=== PATIENT | male | born 1950 | race Caucasian/White ===

== ENCOUNTER 2018-04-20 22:56 | Emergency (ER) | payer BC, SELFPAY ==
[2018-04-20 22:57] VITALS: BP 131/72; PULSE 69; RESP 18; TEMP 37.2; O2SAT 98; BMI 30.3
--- NOTE | 2018-04-20 23:18 | CT_ITS ---
STUDY: CT ABDOMEN AND PELVIS WITHOUT CONTRAST REASON FOR EXAM: Male, 67 years old. Lower quadrant pain and loose stools. RADIATION DOSAGE (If Supplied By Facility): CTDIvol = ( 14.04 ) mGy, DLP = ( 722.34 ) mGycm TECHNIQUE: Transaxial images were obtained from the dome of the diaphragm to the symphysis pubis without oral contrast, and without intravenous contrast. Sagittal and coronal images were reconstructed. Individualized dose optimization techniques were used for this CT. COMPARISON: None. FINDINGS: The visualized lung bases are unremarkable. The visualized portions of the heart are within normal limits. Normal liver. The gallbladder is contracted. There is mild splenomegaly. Normal pancreas. Normal bilateral adrenal glands. There is nonspecific mild bilateral perinephric stranding. There is no evidence of hydronephrosis. Normal visualized stomach. The small bowel loops are fluid-filled but normal in caliber. There is a density in the descending duodenum probably due to undissolved pill. There is diverticulosis of the sigmoid and distal descending colon with inflammatory changes of the distal descending colon with thickening consistent with acute diverticulitis. No free air or drainable abscess are seen although there are small pockets of air which may represent contained perforation. The appendix is visualized and appears normal. There is diffuse atherosclerotic calcification of the abdominal aorta with elongation and tortuosity, but without a demonstrated aneurysm. Normal inferior vena cava. Normal retroperitoneum. Normal urinary bladder. There is a small umbilical hernia containing fat. There are small bilateral inguinal hernias containing fat. There are degenerative changes in the lower lumbar spine. CT/Abdomen/Pelvis without Cont IMPRESSION: Acute diverticulitis of the distal descending and sigmoid colon as described above. No demonstrated drainable abscess. Electronically Signed: Silverio Brady MD at 0:36 EDT Tel , Service support ,
--- NOTE | 2018-04-20 23:19 | ED.VISSUMM ---
- ER Visit Summary Date of Service: 04/20/18 Chief Complaint: Left lower quadrant abdominal pain History of Present Illness: The patient is a 67 M left lower quadrant abdominal pain starting this afternoon. She had mild vague symptoms when helping with [employer]. After driving home, had sharp sensation dropping into his knees, he stood up right away. States had loose stools 2 days ago, however is normalized. No fevers chills or sweats. No nausea or vomiting. No urinary symptoms. No history of kidney stones or diverticulitis. Has had a colonoscopy in the past with no acute findings. Patient is on medications for hypertension and gout. No surgical history. States currently denies any pain. Pain worse with palpation. Physical Examination: General: Alert and oriented ?3, no acute distress HEENT: Normocephalic, atraumatic. Moist mucosa membranes Neck: supple, nontender. Cardiovascular: Regular rate and rhythm, no murmurs Respiratory: Normal breath sounds, symmetric, no distress Abdomen: Soft, nondistended. Reproducible umbilical hernia. Pinpoint tenderness left lower quadrant, no guarding or rebound. Extremities: Nontender, no edema, pulses intact ?4 Neuro: no focal neurological deficits. Test Results: Urine noted leukocytes, no hematuria. CT abdomen pelvis distal: Sigmoid diverticulitis with no complications. Emergency Department Course and Treatment: Patient vitals stable, nontoxic. Nonsurgical abdomen. Pinpoint left lower quadrant pain. Urine negative for hematuria. CT did note signs of diverticulitis distal colon sigmoid. Patient did not require any pain medicines. Cipro Flagyl started orally. He will use Tylenol as needed. Signs and symptoms to return to the ED. Follow-up with his PCP. All questions were answered. Treatment Plan: [] Disposition: Discharge Impression: Acute diverticulitis This note was generated with [employer] dictation software. It may contain incorrect words, spelling, and punctuation that were not noted in review of the chart prior to signing ED Disposition - Plan for ED Patient: Disposition: Home or Assisted Living Chief Complaint: Abd Pain Diagnosis: Acute diverticulitis Instructions: ED Diverticulitis Prescriptions: Metronidazole [Flagyl] 500 mg PO Q8H #30 tablet Ciprofloxacin [Cipro] 500 mg PO BID #20 tablet Referrals: NOT,DEFINED [NON-STAFF] - Additional Instructions: Distal colon and sigmoid diverticulitis. Take Cipro and Flagyl as prescribed. Use Tylenol as needed. [facility]. Return if any worsening symptoms. Avoid alcohol products while on Flagyl up to week after.
[2018-04-20 23:46] LABS: Mucous, Urine 0 SEEN /hpf (<or=2+); Red Blood Cells-Urine 0 SEEN /hpf (0-5); Squamous Epithelial Cells - UA 0 SEEN /hpf (0-5)
[2018-04-20 23:56] LABS: Color, Urine Yellow (Yellow); Glucose, Dipstick Normal (Normal); Ketone-Dipstick Negative (Negative); Leukocyte Esterase-Dipstick 25 /ul (Negative); Nitrite-Dipstick Negative (Negative); Occult Blood-Urine Negative /ul (Negative); Protein-Dipstick Negative (Negative); Specific Gravity, Urine 1.015 (1.002-1.030); Urine Bilirubin Dipstick Negative (Negative); Urine Clarity Clear (Clear); Urine Urobilinogen Normal (Normal)
[2018-04-21 00:03] LABS: Bacteria RARE /hpf (None Seen); White Blood Cells 0-5 SEEN /hpf (0-5)
[2018-04-21 01:13] VITALS: BP 113/62; PULSE 66; RESP 18; O2SAT 95
[2018-04-21] MEDS: metroNIDAZOLE 500 MG Tablet PO (01:13)
[2018-04-21] MEDS: Ciprofloxacin 500 MG Tablet PO (01:13)
== END 2018-04-21 01:14 | disposition home or self-care (01) ==
PROVIDERS: Emergency Provider Emergency Medicine
DX: K57.32 Diverticulitis of large intestine without perforation or abscess without bleeding (principal); I10 Essential (primary) hypertension; M10.9 Gout, unspecified; Z87.891 Personal history of nicotine dependence
CPT/HCPCS: 74176; 81001; 99283

== ENCOUNTER 2018-06-06 06:05 | Day surgery (SDC) | payer BC, SELFPAY ==
[2018-06-06] VITALS (8 sets, daily range): BP systolic 93–135; BP diastolic 50–82; PULSE 50–58; RESP 16; TEMP 36.5–36.6; O2SAT 94–100; BMI 29.6
--- NOTE | 2018-06-06 07:00 | COLBX_PTH ---
PATIENT: VERNA VALE LOC: EN U#:[id number] AGE/SX: 67/M ROOM: RE06/06/[address]: Dr. Jus Alfaro MD : 1950 BED: DIS: 06/06/2018 SPEC #: [id number] RECD: 06/06/18 12:48 STATUS: MONE CASSANDRA #: [id number] NADJA: 06/06/18 07:[address]: Jus Alfaro DEPT: SURGICAL PATHOLOGY RECD BY: Quinn Herman ENTERED: 06/06/18 13:58 SP TYPE: COLON BX OTHR DR: No Primary Care Phys Tissues: Descending colon Procedures: Surgery Specimen Level IV HEADER OPERATION: Colonoscopy PRE-OP DIAGNOSIS: Diverticulitis TISSUE SUBMITTED: Polyp descending colon MICROSCOPIC DIAGNOSIS Descending colon polyp, biopsy: Polypoid fragment of benign colonic mucosa. See comment. AM:gregory 06/07/18 COMMENT Neither hyperplastic nor adenomatous change is seen. Clinical correlation is suggested. MICROSCOPIC DESCRIPTION Slides are reviewed. GROSS DESCRIPTION Received in fixative is one container labeled with the patient's name and designated polyp descending colon. The specimen consists of one irregular fragment of light mcnamara soft tissue that measures 0.3 x 0.2 x 0.1 cm. The specimen is totally submitted in one cassette. / SJ:rg 06/06/18 TC:5 [facility]: [id number]
--- NOTE | 2018-06-06 07:37 | PCM.OPRPT ---
Problem List (1) Screening for intestinal cancer Status: Acute Report of Operation Date of Procedure: 06/06/18 Pre-Operative Diagnosis: Screening for intestinal cancer Post-Operative Diagnosis: Sessile polyp of the descending colon. Pancolonic diverticulosis. Widely patent distal sigmoid colorectal anastomosis Surgery/Procedure Performed:: Colonoscopy with hot snare polypectomy Description of Surgical Findings:: Timeout informed consent was obtained. 59-year-old gent was taken to the endoscopy suite placed in left loud skin position. Throughout the procedure he received 85 mg Demerol and 3 mg of Versed is intravenous sedation. Digital rectal exam performed. Normal anal tone. 2+ hemorrhoids. Tubular smooth prostate. No mass lesions. Flexible colonoscope inserted the rectum advanced through a slightly tortuous sigmoid colon it was then readily advanced to the transverse colon with some transabdominal pressure is nicely advanced to the cecum. Bowel prep was good. The cecum ileocecal valve was nicely achieved. The scope was then carefully withdrawn from the cecum ascending colon transverse colon into the descending colon. Pancolonic diverticulosis was identified. In the descending colon there was a sessile 7 mm diameter polyp. Hot snare was used to resect and retrieved. Hemostasis was intact. The scope was further withdrawn with extensive diverticular disease of the remainder of the descending and sigmoid colon. A widely patent colorectal anastomosis identified. Scope was retroflexed in the rectum anorectal verge inspected mild hemorrhoidal changes noted. Excess fluid and air was aspirated free. The procedure was completed with the patient tolerating it well. Impression Sessile polyp of the descending colon Pancolonic diverticulosis Widely patent colorectal anastomosis The patient's previous colonoscopy was 2006. He had a bout of acute diverticulitis April 20, 2018. Pancolonic diverticulosis identified. No findings of acute inflammation at this time. Pending follow-up pathology will recommend follow-up colonoscopy at 3-5 years. Scope was inserted 0714. The cecum was reached at 0720. Procedure was completed at 0732. No current primary care physician. Medical care provided by the [facility] Jus Alfaro M.D., F.A.C.S. Type of Anesthesia:: IV Sedation
== END 2018-06-06 08:32 | disposition home or self-care (01) ==
LOC: EN 06:05 → AC 06:06
PROVIDERS: Visit Provider Surgery
PROC: 0DJD8ZZ Inspection of Lower Intestinal Tract, Via Natural or Artificial Opening Endoscopic (ICD-10-PCS; CPT 45378; principal; 2018-06-06 06:55)
DX: Z12.11 Encounter for screening for malignant neoplasm of colon (principal); K63.5 Polyp of colon; K57.92 Diverticulitis of intestine, part unspecified, without perforation or abscess without bleeding; K64.9 Unspecified hemorrhoids; M19.90 Unspecified osteoarthritis, unspecified site; I10 Essential (primary) hypertension; M10.9 Gout, unspecified; G47.30 Sleep apnea, unspecified; Z79.899 Other long term (current) drug therapy; Z87.891 Personal history of nicotine dependence
CPT/HCPCS: 45385; 88305; 99152; 99153; J7120

== ENCOUNTER → 2018-11-17 08:54 | Outpatient (CLI) | payer BC, SELFPAY ==
[2018-11-17 08:59] LABS: Bacteria 0 SEEN /hpf (None Seen); Mucous, Urine 0 SEEN /hpf (<or=2+); Red Blood Cells-Urine 0 SEEN /hpf (0-5)
[2018-11-17 10:17] LABS: Absolute Lymphocyte Count 2.09 X10^3/ul (0.83-4.51); Absolute Neutrophil Count 3.3 X10^3/uL (2.0-7.7); Basophil# 0.02 X10^3/uL; Basophil% 0.3 % (0-1); Color, Urine Yellow (Yellow); Eosinophil# 0.17 X10^3/uL; Eosinophils% 2.8 % (0-5); Glucose, Dipstick Normal (Normal); Hematocrit 42.7 % (40-54); Hemoglobin 14.5 g/dl (13.0-16.5); Ketone-Dipstick Negative (Negative); Leukocyte Esterase-Dipstick 25 /ul (Negative); Lymphocyte # 2.09 X10^3/ul (4.0); Lymphocyte % 33.9 % (19-41); Mean Corpuscular Hgb 33.7 pg (27.0-32.0); Mean Corpuscular Volume 99.3 fL (80-94); Mean Platelet Vol. 10.6 fl (6.2-12.0); Monocyte% 9.7 % (0-10); Neutrophil # 3.27 X10^3/uL (2.7-7.7); Neutrophil % 53.1 % (47-70); Nitrite-Dipstick Negative (Negative); Occult Blood-Urine Negative /ul (Negative); POSITIVE COUNT NO; POSITIVE DIFFERENTIAL NO; POSITIVE MORPHOLOGY NO; Platelet Count 176 K/mm3 (150-450); Protein-Dipstick 15 mg/dl (Negative); RBC Distribution Width CV 13.2 % (11.6-14.6); RBC Distribution Width SD 47.6 fl (35.1-43.9); Urine Bilirubin Dipstick Negative (Negative); Urine Clarity Sl. Cloudy (Clear); Urine Urobilinogen Normal (Normal); White Blood Count 6.2 K/mm3 (4.4-11.0)
[2018-11-17 10:26] LABS: Squamous Epithelial Cells - UA 0-5 SEEN /hpf (0-5); White Blood Cells 0-5 SEEN /hpf (0-5)
[2018-11-17 10:35] LABS: Vitamin D,25 Hydroxy 56.1 ng/mL (29.95-100.01)
[2018-11-17 10:50] LABS: AST(SGOT) 48 U/L (15-37); Alanine Aminotransfer ALT/SGPT 77 U/L (16-61); Alkaline Phosphatase 93 U/L (45-117); Anion Gap 10 (5-15); BUN 15 mg/dL (7-18); BUN/Creat Ratio 11.6 RATIO (10-20); Chloride 102 mmol/L (98-107); Cholesterol 156 mg/dL (200); Creatinine, Serum 1.29 mg/dL (0.70-1.30); EST Glomerular Filtration Rate 59 mL/min (>60); Est Glom Filt Rate - Afr Amer 71 mL/min (>60); Globulin 3.9 g/dL (2.2-4.2); Glucose 119 mg/dL (74-106); High Density Lipoprotein 48 mg/dL; Protein, Total 7.9 g/dL (6.4-8.2); Sodium Level 139 mmol/L (136-145); Thyroid Stim Hormone (TSH) 0.93 uIU/mL (0.358-3.74); Triglycerides 166 mg/dL; Very Low Density Lipoprotein 33 mg/dL (5-40)
== END ==
PROVIDERS: Family Provider Family Medicine; PCP Family Medicine; Visit Provider Family Medicine
DX: I10 Essential (primary) hypertension (principal); M10.9 Gout, unspecified; E55.9 Vitamin D deficiency, unspecified; Z13.220 Encounter for screening for lipoid disorders
CPT/HCPCS: 36415; 80053; 80061; 81001; 82306; 84443; 84550; 85025

== ENCOUNTER → 2018-11-29 08:12 | Outpatient (CLI) | payer BC, SELFPAY ==
[2018-11-29 11:07] LABS: ALB/GLOB Ratio 1.1 RATIO (0.9-2.4); AST(SGOT) 54 U/L (15-37); Alanine Aminotransfer ALT/SGPT 76 U/L (16-61); Albumin, Serum 3.8 g/dL (3.2-5.0); Alkaline Phosphatase 84 U/L (45-117); Anion Gap 11 (5-15); BUN 17 mg/dL (7-18); BUN/Creat Ratio 15.9 RATIO (10-20); Calcium,Total 9.4 mg/dL (8.5-10.1); Chloride 100 mmol/L (98-107); Creatinine, Serum 1.07 mg/dL (0.70-1.30); EST Glomerular Filtration Rate 73 mL/min (>60); Est Glom Filt Rate - Afr Amer 88 mL/min (>60); Globulin 3.4 g/dL (2.2-4.2); Glucose 106 mg/dL (74-106); Potassium 3.5 mmol/L (3.5-5.1); Protein, Total 7.2 g/dL (6.4-8.2); Sodium Level 138 mmol/L (136-145)
[2018-11-29 11:17] LABS: Hemoglobin A1c 5.1 % (4.2-6.3)
[2018-11-30 07:54] LABS: HEPATITIS B SURFACE AG Negative (Negative); Hep B Surface Antibodies Non Reactive (.); Hep C Antibodies <0.1 s/co ratio (0.0-0.9)
== END ==
PROVIDERS: Family Provider Family Medicine; PCP Family Medicine; Visit Provider Family Medicine
DX: N28.9 Disorder of kidney and ureter, unspecified (principal)
CPT/HCPCS: 36415; 80053; 83036; 86706; 86803; 87340

== ENCOUNTER 2019-02-20 08:00 | Outpatient (RCR) | payer MEDICARE, SELFPAY ==
--- NOTE | 2019-01-11 13:43 | HP.PTEVAL ---
Patient's Visit Information VERNA VALE is a 68 year old M referred to Physical Therapy by Tigre Duran DPM with a diagnosis of B plantarfascitis. Date of Evaluation: 01/11/19 Physical Therapist: Giovanni Soto PT, ATC - Visit Plan Frequency: 2x /Week Duration: 2 Weeks Plan: DTR to B calves, stick rollout, foam roller, manual stretching, and HEP - Subjective Findings: Pt reports he had B foot pain for several years. Pt reports after receiving [address] Duran, his foot pain is gone. However, pt reports he remains very tight in B gastroc regions. Pt reports he is afraid if he doesnt get his calves loosened up, his pain will return. Pt reports he has no limitations at this time. Pt reports no tingling or nmbness in B feet. No sig sleep difficulty secondary to pain. Pt reports he has no pain at this time. 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 - Pain B feet Pain Intensity (Out of 10): 0 Pain Intensity Range: 0 - Objective Neuro: B LE sensation is WNL to light touch. B achilles reflex= 1/3. Palpation: No pain on plantarfascia's. Mild heel pain. No obvious deformity. B gastrocs are very tight. ROM: L ankle DF= -9, R ankle DF= 0. MMT: B ankles 5/5 throughout. Gait. Pt ambulates with late pronation indicating pes cavus - Goals Goal 1:: I with HEP in visits Goal Time Frame: 2 Weeks - Rehabilitation Potential Physical Therapy Diagnosis: B has B foot pain secondary to B plantarfascitis Rehabilitation Potential: Good - Anticipated Interventions Patient/Client Instruction: Educate patient on: Condition, Plan of Care For the Purpose of:: To improve self management Therapeutic Exercise to Include: Flexibilty training, Active ROM For the Purpose of:: To decrease pain, To increase ROM Manual Therapy Techniques to Include: Soft tissue mobilization For the Purpose of:: To decrease pain, To increase ROM Thank you for the opportunity to evaluate your patient. For Medicare and Medicare HMO plans, please review the plan of care and approve it. It will need to be FAXED BACK to us at [phone] for Medicare purposes. For Medicare only, by signing this I certify the plan of care. Please let me know if there are questions or concerns regarding this plan of care. Physician Signature: Date:
--- NOTE | 2019-02-20 08:49 | HP.PTREVAL_ITS ---
Tigre Duran, BENNY, It has been my pleasure to treat VERNA VALE over the last 7 visits for B plantarfascitis. Please see the progress note below for an update on the physical therapy plan of care! Subjective: L foot is a little tight Objective/Function: ankle DF ROM: Bilat feet 5 degrees. B foot pain 11/02. Pt i s progressing well but pain and limited ROM continue to limit his functional mobility Plan Plan: Attempt to get 6 more visits approved to continue with decreasing pain and increasing B ankle DF ROM Goals Goal 1:: I with HEP in 5 visits Goal Time Frame: 2 Weeks Anticipated Interventions Patient/Client Instruction: Educate patient on: Condition, Plan of Care For the Purpose of:: To improve self management Therapeutic Exercise to Include: Flexibilty training, Active ROM For the Purpose of:: To decrease pain, To increase ROM Manual Therapy Techniques to Include: Soft tissue mobilization For the Purpose of:: To decrease pain, To increase ROM Please do not hesitate to contact me at [phone] by phone or Fax: if you have questions or concerns regarding this new plan of care! Sincerely, Giovanni Soto, PT, ATC
--- NOTE | 2019-05-10 11:16 | HP.PT.NRP ---
HP - Discharge Summary (1) - Patient Information VERNA VALE was seen in my office for initial evaluation on 01/11/19. The following Plan of Care was established for this patient: Initial Frequency: 2x /Week Initial Duration: 2 Weeks - Anticipated Interventions Patient/Client Instruction: Educate patient on: Condition, Plan of Care For the Purpose of:: To improve self management Therapeutic Exercise to Include: Flexibilty training, Active ROM For the Purpose of:: To decrease pain, To increase ROM Manual Therapy Techniques to Include: Soft tissue mobilization For the Purpose of:: To decrease pain, To increase ROM This patient was last seen in our office . Pertinent comments regarding their Physical therapy will appear below: Pt was treated for 7 PT visits for his B foot pain through the date of 02/20/19. Pt has not returned since that date and is discontinued at this time. At this point I will be discontinuing this patient from physical therapy. I would be happy to see this patient again in the future if found appropriate by the physician. Thank you! Giovanni Soto, PT, ATC
== END 2019-02-20 19:00 | disposition home or self-care (01) ==
LOC: PT 08:00
PROVIDERS: Family Provider Family Medicine; PCP Family Medicine; Referring Provider Podiatrist; Visit Provider Podiatrist
DX: M72.2 Plantar fascial fibromatosis (principal); M67.01 Short Achilles tendon (acquired), right ankle; M67.02 Short Achilles tendon (acquired), left ankle
CPT/HCPCS: 97110; 97140; 97161

== ENCOUNTER → 2019-02-26 06:37 | Outpatient (CLI) | payer MEDICARE, SELFPAY ==
--- NOTE | 2019-02-26 06:45 | MRI_ITS ---
STUDY: MRI RIGHT FOOT REASON FOR EXAM: Arch pain, evaluate for plantar fasciitis. TECHNIQUE: Standardized fat and water weighted pulse sequences were obtained in all 3 orthogonal planes. COMPARISON: None. FINDINGS: Normal tibiotalar and posterior subtalar articulations. Normal talonavicular articulation. Normal calcaneocuboid articulation. Normal navicular-cuneiform articulations. Normal intercuneiform articulations. Normal first tarsometatarsal articulation. Normal Lisfranc ligament. Normal second and third tarsometatarsal articulations. Normal cuboid fourth and cuboid fifth tarsometatarsal articulation. Normal first through fifth metatarsi. Normal tibialis anterior tendon. Normal extensor hallucis longus tendon. Normal extensor digitorum longus tendons. Normal peroneus longus tendon and distal insertion. Normal peroneus brevis tendon and distal insertion. Normal intrinsic muscles of the foot. There is a small plantar fibroma at the level of the first tarsometatarsal joint (T1 series 4 image 22; T1 sagittal image 16) measuring 0.3 x 0.5 x 0.6 cm (AP x transverse x length). There is no thickening or interstitial edema in the plantar fascia at the calcaneal origin. There is no bone edema or stress fracture of the calcaneus. Normal subcutis adipose space. There is a small cyst in the sinus tarsi (inversion recovery sagittal image 10) and mild subchondral cystic change in the calcaneus adjacent to the sinus tarsi. MRI/Lower Ext/No Jt/w/o IMPRESSION: Small plantar fibroma. Small cyst in the sinus tarsi. No MRI manifestations of plantar fasciitis. Electronically Signed: Kp Andre MD at 9:30 EDT Tel , Service support ,
--- NOTE | 2019-02-26 06:45 | MRI_ITS ---
STUDY: MRI LEFT MIDFOOT REASON FOR EXAM: Arch pain, evaluate for plantar fasciitis. TECHNIQUE: Standardized fat and water weighted pulse sequences were obtained in all 3 orthogonal planes. COMPARISON: None. FINDINGS: Normal tibiotalar and posterior subtalar articulations. Normal talonavicular articulation. Normal calcaneocuboid articulation. Normal navicular-cuneiform articulations. Normal intercuneiform articulations. Normal first tarsometatarsal articulation. Normal Lisfranc ligament. Normal second and third tarsometatarsal articulations. Normal cuboid fourth and cuboid fifth tarsometatarsal articulation. Normal first through fifth metatarsi. Normal tibialis anterior tendon. Normal extensor hallucis longus tendon. Normal extensor digitorum longus tendons. There is tendinosis of the submalleolar peroneus brevis and longus tendons (inversion recovery sagittal image 18) without discrete tendon tear. Normal intrinsic muscles of the foot. There is a very small plantar fibroma at the level of the first metatarsal base (T1 sagittal image 9; T1 series 5 image 17) measuring 0.2 x 0.3 x 0.5 cm (AP x transverse x length). There is no thickening or interstitial edema of the plantar fascia at the calcaneal origin. There is no bone edema or stress fracture of the calcaneus. Normal subcutis adipose space. MRI/Lower Ext/No Jt/w/o IMPRESSION: Very small plantar fibroma. Peroneal tendinosis. No MRI manifestations of plantar fasciitis. Electronically Signed: Kp Andre MD at 9:29 EDT Tel , Service support ,
== END ==
PROVIDERS: Family Provider Family Medicine; PCP Family Medicine; Referring Provider Podiatrist; Visit Provider Podiatrist
DX: M72.2 Plantar fascial fibromatosis (principal)
CPT/HCPCS: 73718

== ENCOUNTER → 2019-03-30 08:26 | Outpatient (CLI) | payer MEDICARE, SELFPAY ==
[2018-06-06 06:36] VITALS: BMI 29.6
[2019-03-30 10:52] LABS: ALB/GLOB Ratio 1.1 RATIO (0.9-2.4); AST(SGOT) 74 U/L (15-37); Alanine Aminotransfer ALT/SGPT 95 U/L (16-61); Albumin, Serum 4.1 g/dL (3.2-5.0); Alkaline Phosphatase 84 U/L (45-117); Anion Gap 9 (5-15); BUN 17 mg/dL (7-18); BUN/Creat Ratio 14.4 RATIO (10-20); Calcium,Total 9.8 mg/dL (8.5-10.1); Chloride 101 mmol/L (98-107); Creatinine, Serum 1.18 mg/dL (0.70-1.30); EST Glomerular Filtration Rate 65 mL/min (>60); Est Glom Filt Rate - Afr Amer 79 mL/min (>60); Globulin 3.6 g/dL (2.2-4.2); Glucose 112 mg/dL (74-106); Magnesium 1.7 mg/dL (1.6-2.6); Potassium 3.4 mmol/L (3.5-5.1); Protein, Total 7.7 g/dL (6.4-8.2); Sodium Level 136 mmol/L (136-145); Uric Acid 12.3 mg/dL (3.5-7.2)
[2019-03-30 11:08] LABS: Vitamin D,25 Hydroxy 42.7 ng/mL (29.95-100.01)
== END ==
PROVIDERS: Family Provider Family Medicine; PCP Family Medicine; Referring Provider Family Medicine; Visit Provider Family Medicine
DX: I10 Essential (primary) hypertension (principal); M10.9 Gout, unspecified; E55.9 Vitamin D deficiency, unspecified; R94.5 Abnormal results of liver function studies
CPT/HCPCS: 36415; 80053; 82306; 83735; 84550

== ENCOUNTER → 2019-04-06 09:28 | Outpatient (CLI) | payer MEDICARE, SELFPAY ==
--- NOTE | 2019-04-06 09:34 | US_ITS ---
HISTORY:RENAL CYST Ultrasound of the kidneys No priors Findings: The right kidney measures 11.0 x 5.8 x 5.5 cm. The cortex is preserved. There is no hydronephrosis or nephrolithiasis The left kidney measures 10.8 x 4.9 x 5.2 cm. There is a cyst that measures 1.2 x 1.1 x 1.5 cm Bladder volume is 219.06 cc. The wall is mildly thickened measuring 3.3 mm. Bilateral ureteral jets are noted. US/Kidney and Bladder IMPRESSION: Superior pole left kidney exophytic cyst Mild thickening of the bladder wall at 3.3 mm. Ureteral jets were noted bilaterally at 2115 Reported and signed by: Elvie Swartz DO Electronically Signed: Elvie Swartz DO at 21:14 EDT Tel , Service support ,
== END ==
PROVIDERS: Family Provider Family Medicine; PCP Family Medicine; Referring Provider Family Medicine; Visit Provider Family Medicine
DX: N28.1 Cyst of kidney, acquired (principal)
CPT/HCPCS: 76770

== ENCOUNTER → 2019-07-26 15:31 | Outpatient (CLI) | payer MEDICARE, SELFPAY ==
[2019-07-26 17:33] LABS: Erythrocyte Sedimentation Rate 11 mm/hr (0-20)
[2019-07-26 18:03] LABS: Vitamin B12 804 pg/mL (211-911)
[2019-07-26 18:18] LABS: PSA,Total - Annual Screen 1.07 ng/mL (0.00-4.00); Rheumatoid Factor < 10.0 IU/mL (<15)
[2019-07-30 14:07] LABS: RNP Ab <0.2 AI (0.0-0.9); Smith Ab <0.2 AI (0.0-0.9)
[2019-07-31 14:30] LABS: ANTINUCLEAR ANTIBODIES DIRECT Positive (Negative)
[2019-08-01 16:07] LABS: Arsenic, Urine 24 H 17 ug/24 hr (0-50); Immunoglobulin A 247 mg/dL (61-437); Immunoglobulin G 1152 mg/dL (700-1600); PROEL- A/G Ratio 1.3 (0.7-1.7); PROEL- Alpha-1 Globulin 0.1 g/dL (0.0-0.4); PROEL- Alpha-2 Globulin 0.8 g/dL (0.4-1.0); PROEL- Gamma Globulin 1.1 g/dL (0.4-1.8); PROEL- Globulin, Total 3.1 g/dL (2.2-3.9); PROEL- TOTAL PROTEIN 7.1 g/dL (6.0-8.5)
[2019-08-02 14:29] LABS: ARSENIC (TOTAL), URINE 11 ug/L (0-50); Creatinine, Urine 0.76 g/L (0.30-3.00)
[2019-08-02 14:30] LABS: Immunofixation Result, Serum Comment: (.); Immunoglobulin M 68 mg/dL (20-172)
== END ==
PROVIDERS: Psychiatry & Neurology Neurology; Family Provider Family Medicine; PCP Family Medicine; Visit Provider Urology
DX: G62.9 Polyneuropathy, unspecified (principal); Z12.5 Encounter for screening for malignant neoplasm of prostate
CPT/HCPCS: 36415; 82175; 82570; 82607; 82746; 82784; 83655; 83825; 84153; 84165; 85652; 86038; 86235; 86334; 86431; G0103

== ENCOUNTER 2019-08-01 00:23 | Observation (INO) | payer MEDICARE, SELFPAY ==
[2019-08-01] VITALS (7 sets, daily range): BP systolic 117–140; BP diastolic 60–91; PULSE 52–68; RESP 15–21; TEMP 36.4–36.9; O2SAT 93–97; BMI 31.8; BMI 30.7
--- NOTE | 2019-08-01 00:25 | EKG12_ITS ---
Test Reason : SYNCOPE Blood Pressure : / mmHG Vent. Rate : 055 BPM Atrial Rate : 055 BPM P-R Int : 152 ms QRS Dur : 086 ms QT Int : 454 ms P-R-T Axes : 025 023 058 degrees QTc Int : 434 ms Sinus bradycardia Otherwise normal ECG Confirmed by ANNALISA TAMEZ ([id number]), news copy editor OLGA WADE ([id number]) on 08/06/2019 3:37:05 PM Referred By: Chris Lu Confirmed By:ANNALISA TAMEZ
--- NOTE | 2019-08-01 00:28 | ED.RN ---
NO OLD EKGS IN MUSE
[2019-08-01 00:33] LABS: Absolute Neutrophil Count 4.2 X10^3/uL (2.0-7.7); Basophil# 0.04 X10^3/uL; Basophil% 0.5 % (0-1); Eosinophil# 0.19 X10^3/uL; Eosinophils% 2.6 % (0-5); Hematocrit 41.4 % (40-54); Hemoglobin 14.4 g/dL (13.0-16.5); Lymphocyte % 29.5 % (19-41); Mean Corp Hgb Conc 34.8 g/dL (32-36); Mean Corpuscular Hgb 34.2 pg (27.0-32.0); Mean Corpuscular Volume 98.3 fL (80-94); Mean Platelet Vol. 9.3 fl (6.2-12.0); Monocyte# 0.81 X10^3/uL; Monocyte% 10.9 % (0-10); NRBC Flagged by Analyzer 0 % (0-5); Neutrophil # 4.19 X10^3/uL (2.7-7.7); Neutrophil % 56.2 % (47-70); Platelet Count 149 K/mm3 (150-450); RBC Distribution Width CV 12.5 % (11.6-14.6); Red Blood Count 4.21 M/mm3 (4.6-6.2); White Blood Count 7.5 K/mm3 (4.4-11.0)
--- NOTE | 2019-08-01 00:36 | CT_ITS ---
STUDY: CT BRAIN WITHOUT CONTRAST REASON FOR EXAM: Male, 69 years old. YNCOPAL EPISODE X 2 AND FELL DOWN THE STAIRS,ABRASION TO HEAD RADIATION DOSAGE (If Supplied By Facility): CTDIvol = ( 44.99 ) mGy, DLP = ( 812.98 ) mGycm TECHNIQUE: Transaxial CT imaging of the brain was performed without administration of intravenous contrast material. Individualized dose optimization techniques were used for this CT. COMPARISON: No relevant priors. FINDINGS: Normal soft tissue structures. Normal calvarium. Normal size ventricles and extra-axial spaces for the patient's age. There are areas of decreased attenuation within the white matter tracts of the supratentorial brain, consistent with microvascular disease changes. Normal basal ganglia and thalami. Normal brainstem. Normal cerebellum. There is no intracranial hemorrhage. There are no findings of an acute ischemic infarction. Normal visualized paranasal sinuses. CT/Brain/Head without Contrast IMPRESSION: Chronic involutional changes of the brain. Electronically Signed: Natalie Ariza, at 1:43 EDT Tel , Service support ,
--- NOTE | 2019-08-01 00:36 | ED.DCSUM_ITS ---
History of Present Illness Chief Complaint: Syncope Narrative: Patient is a 69-year-old male who presents with syncope. He was walking down the steps and had an abrupt syncopal episode and fell and hit his head. He was unresponsive for less than a minute. The heard him fall and promptly got to him. He then had a second episode while in the bathroom. Again he had no prodrome. He did not feel dizzy or lightheaded beforehand. He denies any chest pain shortness of breath nausea or diaphoresis. He did recently start Cymbalta and did have a couple of martinis tonight as well. He denies any fevers or vomiting. He does not believe he injured anything in the falls. He denies any back pain abdominal pain injury to the extremities or neck pain. No history of coronary disease, no history of dysrhythmia. He is treated for hypertension. He is not diabetic and is not treated for hyperlipidemia. He is a former smoker. No history of DVT, pulmonary embolism, coagulopathies. He did have recent car travel of about 4 hours. Past Medical History - Allergies and Home Meds Allergies/Adverse Reactions: Allergies No Known Allergies Allergy (Verified 08/01/19 00:24) Primary Care Physician: Leonardo Kidd MD [Primary Care Provider] - Past Medical History: - - Hypertension, neuropathy Smoking Status: Former smoker Review of Systems All systems negative except as indicated General: Denies: Fever Cardiovascular: Reports: - - Syncope. Denies: Chest pain Respiratory: Denies: Dyspnea Gastrointestinal: Denies: Nausea, Vomiting Physical Exam Vital Signs/Narrative: Vital Signs Temp Pulse Resp BP Pulse Ox 08/01/19 00:24 98.5 F 55 L 21 H 121/71 H 96 Inital Vital Signs reviewed: Yes General: Well nourished Head: Normocephalic, - - Abrasion and skin tear to right parietal scalp Eyes: EOMI ENT: Moist mucous membranes Neck: Supple, Nontender Cardiovascular: - - Heart is regular bradycardia I do not appreciate murmur, gallop, rub Respiratory: No distress, CTA bilaterally Abdomen: Soft Extremities: Nontender, No edema Skin: Normal color Neurological: Alert, Oriented x3, Normal Strength, Normal Sensation Psychological: Normal affect Diagnostic/Tx/Re-eval Impressions Brain CT 08/01/19 00:36 IMPRESSION: Chronic involutional changes of the brain. Electronically Signed: Natalie Ariza, at 1:43 EDT Tel , Service support , 08/01/19 00:36 Brain/Head without Contrast [CT] Stat Laboratory Results 08/01/19 08/01/19 08/01/19 00:25 00:25 00:25 WBC 7.5 RBC 4.21 L Hgb 14.4 Hct 41.4 MCV 98.3 H MCH 34.2 H MCHC 34.8 RDW Std Deviation 45.0 H RDW Coeff of Chanel 12.5 Plt Count 149 L MPV 9.3 Immature Gran % (Auto) 0.300 Neut % (Auto) 56.2 Lymph % (Auto) 29.5 Jasper % (Auto) 10.9 H Eos % (Auto) 2.6 Baso % (Auto) 0.5 Absolute Neuts (auto) 4.2 Absolute Lymphs (auto) 2.20 Nucleated RBC % 0 PT 13.3 INR 1.0 D-Dimer Quant (PE/DVT) 0.40 Sodium 135 L Potassium 3.5 Chloride 101 Carbon Dioxide 27.0 Anion Gap 7 BUN 17 Creatinine 1.26 Estim Creat Clear Calc 52.78 Est GFR (MDRD) Af Amer 73 Est GFR (MDRD) Non-Af 60 BUN/Creatinine Ratio 13.5 Glucose 119 H Calcium 10.0 Troponin I < 0.015 Ethyl Alcohol 08/01/19 00:25 WBC RBC Hgb Hct MCV MCH MCHC RDW Std Deviation RDW Coeff of Chanel Plt Count MPV Immature Gran % (Auto) Neut % (Auto) Lymph % (Auto) Jasper % (Auto) Eos % (Auto) Baso % (Auto) Absolute Neuts (auto) Absolute Lymphs (auto) Nucleated RBC % PT INR D-Dimer Quant (PE/DVT) Sodium Potassium Chloride Carbon Dioxide Anion Gap BUN Creatinine Estim Creat Clear Calc Est GFR (MDRD) Af Amer Est GFR (MDRD) Non-Af BUN/Creatinine Ratio Glucose Calcium Troponin I Ethyl Alcohol 181.0 - Medical Decision Making EKG shows sinus bradycardia at a rate of 55 with no acute ischemic changes. Labs as above notable only for alcohol of 181. Although his symptoms could potentially be related to Cymbalta and alcohol I am still concerned about 2 episodes of syncope without any prodrome. Dysrhythmia is certainly on the differential. I feel at minimum he should be observed on quality assurance monitor chassis and have serial enzymes. Patient will be discussed with the hospitalist and admitted for further evaluation and management. ED Disposition - Plan for ED Patient: Disposition: Acute Care Hospital [facility] Diagnosis: Syncope Referrals: Leonardo Kidd MD [Primary Care Provider] -
[2019-08-01 00:45] LABS: Prothrombin Time (Protime)PT. 13.3 SECONDS (11.7-14.9)
[2019-08-01 00:51] LABS: Anion Gap 7 (5-15); BUN 17 mg/dL (7-18); BUN/Creat Ratio 13.5 RATIO (10-20); Chloride 101 mmol/L (98-107); Creatinine, Serum 1.26 mg/dL (0.70-1.30); EST Glomerular Filtration Rate 60 mL/min (>60); Est Glom Filt Rate - Afr Amer 73 mL/min (>60); Estimated Creatinine Clearance 52.78 ml/min; Glucose 119 mg/dL (74-106); Potassium 3.5 mmol/L (3.5-5.1); Sodium Level 135 mmol/L (136-145)
--- NOTE | 2019-08-01 02:10 | PCM.HP.STD ---
Problem List (1) Hypertension Status: Chronic (2) Syncope Status: Acute (3) Acute diverticulitis Status: Resolved History of Present Illness Date of Admission: 08/01/19 Chief Complaint: Syncope twice. The patient is a 69 year old M was brought in to ER by for 2 episodes of syncope, each lasted for about few minutes all the exact duration unclear. During first time, there was no witness. Patient had 2 drinks a martini. First 1 was while going downstairs and does not remember what happened but missed steps and fell fell down from few stairs. Patient had mild abrasion present on frontal region of his scalp. After that, patient sat down so far and and then after half an hour he went to bathroom and then he again passed out. He woke up fine after syncope. His son works and paramedics advised to go to ER. Patient further said he had physical exam on 07/31 and he passed with flying colors. No prior episode of syncope. Denies nausea, vomiting, chest pressure/pain, palpitation, missed or extra heartbeat. No seizure-like movement. No history of [place]/stroke. No major neck or head injury. CT scan did not show any acute change. Past Medical History Past Medical History (Chronic Problems): Chronic Problems (Last Reviewed 06/01/18 @ 07:39 by Citlalli Dyer) Hypertension (Chronic) Medical History: Medical History (Last Reviewed 06/01/18 @ 07:39 by Citlalli Dyer) Acute diverticulitis (Resolved) K57.92 Arthritis M19.90 Diverticulitis K57.92 Allergies No Known Allergies Allergy (Verified 08/01/19 00:24) Home Medications: Ambulatory Orders Medication Instructions Recorded Calcium/Magnesium/Zinc 1 each PO DAILY 06/06/18 [Cangwij-Ebaypscoq-Lxnt Tablet] Cholecalciferol (VIT D3) [Vitamin 1,000 unit PO DAILY 06/06/18 D] Glucosamine HCl 1,500 mg PO DAILY 06/06/18 Hydrochlorothiazide [Hctz] 25 mg PO DAILY 06/06/18 Lactobacillus Combo No.11 1 each PO DAILY 06/06/18 [Probiotic] Lisinopril [Zestril] 5 mg PO DAILY 06/06/18 Methylsulfonylmethane [MSM] 1,000 mg PO DAILY 06/06/18 Metoprolol Succinate 25 mg PO BID 06/06/18 Multivitamins,Ther W-Minerals 1 tablet PO DAILY 06/06/18 [Multivitamin With Minerals] Surgical History: Surgical History (Last Reviewed 06/01/18 @ 07:39 by Citlalli Dyer) Aftercare following finger joint replacement surgery Z47.1, Z96.698 Smoking Status: Former smoker - Quit more than 20 years ago. Had total about 20-25 pack years of his smoking - *Family History Paternal Family History: Family History (Last Updated 06/01/18 @ 07:39 by Citlalli Dyer) Mother Breast cancer Heart disease Thyroid disorder History Items: Cancer, - - Family history of father had lung cancer, brother prostate cancer in mother breast cancer. Review of Systems Constitutional: Denies: Chills, Fever, Weight Change HEENT: Denies: Head Aches, Sinus Congestion, Sinus Drainage Cardiovascular: Reports: Syncope. Denies: Chest Pain, Palpitations Respiratory: Denies: Cough, Shortness of breath at rest, Sputum production Gastrointestinal: Denies: Abdominal Pain, Nausea, Vomiting Genitourinary: Denies: Dysuria Musculoskeletal: Denies: Joint Pain, Joint Tenderness Skin: Reports: - - Mild abrasion after fall on head. Denies: Rash, Wounds Neurological: Reports: Incoordination. Denies: Balance problems, Focal weakness, Numbness, Tingling Psychiatric: Denies: Anxiety, Depression, Homicidal Ideations, Suicidal Ideations Hematologic/ Lymphatic: Denies: Easy Bruising, Easy Bleeding VTE Information - Inpt Only VTE Present on Admission: No VTE Mechan Device Prophylaxis: None VTE Pharm Prophylaxis ordered?: Yes Patient Problems: Active and Suspected Problems (Last Reviewed 06/01/18 @ 07:39 by Citlalli Dyer) Syncope (Acute) - Physical Exam General: Alert, Oriented x3, Cooperative HEENT: Atraumatic, PERRLA, EOMI, Normocephalic Neck: Supple, No JVD, Negative Carotid Bruits Lungs: Clear to auscultation, Normal air movement, No rhonchi, No wheeze, No rales Cardiovascular: Regular rate, Regular Rhythm, Normal S1, Normal S2, No murmurs Abdomen: Bowel Sounds Present, Soft, Non Tender, Non-Distended Extremities: No edema, Capillary Refill Less than 3 Seconds Skin: No rashes, No breakdown Musculoskeletal: No Tenderness to Palpation of Joints or Extremities, Arthritic Changes Neurological: Cranial nerves II-XII grossly intact, Deep Tendon Reflexes 2+/4 and Symmetrical, Neuro grossly intact Psych/Mental Status: Normal Affect, Appropriate Vital Signs Temp Pulse Resp BP Pulse Ox 98.5 F 55 L 21 H 121/71 H 96 08/01/19 00:24 08/01/19 00:24 08/01/19 00:24 08/01/19 00:24 08/01/19 00:24 Oxygen Delivery Method Room Air Weight: 209 lb 3.499 oz Body Mass Index (BMI) 31.8 Laboratory Tests Past 24 Hrs 08/01/19 08/01/19 08/01/19 00:25 00:25 00:25 WBC 7.5 RBC 4.21 L Hgb 14.4 Hct 41.4 MCV 98.3 H MCH 34.2 H MCHC 34.8 RDW Std Deviation 45.0 H RDW Coeff of Chanel 12.5 Plt Count 149 L MPV 9.3 Immature Gran % (Auto) 0.300 Neut % (Auto) 56.2 Lymph % (Auto) 29.5 Woodson % (Auto) 10.9 H Eos % (Auto) 2.6 Baso % (Auto) 0.5 Absolute Neuts (auto) 4.2 Absolute Lymphs (auto) 2.20 Nucleated RBC % 0 PT 13.3 INR 1.0 D-Dimer Quant (PE/DVT) 0.40 Sodium 135 L Potassium 3.5 Chloride 101 Carbon Dioxide 27.0 Anion Gap 7 BUN 17 Creatinine 1.26 Estim Creat Clear Calc 52.78 Est GFR (MDRD) Af Amer 73 Est GFR (MDRD) Non-Af 60 BUN/Creatinine Ratio 13.5 Glucose 119 H Calcium 10.0 Troponin I < 0.015 Ethyl Alcohol 08/01/19 00:25 WBC RBC Hgb Hct MCV MCH MCHC RDW Std Deviation RDW Coeff of Chanel Plt Count MPV Immature Gran % (Auto) Neut % (Auto) Lymph % (Auto) Woodson % (Auto) Eos % (Auto) Baso % (Auto) Absolute Neuts (auto) Absolute Lymphs (auto) Nucleated RBC % PT INR D-Dimer Quant (PE/DVT) Sodium Potassium Chloride Carbon Dioxide Anion Gap BUN Creatinine Estim Creat Clear Calc Est GFR (MDRD) Af Amer Est GFR (MDRD) Non-Af BUN/Creatinine Ratio Glucose Calcium Troponin I Ethyl Alcohol 181.0 Assessment/Plan All Active Problems (Last Reviewed 06/01/18 @ 07:39 by Citlalli Dyer) Screening for intestinal cancer (Acute) Syncope (Acute) Acute diverticulitis (Resolved) The patient is a 69 year old M was brought in to ER by for 2 episodes of syncope, each lasted for about few minutes all the exact duration unclear. No prior episode of syncope. Denies nausea, vomiting, chest pressure/pain, palpitation, missed or extra heartbeat. No seizure-like movement. No history of [place]/stroke. No major neck or head injury. CT scan did not show any acute change. 1. Syncope exact etiology unclear possible alcohol-related/orthostatic/vasovagal: Patient is being admitted in PCU. Orthostatic vitals. Serial troponin enzymes. 2D echo. Patient denies seizure-like movement and does not have history of epilepsy. PT and OT ordered. Serum alcohol level was elevated 181. D-dimer negative. Patient denies heavy alcohol use except once or twice per week. LFT and GGT ordered. Patient denies coronary artery disease/[place] denies had a heart cath recently stress test. Magnesium and TSH ordered. 2. Hypertension: Blood pressure is controlled. 3. Mild hyperglycemia: A1c ordered. 4. DVT prophylaxis: On Lovenox 40 mg subcu daily. Clinical Impression(s) from Imaging Studies Brain CT 08/01/19 00:36 IMPRESSION: Chronic involutional changes of the brain. Laboratory Results 08/01/19 00:25: WBC 7.5, RBC 4.21 L, Hgb 14.4, Hct 41.4, MCV 98.3 H, MCH 34.2 H, MCHC 34.8, RDW Std Deviation 45.0 H, RDW Coeff of Chanel 12.5, Plt Count 149 L, MPV 9.3, Immature Gran % (Auto) 0.300, Neut % (Auto) 56.2, Lymph % (Auto) 29.5, Woodson % (Auto) 10.9 H, Eos % (Auto) 2.6, Baso % (Auto) 0.5, Absolute Neuts (auto) 4.2, Absolute Lymphs (auto) 2.20, Nucleated RBC % 0 08/01/19 00:25: Sodium 135 L, Potassium 3.5, Chloride 101, Carbon Dioxide 27.0, Anion Gap 7, BUN 17, Creatinine 1.26, Estim Creat Clear Calc 52.78, Est GFR (MDRD) Af Amer 73, Est GFR (MDRD) Non-Af 60, BUN/Creatinine Ratio 13.5, Glucose 119 H, Calcium 10.0, Troponin I < 0.015 08/01/19 00:25: PT 13.3, INR 1.0, D-Dimer Quant (PE/DVT) 0.40 08/01/19 00:25: Ethyl Alcohol 181.0 Code Visit OBSV E&M: 78897 Initial observation care L3
[2019-08-01] MEDS: 0.9% Normal Saline 1,000 ML 100 ML IV (04:30)
[2019-08-01] MEDS: 0.9% NaCl Peripheral Flush Adult/Peds IV (04:30)
[2019-08-01 05:22] LABS: AST(SGOT) 66 U/L (15-37); Alanine Aminotransfer ALT/SGPT 95 U/L (16-61); Alkaline Phosphatase 89 U/L (45-117); Anion Gap 11 (5-15); BUN 15 mg/dL (7-18); BUN/Creat Ratio 13.8 RATIO (10-20); Bilirubin, Direct 0.21 mg/dL (0.00-0.30); Calcium,Total 9.7 mg/dL (8.5-10.1); Chloride 103 mmol/L (98-107); Creatinine, Serum 1.09 mg/dL (0.70-1.30); EST Glomerular Filtration Rate 71 mL/min (>60); Est Glom Filt Rate - Afr Amer 86 mL/min (>60); Estimated Creatinine Clearance 61.01 ml/min; GGTP 166 U/L (15-85); Globulin 3.7 g/dL (2.2-4.2); Glucose 96 mg/dL (74-106); Magnesium 2.1 mg/dL (1.6-2.6); Potassium 3.7 mmol/L (3.5-5.1); Protein, Total 7.7 g/dL (6.4-8.2); Sodium Level 140 mmol/L (136-145); Thyroid Stim Hormone (TSH) 1.32 uIU/mL (0.358-3.74)
[2019-08-01] MEDS: Enoxaparin 40 MG/0.4 ML Syringe SC (05:38)
--- NOTE | 2019-08-01 05:55 | ECHOD_ITS ---
Reason For Study: Syncope Procedure This was a 2D Doppler, Color Flow transthoracic echocardiogram. Exam performed portable in patient room. Left Ventricle Normal size and thickness. The estimated ejection fraction is 65 %. Stage 1 diastolic dysfunction. No regional wall motion abnormalities noted. Right Ventricle Mildly dilated right ventricle. Normal systolic function. Atria The left atrium is mildly enlarged. Normal right atrium. Normal atrial septum. Mitral Valve The mitral valve is structurally normal. No prolapse or stenosis seen. Tricuspid Valve Normal tricuspid valve. Mild (1+) tricuspid valve insufficiency. Right ventricular systolic pressure estimated to be 39 mmHg. Mild pulmonary hypertension. Aortic Valve Trisinus/trileaflet aortic valve. Mild diffuse aortic valve thickening. Trivial aortic valve insufficiency. Pulmonic Valve Normal pulmonic valve. Great Vessels Normal aortic root. Normal arch. Normal inferior vena cava. Inferior vena cava collapse with sniff. Pericardium/Pleural No pericardial effusion. MMode/2D Measurements & Calculations LVIDd: 4.7 cm IVSd: 1.1 cm Ao root diam: 3.8 cm LVIDs: 2.5 cm LVPWd: 1.2 cm RVDd: 3.7 cm FS: 45.8 % LAV(MOD-bp): 61.4 ml LA A4 area: 21.1 cm2 LA dimension(2D): 3.4 cm LAV(MOD-bp) Indexed: 29.9 ml/m2 LAV(MOD-sp2): 59.4 ml LAV(MOD-sp4): 62.6 ml RA A4 area: 19.0 cm2 Doppler Measurements & Calculations MV E max ravi: 96.1 cm/sec Lat Peak E' Ravi: 7.3 cm/sec Med Peak E' Ravi: 7.7 cm/sec MV A max ravi: 110.5 cm/sec E/E' lat: 13.2 E/E' med: 12.5 MV E/A: 0.87 Ao V2 max: 175.0 cm/sec LV V1 max: 139.0 cm/sec PA V2 max: 112.2 cm/sec Ao max P.2 mmHg LV V1 max P.7 mmHg TR max ravi: 291.4 cm/sec TR max P.0 mmHg Interpretation Summary The estimated ejection fraction is 65 %. Stage 1 diastolic dysfunction. Mildly dilated right ventricle. Mild (1+) tricuspid valve insufficiency. Right ventricular systolic pressure estimated to be 39 mmHg. Mild pulmonary hypertension. Trivial aortic valve insufficiency. There is no comparison study available. Ordering Physician: Chris Lu Referring Physician: Leonardo Kidd Performed By: Pippa Polanco RDCS
--- NOTE | 2019-08-01 13:40 | STRESSREP_ITS ---
Stress Test Report Date: 08/01/2019 Procedure: Exercise tolerance test/imaging study Indications: Shortness of breath Consent: Per the patient Procedure: The patient exercised on a Mateus protocol for 6 minutes and 30 seconds achieving a peak heart rate of 153 bpm (102 % predicted maximal heart rate) with a peak blood pressure 190/70 mmHg and a peak MET capacity of 7.7 METs. The baseline ECG demonstrated sinus bradycardia. The peak exercise ECG demonstrated sinus tachycardia with occasional PACs and PVCs with no evidence of significant ischemia. EKG during recovery revealed occasional PACs and PVCs initially with no evidence of ischemia [There were no cardiac dysrhythmias pretest, during exercise, or recovery]. Patient had occasional PACs and PVCs. The functional capacity was considered normal for age. There was [no complaint of chest discomfort during exercise or recovery]. The examination was discontinued secondary to leg discomfort. Impression: 1. Technically adequate (percent predicted maximal heart rate greater than 85%) exercise tolerance test 2. Stress test is[negative] for exercise-induced EKG changes of ischemia 3. The test test is negative for exercise-induced chest pain 4. Functional capacity is normal for age 5. Nuclear images pending Myocardial perfusion imaging study: Technique: The patient was injected with [11.6] mCi of technetium 99m Cardiolite and subsequently rest SPECT Cardiolite nuclear imaging was obtained in the horizontal long, vertical long, and short axis views. The patient exercised on a Mateus protocol. Please see above for details. The patient was injected with 36 mCi of technetium 99m Cardiolite and subsequently stress SPECT Cardiolite nuclear imaging was obtained in the horizontal long, vertical long, and short axis views. A gated Cardiolite study at peak stress was obtained. Interpretation: Rest and stress SPECT Cardiolite nuclear imaging status post realignment, normalization, and attenuation correction, demonstrates mildly decreased radioisotope uptake in the inferior wall on both the rest and stress images prior to attenuation correction which normalizes after attenuation correction suggestive of diaphragmatic attenuation artifact. There is mildly decreased radioisotope uptake in the apex on both the rest and stress images suggestive of apical thinning, normal variant. There is no evidence of significant ischemia or infarction. The gated Cardiolite study demonstrates no significant regional wall motion abnormalities. The reported LVEF is 67 %. Impression: 1. There is no evidence of significant ischemia or infarction. 2. The gated Cardiolite study reports an LVEF of 67 %. This note was generated with [employer] software. It may contain incorrect words, spelling, and punctuation that were not noted in checking the note before signing.
--- NOTE | 2019-08-01 13:59 | PCM.DC ---
- Discharge Diagnoses Current Active Problems: Current Active and Chronic Problems (Last Reviewed 06/01/18 @ 07:39 by Citlalli Dyer) Syncope (Acute) Hypertension (Chronic) You will use the following diet at home:: Cardiac Your food should be the consistency of: Regular Your liquids should be the consistency of: Regular/Thin Discharge Activity: Return to Normal Activity Allergies/Adverse Reactions: Allergies No Known Allergies Allergy (Verified 08/01/19 00:24) Medications to take at Discharge Calcium/Magnesium/Zinc [Xkoinla-Dwkoqajlb-Pgeh Tablet] 1 each PO DAILY 06/06/18 Cholecalciferol (VIT D3) [Vitamin D3] 1,000 unit PO DAILY 06/06/18 Glucosamine HCl 1,500 mg PO DAILY 06/06/18 Hydrochlorothiazide [Hctz] 25 mg PO DAILY 06/06/18 Lactobacillus Combo No.11 [Probiotic] 1 each PO DAILY 06/06/18 Lisinopril [Zestril] 5 mg PO DAILY 06/06/18 Methylsulfonylmethane [MSM] 1,000 mg PO DAILY 06/06/18 Multivitamins,Ther W-Minerals [Multivitamin With Minerals] 1 tablet PO DAILY 06/06/18 Primary Care Physician: Leonardo Kidd MD [Primary Care Provider] - Please follow up with your Primary Care Physician in: 1-2 weeks Test Results: Test results from this visit will be discussed in further detail at your follow-up appointment, if applicable. Please Follow Up With: Andrea Cox MD When: 1-2 weeks Proposed Discharge Date: 08/01/19
--- NOTE | 2019-08-01 14:40 | PCM.DC.SUM ---
<Vish Langley - Last Filed: 08/01/19 14:40> Discharge Date and Diagnosis Date of Admission: 08/01/19 Date of Discharge: 08/01/19 - Primary Discharge Diagnosis Active and Suspected Problems (Last Reviewed 06/01/18 @ 07:39 by Citlalli Dyer) Syncope (Acute) Mild sinus bradycardia Alcohol intoxication Hypertension Pulmonary hypertension Obstructive sleep apnea, compliant with home CPAP - Secondary Discharge Diagnosis Chronic Problems (Last Reviewed 06/01/18 @ 07:39 by Citlalli Dyer) Hypertension (Chronic) Hospital Course and Treatment Imaging Results: Diagnostics: CT/Brain/Head without Contrast IMPRESSION: Chronic involutional changes of the brain. 08/01/19 05:55 Echo Complete [ECHO] AM (NON MEDS) Interpretation Summary The estimated ejection fraction is 65 %. Stage 1 diastolic dysfunction. Mildly dilated right ventricle. Mild (1+) tricuspid valve insufficiency. Right ventricular systolic pressure estimated to be 39 mmHg. Mild pulmonary hypertension. Trivial aortic valve insufficiency. There is no comparison study available. 08/01/19 09:15 Nuclear Stress Test - Treadmil [NM] Routine Impression: 1. There is no evidence of significant ischemia or infarction. 2. The gat Operations: None Procedures: 2-D Echocardiogram, Stress test Summary of Care Provided: Hospital Course: The patient is a 69 year old M with past medical history of hypertension, mild pulmonary hypertension, obstructive sleep apnea, obesity, who presented to the emergency room with syncopal episodes. The patient had been drinking martinis, reportedly 2. He first had a syncopal episode when he missed a step and fell down a few stairs, he could not remember the circumstances of this. The second 1 was after he had sat down to use the bathroom and passed out. He woke up after an unspecified amount of time, reportedly back to baseline mental status with no postictal period. He had no history of syncope. He came to the emergency room, a CT of the brain was negative, EKG was negative, troponin was negative. His blood alcohol level was 180 consistent with severe poisoning. He was admitted to the PCU on telemetry. He was given IV fluids. He had mild sinus bradycardia on telemetry, so his metoprolol was discontinued. His rate improved into the 70s later that day. He underwent a stress test which was negative. He also went underwent a 2D echocardiogram which showed mild pulmonary hypertension, otherwise unremarkable results as above. He had borderline orthostatic hypotension going from lying to sitting but normal response sitting to standing. I advised him on behavioral modification. D-dimer was negative. TSH was normal. Troponin x3 was negative. We arranged for him to have a 48-hour Holter monitor at discharge, for which she will follow-up with cardiology in 1 to 2 weeks. He will also need to follow-up with his PCP in 1 to 2 weeks. Patient was discharged home in stable condition. This patient was seen by Vish Langley PA-C under the supervision of Doctor Hao. [] - Physical Exam General: Alert, Oriented x3, Cooperative HEENT: Atraumatic, PERRLA, EOMI, Normocephalic Neck: Supple, No JVD, Negative Carotid Bruits Lungs: Clear to auscultation, Normal air movement Cardiovascular: Regular rate, No murmurs Abdomen: Bowel Sounds Present, Soft, Non Tender Extremities: No edema, Capillary Refill Less than 3 Seconds Skin: No rashes, No breakdown Musculoskeletal: No Tenderness to Palpation of Joints or Extremities Neurological: Cranial nerves II-XII grossly intact Psych/Mental Status: Normal Affect, Appropriate, Alert and oriented to time, place, person, mood and affect Vital Signs Temp Pulse Resp BP Pulse Ox 98.4 F 68 16 140/62 H 95 08/01/19 12:06 08/01/19 12:06 08/01/19 12:06 08/01/19 12:06 08/01/19 12:06 Oxygen Delivery Method Room Air Weight: 202 lb 2.622 oz Body Mass Index (BMI) 30.7 Orthostatic Vital Signs Start: 08/01/19 05:33 Freq: q24h Status: Active Protocol: Activity Type Activity Date Activity User E-Sign Co-Sign Detail Recorded Client Recorded Date Recorded By Document 08/01/19 05:35 CS [id number] 08/01/19 05:45 CS 08/01/19 05:35 Orthostatic Vitals Standing -Blood Pressure (90/60-120/80) 117/91 H -Extremity Use Left Arm -Pulse Rate (60-100) 65 Sitting -Blood Pressure (90/60-120/80) 125/60 H -Extremity Use Left Arm -Pulse Rate (60-100) 55 L Lying -Blood Pressure (90/60-120/80) 130/71 H -Extremity Use Left Arm -Pulse Rate (60-100) 57 L Intake and Output for Last 24 Hours 07/30/19 07/31/19 08/01/19 23:59 23:59 23:59 Intake Total 878.33 / 878.33 Balance 878.33 / 878.33 Laboratory Tests Past 24 Hrs 08/01/19 08/01/19 08/01/19 00:25 00:25 00:25 WBC 7.5 RBC 4.21 L Hgb 14.4 Hct 41.4 MCV 98.3 H MCH 34.2 H MCHC 34.8 RDW Std Deviation 45.0 H RDW Coeff of Chanel 12.5 Plt Count 149 L MPV 9.3 Immature Gran % (Auto) 0.300 Neut % (Auto) 56.2 Lymph % (Auto) 29.5 [place] % (Auto) 10.9 H Eos % (Auto) 2.6 Baso % (Auto) 0.5 Absolute Neuts (auto) 4.2 Absolute Lymphs (auto) 2.20 Nucleated RBC % 0 PT 13.3 INR 1.0 D-Dimer Quant (PE/DVT) 0.40 Sodium 135 L Potassium 3.5 Chloride 101 Carbon Dioxide 27.0 Anion Gap 7 BUN 17 Creatinine 1.26 Estim Creat Clear Calc 52.78 Est GFR (MDRD) Af Amer 73 Est GFR (MDRD) Non-Af 60 BUN/Creatinine Ratio 13.5 Glucose 119 H Calcium 10.0 Magnesium Total Bilirubin Direct Bilirubin GGT AST ALT Alkaline Phosphatase Troponin I < 0.015 Total Protein Albumin Globulin TSH Ethyl Alcohol 08/01/19 08/01/19 08/01/19 00:25 04:32 07:14 WBC RBC Hgb Hct MCV MCH MCHC RDW Std Deviation RDW Coeff of Chanel Plt Count MPV Immature Gran % (Auto) Neut % (Auto) Lymph % (Auto) [place] % (Auto) Eos % (Auto) Baso % (Auto) Absolute Neuts (auto) Absolute Lymphs (auto) Nucleated RBC % PT INR D-Dimer Quant (PE/DVT) Sodium 140 Potassium 3.7 Chloride 103 Carbon Dioxide 26.0 Anion Gap 11 BUN 15 Creatinine 1.09 Estim Creat Clear Calc 61.01 Est GFR (MDRD) Af Amer 86 Est GFR (MDRD) Non-Af 71 BUN/Creatinine Ratio 13.8 Glucose 96 Calcium 9.7 Magnesium 2.1 Total Bilirubin 0.70 Direct Bilirubin 0.21 GGT 166 H AST 66 H ALT 95 H Alkaline Phosphatase 89 Troponin I < 0.015 < 0.015 Total Protein 7.7 Albumin 4.0 Globulin 3.7 TSH 1.32 Ethyl Alcohol 181.0 08/01/19 12:49 WBC RBC Hgb Hct MCV MCH MCHC RDW Std Deviation RDW Coeff of Chanel Plt Count MPV Immature Gran % (Auto) Neut % (Auto) Lymph % (Auto) [place] % (Auto) Eos % (Auto) Baso % (Auto) Absolute Neuts (auto) Absolute Lymphs (auto) Nucleated RBC % PT INR D-Dimer Quant (PE/DVT) Sodium Potassium Chloride Carbon Dioxide Anion Gap BUN Creatinine Estim Creat Clear Calc Est GFR (MDRD) Af Amer Est GFR (MDRD) Non-Af BUN/Creatinine Ratio Glucose Calcium Magnesium Total Bilirubin Direct Bilirubin GGT AST ALT Alkaline Phosphatase Troponin I < 0.015 Total Protein Albumin Globulin TSH Ethyl Alcohol Discharge Diet: Low fat/ Low Cholesterol, 2000 mg Sodium Diet Discharge Activity: Return to Normal Activity Home Medications: Medications to take at Discharge Calcium/Magnesium/Zinc [Yfnarwn-Dimqbwkei-Yhpf Tablet] 1 each PO DAILY 06/06/18 Cholecalciferol (VIT D3) [Vitamin D3] 1,000 unit PO DAILY 06/06/18 Glucosamine HCl 1,500 mg PO DAILY 06/06/18 Hydrochlorothiazide [Hctz] 25 mg PO DAILY 06/06/18 Lactobacillus Combo No.11 [Probiotic] 1 each PO DAILY 06/06/18 Lisinopril [Zestril] 5 mg PO DAILY 06/06/18 Methylsulfonylmethane [MSM] 1,000 mg PO DAILY 06/06/18 Multivitamins,Ther W-Minerals [Multivitamin With Minerals] 1 tablet PO DAILY 06/06/18 Primary Care Physician: Leonardo Kidd MD [Primary Care Provider] - Please follow up with your Primary Care Physician in: 1-2 weeks Please Follow Up With: Andrea Cox MD When: 1-2 weeks Disposition: Home Minutes spent on discharge:: 35 Patient Condition:: Stable Medical Necessity - Tobacco Use Smoking Status: Former smoker - Quit more than 20 years ago. Had total about 20-25 pack years of his smoking Meaningful Use Info Meaningful Use Diagnoses (Choose all that apply): None applicable <Jimenez Bui - Last Filed: 08/01/19 15:32> Discharge Date and Diagnosis - Secondary Discharge Diagnosis Chronic Problems (Last Reviewed 06/01/18 @ 07:39 by Citlalli Dyer) Hypertension (Chronic) Hospital Course and Treatment Imaging Results: 08/01/19 09:15 Nuclear Stress Test - Treadmil [NM] Routine Summary of Care Provided: This patient was seen in conjunction with Vish Langley PA-C . I have independently interviewed and examined the patient and reviewed pertinent historical, laboratory, and other data. Please refer to Vish Langley PA-C note for details of this patient's presentation, findings, and recommendations. I have reviewed Vish Langley PA-C note and concur with documented findings. In brief, 69-year-old gentleman with multiple comorbidities including hypertension, obstructive sleep apnea morbid obesity with BMI of 30.7 admitted with syncopal episode x2. Patient was placed on a monitored bed where he underwent subsequent evaluation including continuous telemetry monitoring, 2D echo as well as a nuclear stress test which was negative for stress-induced ischemia. Hospital course: As documented above - Physical Exam Vital Signs Temp Pulse Resp BP Pulse Ox 98.4 F 68 16 140/62 H 95 08/01/19 12:06 08/01/19 12:06 08/01/19 12:06 08/01/19 12:06 08/01/19 12:06 Oxygen Delivery Method Room Air Weight: 91.7 kg Body Mass Index (BMI) 30.7 Intake and Output for Last 24 Hours 07/30/19 07/31/19 08/01/19 23:59 23:59 23:59 Intake Total 878.33 / 878.33 Balance 878.33 / 878.33 Laboratory Tests Past 24 Hrs 08/01/19 08/01/19 08/01/19 00:25 00:25 00:25 WBC 7.5 RBC 4.21 L Hgb 14.4 Hct 41.4 MCV 98.3 H MCH 34.2 H MCHC 34.8 RDW Std Deviation 45.0 H RDW Coeff of Chanel 12.5 Plt Count 149 L MPV 9.3 Immature Gran % (Auto) 0.300 Neut % (Auto) 56.2 Lymph % (Auto) 29.5 [place] % (Auto) 10.9 H Eos % (Auto) 2.6 Baso % (Auto) 0.5 Absolute Neuts (auto) 4.2 Absolute Lymphs (auto) 2.20 Nucleated RBC % 0 PT 13.3 INR 1.0 D-Dimer Quant (PE/DVT) 0.40 Sodium 135 L Potassium 3.5 Chloride 101 Carbon Dioxide 27.0 Anion Gap 7 BUN 17 Creatinine 1.26 Estim Creat Clear Calc 52.78 Est GFR (MDRD) Af Amer 73 Est GFR (MDRD) Non-Af 60 BUN/Creatinine Ratio 13.5 Glucose 119 H Calcium 10.0 Magnesium Total Bilirubin Direct Bilirubin GGT AST ALT Alkaline Phosphatase Troponin I < 0.015 Total Protein Albumin Globulin TSH Ethyl Alcohol 08/01/19 08/01/19 08/01/19 00:25 04:32 07:14 WBC RBC Hgb Hct MCV MCH MCHC RDW Std Deviation RDW Coeff of Chanel Plt Count MPV Immature Gran % (Auto) Neut % (Auto) Lymph % (Auto) [place] % (Auto) Eos % (Auto) Baso % (Auto) Absolute Neuts (auto) Absolute Lymphs (auto) Nucleated RBC % PT INR D-Dimer Quant (PE/DVT) Sodium 140 Potassium 3.7 Chloride 103 Carbon Dioxide 26.0 Anion Gap 11 BUN 15 Creatinine 1.09 Estim Creat Clear Calc 61.01 Est GFR (MDRD) Af Amer 86 Est GFR (MDRD) Non-Af 71 BUN/Creatinine Ratio 13.8 Glucose 96 Calcium 9.7 Magnesium 2.1 Total Bilirubin 0.70 Direct Bilirubin 0.21 GGT 166 H AST 66 H ALT 95 H Alkaline Phosphatase 89 Troponin I < 0.015 < 0.015 Total Protein 7.7 Albumin 4.0 Globulin 3.7 TSH 1.32 Ethyl Alcohol 181.0 08/01/19 12:49 WBC RBC Hgb Hct MCV MCH MCHC RDW Std Deviation RDW Coeff of Chanel Plt Count MPV Immature Gran % (Auto) Neut % (Auto) Lymph % (Auto) [place] % (Auto) Eos % (Auto) Baso % (Auto) Absolute Neuts (auto) Absolute Lymphs (auto) Nucleated RBC % PT INR D-Dimer Quant (PE/DVT) Sodium Potassium Chloride Carbon Dioxide Anion Gap BUN Creatinine Estim Creat Clear Calc Est GFR (MDRD) Af Amer Est GFR (MDRD) Non-Af BUN/Creatinine Ratio Glucose Calcium Magnesium Total Bilirubin Direct Bilirubin GGT AST ALT Alkaline Phosphatase Troponin I < 0.015 Total Protein Albumin Globulin TSH Ethyl Alcohol Code Visit OBSV E&M: [id number] Observation care discharge
== END 2019-08-01 14:00 | disposition home or self-care (01) ==
LOC: ED 01:48 → PCU 02:23
PROVIDERS: Admitting Provider Internal Medicine; Emergency Provider Emergency Medicine; Family Provider Family Medicine; PCP Family Medicine; Referring Provider Internal Medicine; Visit Provider Internal Medicine
DX: R55 Syncope and collapse (principal); I27.20 Pulmonary hypertension, unspecified; G47.33 Obstructive sleep apnea (adult) (pediatric); I10 Essential (primary) hypertension; R00.1 Bradycardia, unspecified; F10.129 Alcohol abuse with intoxication, unspecified; Y90.6 Blood alcohol level of 120-199 mg/100 ml; I08.2 Rheumatic disorders of both aortic and tricuspid valves; G62.9 Polyneuropathy, unspecified; R06.02 Shortness of breath; M19.90 Unspecified osteoarthritis, unspecified site; Z87.891 Personal history of nicotine dependence; Z79.899 Other long term (current) drug therapy; R73.9 Hyperglycemia, unspecified; E66.9 Obesity, unspecified; Z68.30 Body mass index [BMI] 30.0-30.9, adult; Z71.3 Dietary counseling and surveillance
CPT/HCPCS: 36415; 70450; 78452; 80048; 80076; 80320; 82977; 83735; 84443; 84484; 85025; 85379; 85610; 93005; 93017; 93306; 96360; 96361; 96372; 99218; 99285; A9500; J7030; A4216; G0378; G0480

== ENCOUNTER → 2019-08-01 13:59 | Outpatient (CLI) | payer MEDICARE, SELFPAY ==
[2019-08-01 02:39] VITALS: BMI 30.7
== END ==
PROVIDERS: Family Provider Family Medicine; PCP Family Medicine; Visit Provider Physician Assistant
DX: R55 Syncope and collapse (principal)
CPT/HCPCS: 93225; 93226

== ENCOUNTER → 2019-08-21 | Outpatient (CLI) | payer MEDICARE, SELFPAY ==
[2019-08-10 15:22] VITALS: BMI 31.0
--- NOTE | 2019-08-21 09:58 | CDU_ITS ---
Reason For Study: Syncope Rt. Velocities/BP Lt. Velocities/BP Prox CCA 83.8/13.4 cm/sec. Prox CCA 76.2/17.9 cm/sec. Mid CCA 48.7/10.2 cm/sec. Mid CCA 60.8/14.6 cm/sec. Dist CCA 46.5/11.3 cm/sec. Dist CCA 57.5/15.7 cm/sec. Prox ICA 38.8/14.6 cm/sec. Prox ICA 54.4/12.6 cm/sec. Mid ICA 75.3/27.4 cm/sec. Mid ICA 67.9/23.7 cm/sec. Dist ICA 85.1/28.6 cm/sec. Dist ICA 90/43.3 cm/sec. Rt. ICA/CCA = 1.75. Lt. ICA/CCA = 1.48. Prox ECA 88.2/6.9 cm/sec. Prox ECA 103.5/12.6 cm/sec. Rt. Vert. 72.9/14.6 cm/sec. Lt. Vert. 59.3/17.9 cm/sec. Right Extracranial There is homogeneous, smooth atherosclerotic plaque noted in the right common carotid artery. There is intimal thickening but no significant atherosclerotic plaque noted in the right internal carotid artery. There is intimal thickening but no significant atherosclerotic plaque noted in the right external carotid artery. Antegrade flow is noted in the right vertebral artery. Left Extracranial There is homogeneous, smooth atherosclerotic plaque noted in the left common carotid artery. There is homogeneous, smooth atherosclerotic plaque noted in the left internal carotid artery. There is intimal thickening but no significant atherosclerotic plaque noted in the left external carotid artery. Antegrade flow is noted in the left vertebral artery. Procedure Carotid Duplex [id number]. Exam performed in department. Interpretation Summary Mild (<50%) stenosis right extracranial internal carotid. Mild (<50%) stenosis left extracranial internal carotid. Flow within the vertebral arteries is antegrade bilaterally. Ordering Physician: Andrea Cox Referring Physician: Leonardo Kidd Performed By: Verito Bentley RVT
== END | disposition home or self-care (01) ==
LOC: CVS 09:56
PROVIDERS: Family Provider Family Medicine; PCP Family Medicine; Referring Provider Internal Medicine Cardiovascular Disease; Visit Provider Internal Medicine Cardiovascular Disease
DX: I47.1 Supraventricular tachycardia (principal); I49.3 Ventricular premature depolarization; R55 Syncope and collapse
CPT/HCPCS: 93880

== ENCOUNTER → 2019-10-09 08:39 | Outpatient (CLI) | payer MEDICARE, SELFPAY ==
[2019-08-10 15:22] VITALS: BMI 31.0
[2019-10-03 15:39] VITALS: BMI 31.4
[2019-10-09 08:57] LABS: Hematocrit 42.7 % (40-54); Hemoglobin 14.7 g/dL (13.0-16.5); Mean Corp Hgb Conc 34.4 g/dL (32-36); Mean Corpuscular Hgb 33.6 pg (27.0-32.0); Mean Corpuscular Volume 97.5 fL (80-94); Mean Platelet Vol. 9.5 fl (6.2-12.0); Platelet Count 153 K/mm3 (150-450); RBC Distribution Width CV 12.9 % (11.6-14.6); RBC Distribution Width SD 45.7 fl (35.1-43.9); Red Blood Count 4.38 M/mm3 (4.6-6.2); White Blood Count 7.9 K/mm3 (4.4-11.0)
[2019-10-09 09:25] LABS: Anion Gap 4 (5-15); BUN 18 mg/dL (7-18); BUN/Creat Ratio 13.8 RATIO (10-20); Calcium,Total 9.4 mg/dL (8.5-10.1); Chloride 106 mmol/L (98-107); EST Glomerular Filtration Rate 58 mL/min (>60); Est Glom Filt Rate - Afr Amer 70 mL/min (>60); Glucose 116 mg/dL (74-106); Potassium 4.6 mmol/L (3.5-5.1); Sodium Level 138 mmol/L (136-145)
--- NOTE | 2019-10-09 20:49 | TILTTABLE_ITS ---
- Staff Staff: Josie Cameron, - - Paty Mera - Summary Pre Test Resting HR: 71 - Alert and oriented: Warm and dry Pre Test Resting BP: 150/77 - Alert and oriented: Warm and dry Minimum Test HR: 68 - Alert and oriented: Diaphoretic Maximum Test HR: 94 - Alert and oriented: Lightheaded Minimum Test BP: 70/42 - Alert and oriented: Diaphoretic Maximum Test BP: 158/109 - Diaphoretic Reason for Test Termination: Reached Maximum Test Time Physician Tilt Table Report - Patient's Physicians Primary Care Physician: Leonardo Kidd Cruise Staff Member: Andrea Cox Indications/Diagnosis: Syncope Procedure Comments: The patient presented to the tilt table laboratory alert and oriented and warm and dry. The baseline heart rate was 71 bpm with a baseline blood pressure 150/77 mmHg. The cardiac rhythm was normal sinus rhythm. The patient was placed in the 70 degree upright tilt table position for 20 minutes. The patient remained alert and oriented and warm and dry. During that time the minimal heart rate appeared to be 69 bpm with a minimal blood pressure of 137/76 mmHg. The maximal heart rate appeared to be 75 bpm with a maximal blood pressure of 147/85 mmHg. The cardiac rhythm remained normal sinus rhythm. The patient's did not lose consciousness. The patient was returned to the supine position and administered nitroglycerin sublingual 0.4 mg x 1. The patient was then returned to the 70 degree upright tilt table position for approximately 11 minutes. During that time the patient remained alert and oriented but complained of being lightheaded, was noted to be yawning, and appeared diaphoretic. The minimal heart rate was 68 bpm with a minimal blood pressure recorded at 70/42 mmHg at which time the patient was reported as appearing pale. The maximal heart rate was 94 bpm with a maximal blood pressure 158/109 mmHg with the patient reported appearing pale. The cardiac rhythm remained sinus rhythm with a rare PAC/PVC as well as demonstration of a brief episode appearing compatible with some ectopic atrial rhythm versus junctional rhythm with spontaneous return to sinus rhythm. The patient did not lose consciousness. The patient was returned to the supine position where he remained alert and oriented and was subsequently noted to be warm and dry. The concluding heart rate was 72 bpm with a concluding blood pressure 116/66 mmHg. The cardiac rhythm remained sinus rhythm. The patient was taking oral intake. The patient appeared to return to baseline status prior to conclusion of the examination. Summary: 70 degree upright tilt table study status post nitroglycerin challenge demonstrating symptoms compatible with a vasovagal/neurocardiogenic (predominantly cardioinhibitory) presyncope, however, considered negative for reproducible syncope.
[2019-10-09 21:14] VITALS: BP 150/77; BP 158/109; BP 70/42
== END ==
PROVIDERS: Internal Medicine Cardiovascular Disease; Family Provider Family Medicine; PCP Family Medicine; Referring Provider Psychiatry & Neurology Neurology; Visit Provider Psychiatry & Neurology Neurology
DX: R55 Syncope and collapse (principal); I48.0 Paroxysmal atrial fibrillation; I10 Essential (primary) hypertension
CPT/HCPCS: 36415; 80048; 85027; 93660; J7040; A4216

== ENCOUNTER → 2019-12-04 08:18 | Outpatient (CLI) | payer MEDICARE, SELFPAY ==
[2019-10-03 15:39] VITALS: BMI 31.4
[2019-12-04 10:14] LABS: Absolute Lymphocyte Count 1.62 X10^3/uL (0.83-4.51); Absolute Neutrophil Count 2.8 X10^3/uL (2.0-7.7); Basophil# 0.03 X10^3/uL; Basophil% 0.6 % (0-1); Eosinophil# 0.18 X10^3/uL; Eosinophils% 3.5 % (0-5); Hematocrit 42.1 % (40-54); Hemoglobin 14.1 g/dL (13.0-16.5); Lymphocyte # 1.62 X10^3/ul (4.0); Lymphocyte % 31.8 % (19-41); Mean Corp Hgb Conc 33.5 g/dL (32-36); Mean Corpuscular Hgb 32.6 pg (27.0-32.0); Mean Corpuscular Volume 97.5 fL (80-94); Mean Platelet Vol. 10.3 fl (6.2-12.0); Monocyte# 0.43 X10^3/uL; Monocyte% 8.4 % (0-10); NRBC Flagged by Analyzer 0 % (0-5); Neutrophil # 2.82 X10^3/uL (2.7-7.7); Neutrophil % 55.5 % (47-70); Platelet Count 180 K/mm3 (150-450); RBC Distribution Width CV 12.7 % (11.6-14.6); RBC Distribution Width SD 45.6 fl (35.1-43.9); Red Blood Count 4.32 M/mm3 (4.6-6.2); White Blood Count 5.1 K/mm3 (4.4-11.0)
[2019-12-04 10:24] LABS: ALB/GLOB Ratio 0.9 RATIO (0.9-2.4); AST(SGOT) 40 U/L (15-37); Alanine Aminotransfer ALT/SGPT 75 U/L (16-61); Albumin, Serum 3.7 g/dL (3.2-5.0); Alkaline Phosphatase 85 U/L (45-117); Anion Gap 6 (5-15); BUN 16 mg/dL (7-18); BUN/Creat Ratio 11.2 RATIO (10-20); Calcium,Total 10.2 mg/dL (8.5-10.1); Chloride 103 mmol/L (98-107); Creatinine, Serum 1.43 mg/dL (0.70-1.30); EST Glomerular Filtration Rate 52 mL/min (>60); Est Glom Filt Rate - Afr Amer 63 mL/min (>60); Globulin 3.9 g/dL (2.2-4.2); Glucose 201 mg/dL (74-106); Magnesium 1.7 mg/dL (1.6-2.6); Potassium 4.6 mmol/L (3.5-5.1); Protein, Total 7.6 g/dL (6.4-8.2); Sodium Level 137 mmol/L (136-145)
[2019-12-04 10:32] LABS: Vitamin D,25 Hydroxy 48.2 ng/mL (29.95-100.01)
[2019-12-05 08:43] LABS: Hemoglobin A1c 5.1 % (4.2-6.3)
== END ==
PROVIDERS: PCP Family Medicine; Visit Provider Family Medicine
DX: I48.0 Paroxysmal atrial fibrillation (principal); E79.0 Hyperuricemia without signs of inflammatory arthritis and tophaceous disease; E55.9 Vitamin D deficiency, unspecified; R73.09 Other abnormal glucose
CPT/HCPCS: 36415; 80053; 82306; 83036; 83735; 84550; 85025

== ENCOUNTER → 2020-03-28 10:04 | Outpatient (CLI) | payer MEDICARE, SELFPAY ==
[2020-01-07 08:29] VITALS: BMI 33.3
[2020-03-28 12:56] LABS: Vitamin D,25 Hydroxy 55.7 ng/mL
[2020-03-28 13:02] LABS: ALB/GLOB Ratio 1.1 RATIO (0.9-2.4); AST(SGOT) 76 U/L (15-37); Alanine Aminotransfer ALT/SGPT 124 U/L (16-61); Albumin, Serum 3.8 g/dL (3.2-5.0); Alkaline Phosphatase 104 U/L (45-117); Anion Gap 5 (5-15); BUN 18 mg/dL (7-18); BUN/Creat Ratio 13.8 RATIO (10-20); Calcium,Total 10.1 mg/dL (8.5-10.1); Chloride 106 mmol/L (98-107); EST Glomerular Filtration Rate 58 mL/min (>60); Est Glom Filt Rate - Afr Amer 70 mL/min (>60); Globulin 3.5 g/dL (2.2-4.2); Glucose 114 mg/dL (74-106); Magnesium 2.1 mg/dL (1.6-2.6); Potassium 4.4 mmol/L (3.5-5.1); Protein, Total 7.3 g/dL (6.4-8.2); Sodium Level 138 mmol/L (136-145)
== END ==
PROVIDERS: PCP Family Medicine; Referring Provider Family Medicine; Visit Provider Family Medicine
DX: R94.5 Abnormal results of liver function studies (principal); I48.0 Paroxysmal atrial fibrillation; R73.09 Other abnormal glucose; E79.0 Hyperuricemia without signs of inflammatory arthritis and tophaceous disease; E55.9 Vitamin D deficiency, unspecified
CPT/HCPCS: 36415; 80053; 82306; 83036; 83735; 84550

== ENCOUNTER → 2020-04-08 07:41 | Outpatient (CLI) | payer MEDICARE, SELFPAY ==
[2020-01-07 08:29] VITALS: BMI 33.3
--- NOTE | 2020-04-08 07:44 | US_ITS ---
STUDY: ABDOMINAL ULTRASOUND - RIGHT UPPER QUADRANT REASON FOR VISIT: Male, 69 years old. History of fatty liver. TECHNIQUE: Ultrasound evaluation of the right upper quadrant was performed with real-time and static borges-scale imaging. TECHNICAL QUALITY: Adequate. COMPARISON: Comparison is made with prior CT scan) and pelvis dated April 20, 2018. FINDINGS: Liver: The liver measures 16.7 cm. There is increased echogenicity consistent with fatty infiltration. The bile ducts are within normal limits. There is hepatic color flow. The direction of portal flow is hepatopetal. There is no demonstrated mass lesion. Gallbladder: Normal distended gallbladder. The gallbladder wall measures 2.9 mm. There is a negative sonographic Hoskins''s sign. There is no pericholecystic fluid. There are no gallstones. Multiple small polyps are seen adherent to the gallbladder wall. The largest measures 5 mm x 5 mm x 4 mm. Common Bile Duct (C.B.D.): The common bile duct measures 3.6 mm. Pancreas: Normal size of the head, body of the pancreas. The tail portion is obscured due to overlying bowel gas. There is normal echogenicity of the pancreas. There is no demonstrated pancreatic mass or cyst. Right Kidney: Normal size of the right kidney. The right kidney measures 11.8 cm x 5.1 cm x 5.5 cm. Normal renal cortex. The right cortex measures 1.4 cm. There is no demonstrated renal mass or cyst. There is no right hydronephrosis. US/Liver IMPRESSION: Fatty infiltration of the liver. Gallbladder polyps. Electronically Signed: Alfredo Hale, at 9:00 EDT , Service support ,
== END ==
PROVIDERS: PCP Family Medicine; Referring Provider Family Medicine; Visit Provider Family Medicine
DX: K76.0 Fatty (change of) liver, not elsewhere classified (principal)
CPT/HCPCS: 76705

== ENCOUNTER → 2020-08-07 08:53 | Outpatient (CLI) | payer MEDICARE, SELFPAY ==
[2020-01-07 08:29] VITALS: BMI 33.3
[2020-08-07 10:19] LABS: PSA,Total - Annual Screen 1.13 ng/mL (0.00-4.00)
== END ==
PROVIDERS: PCP Family Medicine; Referring Provider Family Medicine; Visit Provider Family Medicine
DX: Z12.5 Encounter for screening for malignant neoplasm of prostate (principal)
CPT/HCPCS: 36415; 84153; G0103

== ENCOUNTER 2020-09-01 07:43 | Day surgery (SDC) | payer MEDICARE, SELFPAY ==
[2020-08-11 14:46] VITALS: BMI 30.4
--- NOTE | 2020-08-27 10:07 | EKG12_ITS ---
Test Reason : PRE OP Blood Pressure : / mmHG Vent. Rate : 052 BPM Atrial Rate : 052 BPM P-R Int : 150 ms QRS Dur : 078 ms QT Int : 420 ms P-R-T Axes : 029 025 052 degrees QTc Int : 390 ms Sinus bradycardia Otherwise normal ECG Confirmed by JOANN SHAVER, WANDA ([id number]), scientific editor IRENA WARE ([id number]) on 08/28/2020 12:54:34 PM Referred By: Jus Alfaro Confirmed By:YAKELIN DAVID MD
[2020-08-27 10:34] LABS: Hematocrit 43.6 % (40-54); Hemoglobin 14.6 g/dL (13.0-16.5); Mean Corp Hgb Conc 33.5 g/dL (32-36); Mean Corpuscular Hgb 32.2 pg (27.0-32.0); Mean Corpuscular Volume 96.2 fL (80-94); Mean Platelet Vol. 10.1 fl (6.2-12.0); Platelet Count 176 K/mm3 (150-450); RBC Distribution Width CV 13.1 % (11.6-14.6); RBC Distribution Width SD 46.6 fl (35.1-43.9); Red Blood Count 4.53 M/mm3 (4.6-6.2); White Blood Count 6.9 K/mm3 (4.4-11.0)
[2020-08-27 11:10] LABS: Anion Gap 3 (5-15); BUN 18 mg/dL (7-18); BUN/Creat Ratio 14.2 RATIO (10-20); Calcium,Total 10.2 mg/dL (8.5-10.1); Chloride 108 mmol/L (98-107); Creatinine, Serum 1.27 mg/dL (0.70-1.30); EST Glomerular Filtration Rate 59 mL/min (>60); Est Glom Filt Rate - Afr Amer 72 mL/min (>60); Glucose 114 mg/dL (74-106); Potassium 4.6 mmol/L (3.5-5.1); Sodium Level 140 mmol/L (136-145)
--- NOTE | 2020-09-01 05:54 | HP_ITS ---
Intake Vital Signs 08/11/20 Height 5 ft 8 in 08/11/20 Weight: 200 lb 08/11/20 BMI 30.4 08/11/20 BP 138/73 H 08/11/20 Blood Pressure Location Rt brachial 08/11/20 Position Sitting 08/11/20 Respiration 16 08/11/20 Pulse 52 L 08/11/20 Pulse Source Monitor 08/11/20 Temp 97.6 F L 08/11/20 Temp Source Temporal 08/11/20 Pulse Oximetry (%) 97 08/11/20 Oxygen Delivery Method room air Intake Visit Reasons: Hernia Chief Complaint: umbilical hernia and posterior scalp cyst X2 Substance Abuse Prevention Coordinator Required: No Is patient in pain?: No Allergies No Known Allergies Allergy (Verified 08/11/20 14:35) Medications Calcium/Magnesium/Zinc [Lqfukrx-Pzhgalkbx-Kggj Tablet] 1 ea PO DAILY 06/06/18 [History Confirmed 08/11/20] Cholecalciferol (VIT D3) [Vitamin D3] 1,000 unit PO DAILY 06/06/18 [History Confirmed 08/11/20] Glucosamine HCl 1,500 mg PO DAILY 06/06/18 [History Confirmed 08/11/20] Lactobacillus Combo No.11 [Probiotic] 1 ea PO DAILY 06/06/18 [History Confirmed 08/11/20] Multivitamins,Ther W-Minerals [Multivitamin With Minerals (BKC)] 1 tab PO DAILY 06/06/18 [History Confirmed 08/11/20] metoprolol tartrate 50 mg tablet 50 mg PO BID 08/10/19 [History Confirmed 08/11/20] apixaban 5 mg tablet 5 mg PO BID #60 tab 10/03/19 [Rx Confirmed 08/11/20] gabapentin 100 mg capsule 100 mg PO TID 10/03/19 [History Confirmed 08/11/20] lisinopril 10 mg tablet 10 mg PO DAILY #90 tab 10/19/19 [Rx Confirmed 08/11/20] PFSH Medical History Family hx of colon cancer (Acute) Sleep apnea (Acute) Scalp cyst (Acute) Numbness and tingling (Acute) Diverticulitis (Chronic) Arthritis (Chronic) Fatty liver (Chronic) Bilateral plantar fasciitis (Chronic) Paroxysmal atrial fibrillation (Chronic) Complex renal cyst (Chronic) GASPER (obstructive sleep apnea) (Chronic) Essential hypertension (Chronic) Screening for intestinal cancer (Acute) Syncope (Acute) Acute diverticulitis (Resolved) Surgical History Hx of colonoscopy (Acute) Aftercare following finger joint replacement surgery (Resolved) History of tonsillectomy (Resolved) Family History Mother Breast cancer Heart disease Thyroid disorder Atrial fibrillation Hypertension Father Hypertension Diabetes Cancer Lung Brother Heart disease Cancer Daughter Colon cancer Social History (Updated 08/11/20 @ 14:[address] Jus Alfaro MD) Smoking Status: Former smoker second hand exposure: No alcohol intake: current alcohol intake frequency: a few times a month substance use type: does not use caffeine: Yes Type: coffee Number of servings: 2 what type of physical activity do you participate in: none frequency: does not exercise HPI HPI HPI: VERNA VALE, is a 70 M who presents to the office today for surgical consultation regarding a only partially reducible umbilical hernia as well as progressively enlarging to left posterior scalp wens. 70-year-old gentleman. May 2018 I assisted with a colonoscopy suggesting a descending colon polyp but tissue was not remarkable. Repeat colocolonic anastomosis. On this occasion is complaining of a umbilical hernia. We have evidence it has been there for at least 2 years. Claims that he is only able to reduce it with effort and is interested in pursuing repair. He also has progressive enlargement of to left posterior occipital scalp wounds. He has had multiple previous wounds excised in the past. He thinks around September or October 2019 had a syncopal episode. Carotid duplex was unremarkable. Apparently a clear etiology not understood however the patient on a Holter monitor had A. fib identified. He was initiated on Eliquis and is on Eliquis therapy now. He denies pulmonary embolus or DVT. He states that he is not been exposed to COVID-19. He denies fever cough shortness of breath. He has had no change of bowel habit HPI HPI HPI: VERNA VALE, is a 70 M who presents to the office today for ROS General General: No weight change, appetite, fatigue, colon cancer, breast cancer or weakness HEENT HEENT: Yes eye surgery; no difficulty swallowing, eye injury, swollen glands or hoarseness Endo Endocrine: No thyroid disease, diabetes mellitus, thyroid cancer, Hair loss, heat intolerance or cold intolerance Skin Skin: No rash or changing moles Musc Musculoskeletal: No back problems, arthritis, rheumatoid arthritis, gout or joint pain Cardio Cardiovascular: Yes atrial fibrillation and high blood pressure; no murmur, pacemaker, heart disease, heart attack, heart stent, palpitations, shortness of breat with exertion or chest pain Resp Respiratory: No shortness of breath, Yes sleep apnea, No cough, No COPD, No asthma, No emphysema, No wheezing Gastro Gastrointestinal: No abdominal pain, No nausea or vomiting, No diarrhea, No constipation, No blood in stool, No acid reflux, No hemorrhoids, No ulcers, No gallbladder problem, No black,tarry stools Neuro Neurologic: No weakness Exam Const General: cooperative, comfortable, no acute distress HENMT Other: Left posterior scalp slightly more superiorly and slight more inferiorly approximately 1 to 1.5 cm diameter subdermal nodules consistent with sebaceous cyst. Eyes General: appearance normal, both eyes and all related structures Neck Neck: normal visual inspection Resp Effort & Inspection: normal respiratory effort Auscultation: clear to auscultation bilaterally Cardio Rate: regular rate Rhythm: regular rhythm Heart Sounds: no murmurs GI Palpation: soft, no hepatosplenomegaly Auscultation: normal bowel sounds Other: Umbilical hernia noted. Very small fascial defect. I am not able to reduce the tissue. Slightly tender. No erythema. Abdomen is otherwise soft and nontender Musc Cervical Spine: normal cervical lordosis Neuro Cognition: normal cognition Extrem General: no calf tenderness Psych Affect: normal affect Assessment & Plan Problems 1. Umbilical hernia, incarcerated K42.0 2. Scalp cyst L72.9 Plan Umbilical hernia, I am not able to reduce it, I recommend to him an umbilical herniorrhaphy. This should be able to be accomplished through a small curvilinear incision and direct approach. Anticipate utilizing mesh. I discussed with him technique, benefit, risk of alternatives. He is aware that we will need to confer with Dr. Andrea Cox. He will need to be off his Eliquis preoperatively. The patient is aware of potential recurrence. He is aware of COVID-19 and that the [facility] is currently reporting a low local incidence. The patient will need to be off his anticoagulation. I have therefore offered him a simultaneous excision of the left posterior scalp sebaceous cyst x2. He has had previous cyst excised so he is well aware of the technique and procedure. He would like to have it done simultaneously if possible. He will require a general anesthetic for the umbilical hernia. He has had an opportunity to ask and have questions answered. I appreciate the opportunity of assisting with his surgical care. We will schedule and proceed at his discretion. Copy: Dr Leonardo Kidd and Dr. Andrea Alfaro M.D., F.A.C.S. Coding Level of Care Code Off vis,new,level 3 Diagnoses Umbilical hernia, incarcerated K42.0 Scalp cyst L72.9
[2020-09-01 08:19] VITALS: BP 135/80; PULSE 58; RESP 16; TEMP 36.4; O2SAT 100; BMI 31.4
[2020-09-01] MEDS: Lactated Ringers 1,000 ML 100 ML IV (08:24)
--- NOTE | 2020-09-01 08:33 | PCM.HP.BLA ---
Problem List (1) Umbilical hernia, incarcerated Status: Acute (2) Scalp cyst Status: Acute Comment: Right posterior scalp X2 History and Physical Date of Admission: 09/01/20 Intake Visit Reasons: Hernia Chief Complaint: umbilical hernia and posterior scalp cyst X2 Drone Operator Required: No Is patient in pain?: No Allergies No Known Allergies Allergy (Verified 08/11/20 14:35) Medications Calcium/Magnesium/Zinc [Sqqdgsv-Wjkzqlibm-Mfpy Tablet] 1 ea PO DAILY 06/06/18 [History Confirmed 08/11/20] Cholecalciferol (VIT D3) [Vitamin D3] 1,000 unit PO DAILY 06/06/18 [History Confirmed 08/11/20] Glucosamine HCl 1,500 mg PO DAILY 06/06/18 [History Confirmed 08/11/20] Lactobacillus Combo No.11 [Probiotic] 1 ea PO DAILY 06/06/18 [History Confirmed 08/11/20] Multivitamins,Ther W-Minerals [Multivitamin With Minerals (BKC)] 1 tab PO DAILY 06/06/18 [History Confirmed 08/11/20] metoprolol tartrate 50 mg tablet 50 mg PO BID 08/10/19 [History Confirmed 08/11/20] apixaban 5 mg tablet 5 mg PO BID #60 tab 10/03/19 [Rx Confirmed 08/11/20] gabapentin 100 mg capsule 100 mg PO TID 10/03/19 [History Confirmed 08/11/20] lisinopril 10 mg tablet 10 mg PO DAILY #90 tab 10/19/19 [Rx Confirmed 08/11/20] PFSH Medical History Family hx of colon cancer (Acute) Sleep apnea (Acute) Scalp cyst (Acute) Numbness and tingling (Acute) Diverticulitis (Chronic) Arthritis (Chronic) Fatty liver (Chronic) Bilateral plantar fasciitis (Chronic) Paroxysmal atrial fibrillation (Chronic) Complex renal cyst (Chronic) GASPER (obstructive sleep apnea) (Chronic) Essential hypertension (Chronic) Screening for intestinal cancer (Acute) Syncope (Acute) Acute diverticulitis (Resolved) Surgical History Hx of colonoscopy (Acute) Aftercare following finger joint replacement surgery (Resolved) History of tonsillectomy (Resolved) Family History Mother Breast cancer Heart disease Thyroid disorder Atrial fibrillation Hypertension Father Hypertension Diabetes Cancer Lung Brother Heart disease Cancer Daughter Colon cancer Social History (Updated 08/11/20 @ 14:[address] Jus Alfaro MD) Smoking Status: Former smoker second hand exposure: No alcohol intake: current alcohol intake frequency: a few times a month substance use type: does not use caffeine: Yes Type: coffee Number of servings: 2 what type of physical activity do you participate in: none frequency: does not exercise HPI HPI HPI: VERNA VALE, is a 70 M who presents to the office today for surgical consultation regarding a only partially reducible umbilical hernia as well as progressively enlarging to left posterior scalp wens. 70-year-old gentleman. May 2018 I assisted with a colonoscopy suggesting a descending colon polyp but tissue was not remarkable. Repeat colocolonic anastomosis. On this occasion is complaining of a umbilical hernia. We have evidence it has been there for at least 2 years. Claims that he is only able to reduce it with effort and is interested in pursuing repair. He also has progressive enlargement of to left posterior occipital scalp wounds. He has had multiple previous wounds excised in the past. He thinks around September or October 2019 had a syncopal episode. Carotid duplex was unremarkable. Apparently a clear etiology not understood however the patient on a Holter monitor had A. fib identified. He was initiated on Eliquis and is on Eliquis therapy now. He denies pulmonary embolus or DVT. He states that he is not been exposed to COVID-19. He denies fever cough shortness of breath. He has had no change of bowel habit HPI HPI HPI: VERNA VALE, is a 70 M who presents to the office today for ROS General General: No weight change, appetite, fatigue, colon cancer, breast cancer or weakness HEENT HEENT: Yes eye surgery; no difficulty swallowing, eye injury, swollen glands or hoarseness Endo Endocrine: No thyroid disease, diabetes mellitus, thyroid cancer, Hair loss, heat intolerance or cold intolerance Skin Skin: No rash or changing moles Musc Musculoskeletal: No back problems, arthritis, rheumatoid arthritis, gout or joint pain Cardio Cardiovascular: Yes atrial fibrillation and high blood pressure; no murmur, pacemaker, heart disease, heart attack, heart stent, palpitations, shortness of breat with exertion or chest pain Resp Respiratory: No shortness of breath, Yes sleep apnea, No cough, No COPD, No asthma, No emphysema, No wheezing Gastro Gastrointestinal: No abdominal pain, No nausea or vomiting, No diarrhea, No constipation, No blood in stool, No acid reflux, No hemorrhoids, No ulcers, No gallbladder problem, No black,tarry stools Neuro Neurologic: No weakness Exam Const General: cooperative, comfortable, no acute distress HENMT Other: Left posterior scalp slightly more superiorly and slight more inferiorly approximately 1 to 1.5 cm diameter subdermal nodules consistent with sebaceous cyst. Eyes General: appearance normal, both eyes and all related structures Neck Neck: normal visual inspection Resp Effort & Inspection: normal respiratory effort Auscultation: clear to auscultation bilaterally Cardio Rate: regular rate Rhythm: regular rhythm Heart Sounds: no murmurs GI Palpation: soft, no hepatosplenomegaly Auscultation: normal bowel sounds Other: Umbilical hernia noted. Very small fascial defect. I am not able to reduce the tissue. Slightly tender. No erythema. Abdomen is otherwise soft and nontender Musc Cervical Spine: normal cervical lordosis Neuro Cognition: normal cognition Extrem General: no calf tenderness Psych Affect: normal affect Assessment & Plan Problems 1. Umbilical hernia, incarcerated K42.0 2. Scalp cyst L72.9 Plan Umbilical hernia, I am not able to reduce it, I recommend to him an umbilical herniorrhaphy. This should be able to be accomplished through a small curvilinear incision and direct approach. Anticipate utilizing mesh. I discussed with him technique, benefit, risk of alternatives. He is aware that we will need to confer with Dr. Andrea Cox. He will need to be off his Eliquis preoperatively. The patient is aware of potential recurrence. He is aware of COVID-19 and that the [facility] is currently reporting a low local incidence. The patient will need to be off his anticoagulation. I have therefore offered him a simultaneous excision of the left posterior scalp sebaceous cyst x2. He has had previous cyst excised so he is well aware of the technique and procedure. He would like to have it done simultaneously if possible. He will require a general anesthetic for the umbilical hernia. He has had an opportunity to ask and have questions answered. I appreciate the opportunity of assisting with his surgical care. We will schedule and proceed at his discretion. Copy: Dr Leonardo Kidd and Dr. Andrea Alfaro M.D., F.A.C.S. Coding Level of Care Code Off vis,new,level 3 Diagnoses Umbilical hernia, incarcerated K42.0 Scalp cyst L72.9 I have re-examined the patient. There are no clinical changes since date of exam. Procedure Criteria Procedure Type: Elective COVID Risk Discussion: The surgeon/proceduralist and patient have discussed in detail the risk of exposure to and/or potential harm posed by the COVID-19 virus with having a surgery/procedure at this time versus the risk of delaying the surgery/procedure. It is not possible to know either the risk of delaying the surgery or procedure or chance of getting an infection with perfect accuracy, but a joint decision was made between the patient and the surgeon/proceduralist to proceed at this time with the scheduled surgery/procedure as indicated on the consent form.
[2020-09-01] MEDS: Cefazolin 2 GM in 0.9% Normal Saline 100 ML IV (09:05)
--- NOTE | 2020-09-01 09:08 | DCINST_ITS ---
Discharge Diet: Light diet - advance as tolerated - if you have questions about your diet instructions, please talk to you doctor. Discharge Activity: May Not Drive - for 3-5 days or while taking narcotic pain medicine. May shower in (days): 1 Lifting Restrictions: 10 pounds Call your doctor if your incision/area has: Continuous Slow Oozing, Sudden Increased Bleeding, Increased Pain/ Swelling, Increased Redness, Foul Smelling Discharge Call your doctor if you observe: Fever of 101 or Higher Suture Line Care: Avoid Pulling/Pushing, Avoid Pinching/Bending Additional Dressing/Incision Instructions:: Change or remove dressing in 4 days. Leave steri-strips in place for 1 week. Allergies/Adverse Reactions: Allergies No Known Allergies Allergy (Verified 09/01/20 08:19) Medications to take at Discharge Calcium/Magnesium/Zinc [Qrdngqj-Ahmicemkx-Qmih Tablet] 1 ea PO DAILY 06/06/18 Cholecalciferol (VIT D3) [Vitamin D3] 1,000 unit PO DAILY 06/06/18 Glucosamine HCl 1,500 mg PO DAILY 06/06/18 Lactobacillus Combo No.11 [Probiotic] 1 ea PO DAILY 06/06/18 Multivitamins,Ther W-Minerals [Multivitamin With Minerals (BKC)] 1 tab PO DAILY 06/06/18 metoprolol tartrate 50 mg tablet 50 mg PO BID 08/10/19 apixaban 5 mg tablet 5 mg PO BID #60 tab 10/03/19 gabapentin 100 mg capsule 100 mg PO TID 10/03/19 lisinopril 10 mg tablet 10 mg PO DAILY #90 tab 10/19/19 Primary Care Physician: Leonardo Kidd MD [Primary Care Provider] - Test Results: Test results from this visit will be discussed in further detail at your follow- up appointment, if applicable. Please Follow Up With: Jus Alfaro MD - [phone] When: Call to make an appointment to be seen in about 7 days.
--- NOTE | 2020-09-01 09:50 | HERN_PTH ---
PATIENT: VERNA VALE LOC: [facility] [place] U#:[id number] AGE/SX: 70/M ROOM: RE09/01/[address]: Dr. Jus Alfaro MD : 1950 BED: DIS: 09/01/2020 SPEC #: [id number] RECD: 09/01/20 11:13 STATUS: MONE CASSANDRA #: [id number] NADJA: 09/01/20 09:[address]: Jus Alfaro DEPT: SURGICAL PATHOLOGY RECD BY: Johnnie Merida ENTERED: 09/01/20 12:01 SP TYPE: Hernia OTHR DR: Dr. Leonardo Kidd MD Tissues: A - HERNIA B - CYST Procedures: Surgery Specimen Level II Surgery Specimen Level III HEADER OPERATION: Umbilical hernia repair with mesh, excision scalp x2 PRE-OP DIAGNOSIS: Umbilical hernia; scalp cyst TISSUE SUBMITTED: A - Hernia sac and contents, B - Scalp cysts x2 MICROSCOPIC DIAGNOSIS A. Hernia sac and contents: Mesothelial-lined fibroadipose and fibroconnective tissue consistent with hernia sac and with chronic inflammation and reactive changes. B. Scalp cyst x2: Trichilemmal cysts with focal calcifications x2. MELE:gregory 09/02/20 MICROSCOPIC DESCRIPTION Slides are reviewed. GROSS DESCRIPTION A - Received in fixative is one container labeled with the patient's name and designated hernia sac and contents. The specimen consists of two pieces of yellow adipose tissue that in aggregate measure 6 x 4.5 x 1.2 cm. Sections do not reveal any mass lesion. Animal Care Technician sections are submitted in one cassette. B - Received in fixative is one container labeled with the patient's name and designated scalp cyst x2. The specimen consists of two nodular pieces of dense tissue measuring 1.5 x 1.5 x 1 cm and 1.2 x 1.2 x 0.5 cm. The smaller piece is bisected and larger piece is serially sectioned. Both nodules contain yellowish-mcnamara sebaceous material. Animal Care Technician sections from both pieces are submitted in one cassette. / MELE:gregory 09/01/20 TC:5 CPT: 85230, 66953
[2020-09-01] MEDS: Bupivacaine Mpf 0.5% 30 ML VIAL (10:00)
[2020-09-01] MEDS: Mupirocin Ointment 22gm Tube 1 APPLIC (10:11)
--- NOTE | 2020-09-01 10:16 | PCM.OPRPT ---
Problem List (1) Umbilical hernia, incarcerated Status: Acute (2) Scalp cyst Status: Acute Comment: Right posterior scalp X2 Report of Operation Date of Procedure: 09/01/20 Pre-Operative Diagnosis: Incarcerated umbilical hernia. Left posterior scalp sebacous cyts x2 Post-Operative Diagnosis: Same Surgery/Procedure Performed:: Incarcerated umbilical herniorrhaphy with 4.[address] mesh. Reference #[id number]. Lot number [id number]. Expiry date 06/20/2021. Excision left posterior 1 cm diameter scalp wens x2 Description of Surgical Findings:: Informed consent was obtained. 70-year-old gentleman was taken to the operating place upon the table underwent general endotracheal intubation esthesia. Ancef 2 g were given intravenously. The abdomen sterilely prepped and draped. A curvilinear incision was made in the inferior portion of the umbilicus. There was omentum incarcerated with the umbilical hernia sac. The sac was dissected free and a portion of the omentum was resected in the incarcerated sac. Preperitoneal tissue was freed to assure that there was no bowel involvement. A 4.3 cm Ventralex mesh was inserted and the tails were secured with interrupted 0 Nurolon. The fascia was approximated transversely with simple sutures of 0 Nurolon. Skin edges were approximate interrupted 4 Monocryl subdermal stitches. Steri-Strips cottonball Telfa OpSite dressing applied. The fascia had been anesthetized with 0.5% Marcaine. Total 10 cc was used. He was then placed in a right lateral decubitus position. The posterior scalp on the left was sterilely prepped and draped. 0.5% Marcaine was used as a local anesthetic. A total of 10 cc was used. Transverse incisions were performed overlying the cystic lesions. Sharp and blunt dissection was used to excise each lesion approximate 1 cm diameter. The skin edges were approximated with simple sutures of 3-0 nylon. Gauze and bouffant cap applied. Sponge and instrument and needle counts were reported the surgeon to be correct. Specimens hernia sac and contents and sebaceous cyst x2. Drains none. Blood loss minimal. The patient was taken to recovery area in satisfactory edition without apparent complication Jus Alfaro M.D., F.A.C.S. Type of Anesthesia:: General Anesthesiologist: Etienne Fisher
[2020-09-01 10:26] VITALS: BP 106/60; BP 135/80; PULSE 62; RESP 16; TEMP 36.1; O2SAT 98
[2020-09-01 10:30] VITALS: BP 104/61; BP 135/80; PULSE 61; RESP 16; O2SAT 96
[2020-09-01 10:43] VITALS: BP 104/64; BP 135/80; PULSE 53; RESP 16; O2SAT 98
[2020-09-01 10:52] VITALS: BP 107/59; BP 135/80; PULSE 51; RESP 16; TEMP 36.5; O2SAT 98
[2020-09-01 12:07] VITALS: BP 118/85; BP 135/80; PULSE 86; RESP 18; TEMP 36.1; O2SAT 99
== END 2020-09-01 12:17 | disposition home or self-care (01) ==
LOC: SDC 07:44 → AC 07:44
PROVIDERS: PCP Family Medicine; Referring Provider Surgery; Visit Provider Surgery
PROC: (CPT 11421; principal; 2020-09-01 09:35)
DX: K42.0 Umbilical hernia with obstruction, without gangrene (principal); L72.3 Sebaceous cyst; L72.12 Trichodermal cyst; I10 Essential (primary) hypertension; M19.90 Unspecified osteoarthritis, unspecified site; I48.0 Paroxysmal atrial fibrillation; G47.33 Obstructive sleep apnea (adult) (pediatric); R20.0 Anesthesia of skin; R20.2 Paresthesia of skin; Z79.01 Long term (current) use of anticoagulants; Z79.899 Other long term (current) drug therapy; Z87.891 Personal history of nicotine dependence; Z20.828 Contact with and (suspected) exposure to other viral communicable diseases
CPT/HCPCS: 00840; 11421 ×2; 49587; 36415; 80048; 85027; 87426; 88302; 88304; 93005; C9803; J7120; C1781; J2405

== ENCOUNTER → 2020-11-04 09:44 | Outpatient (CLI) | payer MEDICARE, SELFPAY ==
[2020-09-22 08:51] VITALS: BMI 31.8
[2020-11-04 12:13] LABS: Absolute Lymphocyte Count 2.31 X10^3/uL (0.83-4.51); Absolute Neutrophil Count 3.3 X10^3/uL (2.0-7.7); Basophil# 0.03 X10^3/uL; Basophil% 0.5 % (0-1); Eosinophil# 0.18 X10^3/uL; Eosinophils% 2.8 % (0-5); Hematocrit 43.3 % (40-54); Hemoglobin 14.5 g/dL (13.0-16.5); Lymphocyte # 2.31 X10^3/ul (4.0); Lymphocyte % 35.9 % (19-41); Mean Corp Hgb Conc 33.5 g/dL (32-36); Mean Corpuscular Hgb 32.1 pg (27.0-32.0); Mean Corpuscular Volume 95.8 fL (80-94); Mean Platelet Vol. 10.3 fl (6.2-12.0); Monocyte# 0.59 X10^3/uL; Monocyte% 9.2 % (0-10); NRBC Flagged by Analyzer 0 % (0-5); Neutrophil # 3.32 X10^3/uL (2.7-7.7); Neutrophil % 51.4 % (47-70); Platelet Count 169 K/mm3 (150-450); RBC Distribution Width CV 12.8 % (11.6-14.6); RBC Distribution Width SD 45.3 fl (35.1-43.9); Red Blood Count 4.52 M/mm3 (4.6-6.2); White Blood Count 6.4 K/mm3 (4.4-11.0)
[2020-11-04 12:33] LABS: PTHIN 81.3 pg/mL (18.4-80.1)
[2020-11-04 12:34] LABS: ALB/GLOB Ratio 1.1 RATIO (0.9-2.4); AST(SGOT) 27 U/L (15-37); Alanine Aminotransfer ALT/SGPT 55 U/L (16-61); Albumin, Serum 3.9 g/dL (3.2-5.0); Alkaline Phosphatase 93 U/L (45-117); Anion Gap 4 (5-15); BUN 20 mg/dL (7-18); BUN/Creat Ratio 15.5 RATIO (10-20); Calcium,Total 9.3 mg/dL (8.5-10.1); Chloride 104 mmol/L (98-107); Creatinine, Serum 1.29 mg/dL (0.70-1.30); EST Glomerular Filtration Rate 58 mL/min (>60); Est Glom Filt Rate - Afr Amer 71 mL/min (>60); Globulin 3.6 g/dL (2.2-4.2); Glucose 112 mg/dL (74-106); Phosphorus 2.3 mg/dL (2.5-4.9); Potassium 5.1 mmol/L (3.5-5.1); Protein, Total 7.5 g/dL (6.4-8.2); Sodium Level 136 mmol/L (136-145); Uric Acid 9.3 mg/dL (3.5-7.2)
[2020-11-04 12:36] LABS: Vitamin D,25 Hydroxy 47.3 ng/mL
[2020-11-04 12:40] LABS: Protein, Urine (Random) 13.5 mg/dL (<11.9); Protein:Creat Ratio 129 mg/g CRE (0-200)
[2020-11-06 11:07] LABS: Hemoglobin A1c 4.9 % (3.8-5.6)
== END ==
PROVIDERS: PCP Family Medicine; Referring Provider Family Medicine; Visit Provider Family Medicine
DX: R73.09 Other abnormal glucose (principal); I48.0 Paroxysmal atrial fibrillation; N18.30 Chronic kidney disease, stage 3 unspecified; E79.0 Hyperuricemia without signs of inflammatory arthritis and tophaceous disease; E55.9 Vitamin D deficiency, unspecified
CPT/HCPCS: 36415; 80053; 82306; 82570; 83036; 83735; 83970; 84100; 84156; 84550; 85025

== ENCOUNTER → 2020-12-02 | Outpatient (CLI) | payer MEDICARE, SELFPAY ==
[2020-09-22 08:51] VITALS: BMI 31.8
[2020-12-02 18:39] LABS: Body Fluid QC Type(s) BF1Q; CRYSTALS, BODY FLUID See PATH REV; Source- Body Fluid SYNOVIAL
[2020-12-02 19:33] LABS: M R Staph aureus DNA By PCR Negative (Negative); Probe Check PASS; Specimen Processing Control PASS; Staph aureus DNA By PCR NEGATIVE (Negative)
[2020-12-03 13:29] LABS: Pathologist Review Reviewed
== END | disposition home or self-care (01) ==
PROVIDERS: Visit Provider Podiatrist
DX: M10.9 Gout, unspecified (principal)
CPT/HCPCS: 87070; 87075; 87205; 87640; 89060

== ENCOUNTER 2021-02-11 16:02 | Emergency (ER) | payer MEDICARE, SELFPAY ==
[2020-09-22 08:51] VITALS: BMI 31.8
[2021-02-11 16:03] VITALS: BP 145/66; PULSE 57; RESP 14; TEMP 36.1; O2SAT 97; BMI 30.2
--- NOTE | 2021-02-11 16:55 | RAD_ITS ---
INDICATION: injury EXAMINATION/TECHNIQUE: X-RAY - LEFT XR Hand Min 3 Views COMPARISON: None. FINDINGS: Healed chronic fracture deformity of the first proximal phalanx with plate and screw construct. No blastic or lytic lesions. Moderate degenerative changes of the radiocarpal joints, first carpometacarpal joint, and most interphalangeal joints. The soft tissues are unremarkable. RAD/Hand Min 3 Views IMPRESSION: Healed chronic fracture deformity of the first proximal phalanx with plate and screw construct. 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 Electronically Signed: Roe Fleming MD at 17:54 EDT Tel , Service support ,
--- NOTE | 2021-02-11 17:59 | ED.DCSUM_ITS ---
History of Present Illness Chief Complaint: Laceration Narrative: Patient presenting for evaluation secondary to a laceration to the left hand. Patient is right-hand dominant. He was moving something in his garage and smashed his left thumb. He suffered a laceration. Patient has had a major injury to that thumb in the past multiple years ago when he was in the [place]. He chronically has some issues with mobility with it. Patient states that his tetanus status is within the last 5 years. Bleeding was controlled with pressure. Pain is mild. Review of systems otherwise negative. Past Medical History - Allergies and Home Meds Allergies/Adverse Reactions: Allergies No Known Allergies Allergy (Verified 02/11/21 16:04) Primary Care Physician: Leonardo Kidd MD [Primary Care Provider] - Prior records reviewed: Yes Past Medical History: - - Hypertension and A. fib Smoking Status: Never smoker Alcohol: None Drugs: None - Family History Paternal Family History: Family History (Last Reviewed 09/22/20 @ 08:53 by Shira Charles) Mother Breast cancer Heart disease Thyroid disorder Atrial fibrillation Hypertension Father Hypertension Diabetes Cancer Brother Heart disease Cancer Daughter Colon cancer Family History: Reports: Cancer, - Review of Systems All systems negative except as indicated General: Denies: Chills, Fever, Sweats Eyes: Denies: Visual changes - bilaterally, Diplopia ENT: Denies: Rhinorrhea, Sore throat Cardiovascular: Denies: Chest pain, Palpitations Respiratory: Denies: Dyspnea, Cough, Dyspnea on exertion Gastrointestinal: Denies: Abdominal pain, Nausea, Vomiting, Diarrhea, Melena, Hematochezia Genitourinary: Denies: Dysuria, Hematuria, Frequency Musculoskeletal: Denies: Back pain, Extremity Pain Skin: Reports: Wounds Neurological: Denies: Headache, Weakness, Numbness Hematologic: Reports: Easy bruising, Easy bleeding Physical Exam Vital Signs/Narrative: Vital Signs Temp Pulse Resp BP Pulse Ox 02/11/21 16:03 97.0 F L 57 L 14 145/66 H 97 Inital Vital Signs reviewed: Yes Left Finger: - - Left thumb exam shows a laceration going across the pad of the patient's thumb measuring about 5 cm. Patient has some limited flexion and extension of the thumb which she states is at its baseline. Normal two-point di scrimination. Thumbnail is absent which is also at the patient's baseline General: Well nourished, Well developed Head: Normocephalic Eyes: EOMI Cardiovascular: Regular rate Respiratory: No distress Skin: Normal color, No rash Neurological: Alert, Oriented x3 Diagnostic/Tx/Re-eval Clinical Impression(s) from Imaging Studies Hand X-Ray 02/11/21 16:55 IMPRESSION: Healed chronic fracture deformity of the first proximal phalanx with plate and screw construct. 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 Electronically Signed: Roe Fleming MD at 17:54 EDT Tel , Service support , - Medical Decision Making Patient presented secondary to a hand laceration. It was repaired as noted in the procedure note. 3 view x-ray of the hand by my personal interpretation shows no acute fracture of this thumb. Patient be placed in a thumb spica to limit his mobility until he has healing. He will follow-up with primary care. Procedures Procedure(s): Laceration was anesthetized with a total of 5 cc of 2% lidocaine. There is good anesthesia obtained. Wound was placed under direct light, it was explored through full range of motion there is no evidence of violation of deep structures, no foreign material within the wound. It was scrubbed with Shur- Clens, and was irrigated with 500 cc of saline. No foreign material was expressed. Wound was then addressed for closure. 4-0 nylon suture was utilized. In a running fashion a total of #10 sutures were placed with good approximation. Patient held pressure for hemostasis he tolerated this well. ED Disposition - Plan for ED Patient: Disposition: Home or Assisted Living Diagnosis: Laceration of left thumb Instructions: ED Laceration, Hand: All Closures Referrals: Leonardo Kidd MD [Primary Care Provider] - 7 Days for suture removal
[2021-02-11 18:45] VITALS: BP 132/74; PULSE 58; RESP 16; O2SAT 99
== END 2021-02-11 18:46 | disposition home or self-care (01) ==
PROVIDERS: Emergency Provider Emergency Medicine; PCP Family Medicine
DX: S61.012A Laceration without foreign body of left thumb without damage to nail, initial encounter (principal); W23.0XXA Caught, crushed, jammed, or pinched between moving objects, initial encounter; Y93.9 Activity, unspecified; Y92.9 Unspecified place or not applicable; I10 Essential (primary) hypertension; I48.91 Unspecified atrial fibrillation; Z79.899 Other long term (current) drug therapy; Z79.01 Long term (current) use of anticoagulants
CPT/HCPCS: 12002; 73130; 99283

== ENCOUNTER → 2021-02-18 11:05 | Outpatient (CLI) | payer MEDICARE, SELFPAY ==
[2021-02-11 16:03] VITALS: BMI 30.2
[2021-02-18 12:09] LABS: Absolute Lymphocyte Count 2.97 X10^3/uL (0.83-4.51); Absolute Neutrophil Count 3.9 X10^3/uL (2.0-7.7); Basophil# 0.05 X10^3/uL; Basophil% 0.6 % (0-1); Eosinophil# 0.17 X10^3/uL; Eosinophils% 2.1 % (0-5); Hematocrit 43.1 % (40-54); Hemoglobin 14.6 g/dL (13.0-16.5); Lymphocyte # 2.97 X10^3/ul (0.83-4.51); Lymphocyte % 36.5 % (19-41); Mean Corp Hgb Conc 33.9 g/dL (32-36); Mean Corpuscular Hgb 33.2 pg (27.0-32.0); Mean Platelet Vol. 10.5 fl (6.2-12.0); Monocyte# 1.05 X10^3/uL; Monocyte% 12.9 % (0-10); NRBC Flagged by Analyzer 0 % (0-5); Neutrophil # 3.86 X10^3/uL (2.7-7.7); Neutrophil % 47.5 % (47-70); Platelet Count 196 K/mm3 (150-450); RBC Distribution Width CV 12.6 % (11.6-14.6); RBC Distribution Width SD 45.5 fl (35.1-43.9); White Blood Count 8.1 K/mm3 (4.4-11.0)
[2021-02-18 12:46] LABS: PTHIN 33.3 pg/mL (18.4-80.1)
[2021-02-18 12:48] LABS: Vitamin D,25 Hydroxy 65.5 ng/mL
[2021-02-18 12:56] LABS: ALB/GLOB Ratio 1.1 RATIO (0.9-2.4); AST(SGOT) 57 U/L (15-37); Alanine Aminotransfer ALT/SGPT 100 U/L (16-61); Albumin, Serum 3.9 g/dL (3.2-5.0); Alkaline Phosphatase 86 U/L (45-117); Anion Gap 6 (5-15); BUN 19 mg/dL (7-18); BUN/Creat Ratio 13.6 RATIO (10-20); Chloride 103 mmol/L (98-107); EST Glomerular Filtration Rate 53 mL/min (>60); Est Glom Filt Rate - Afr Amer 64 mL/min (>60); Globulin 3.7 g/dL (2.2-4.2); Glucose 107 mg/dL (74-106); Magnesium 2.1 mg/dL (1.6-2.6); Potassium 4.2 mmol/L (3.5-5.1); Protein, Total 7.6 g/dL (6.4-8.2); Sodium Level 137 mmol/L (136-145); Thyroid Stim Hormone (TSH) 0.88 uIU/mL (0.358-3.74); Uric Acid 10.4 mg/dL (3.5-7.2)
[2021-02-19 09:52] LABS: Hemoglobin A1c 4.9 % (3.8-5.6)
== END ==
PROVIDERS: PCP Family Medicine; Referring Provider Family Medicine; Visit Provider Family Medicine
DX: R73.09 Other abnormal glucose (principal); I12.9 Hypertensive chronic kidney disease with stage 1 through stage 4 chronic kidney disease, or unspecified chronic kidney disease; N18.30 Chronic kidney disease, stage 3 unspecified; I48.0 Paroxysmal atrial fibrillation; E79.0 Hyperuricemia without signs of inflammatory arthritis and tophaceous disease; E55.9 Vitamin D deficiency, unspecified
CPT/HCPCS: 36415; 80053; 82306; 83036; 83735; 83970; 84443; 84550; 85025

== ENCOUNTER → 2021-04-08 09:49 | Outpatient (CLI) | payer MEDICARE, SELFPAY ==
[2021-03-17 14:16] VITALS: BMI 30.2
[2021-04-08 12:50] LABS: Uric Acid 6.7 mg/dL (3.5-7.2)
[2021-04-08 18:57] LABS: CRYSTALS, BODY FLUID MONOSODIUM URATE; Source- Body Fluid SYNOVIAL
[2021-04-09 13:09] LABS: Pathologist Review Reviewed
== END ==
PROVIDERS: PCP Family Medicine; Referring Provider Family Medicine; Visit Provider Family Medicine
DX: M10.9 Gout, unspecified (principal)
CPT/HCPCS: 36415; 84550; 87070; 87075; 87205; 89060

== ENCOUNTER → 2021-05-11 14:25 | Outpatient (CLI) | payer MEDICARE, SELFPAY ==
[2021-03-17 14:16] VITALS: BMI 30.2
[2021-05-11 17:49] LABS: Absolute Lymphocyte Count 2.47 X10^3/uL (0.83-4.51); Absolute Neutrophil Count 7.1 X10^3/uL (2.0-7.7); Basophil# 0.04 X10^3/uL; Basophil% 0.4 % (0-1); Eosinophil# 0.16 X10^3/uL; Eosinophils% 1.5 % (0-5); Hemoglobin 14.3 g/dL (13.0-16.5); Lymphocyte # 2.47 X10^3/ul (0.83-4.51); Lymphocyte % 22.9 % (19-41); Mean Corp Hgb Conc 33.3 g/dL (32-36); Mean Corpuscular Hgb 32.6 pg (27.0-32.0); Mean Corpuscular Volume 98.2 fL (80-94); Mean Platelet Vol. 10.8 fl (6.2-12.0); Monocyte# 0.99 X10^3/uL; Monocyte% 9.2 % (0-10); NRBC Flagged by Analyzer 0 % (0-5); Neutrophil # 7.08 X10^3/uL (2.7-7.7); Neutrophil % 65.6 % (47-70); Platelet Count 206 K/mm3 (150-450); RBC Distribution Width CV 12.5 % (11.6-14.6); RBC Distribution Width SD 45.1 fl (35.1-43.9); Red Blood Count 4.38 M/mm3 (4.6-6.2); White Blood Count 10.8 K/mm3 (4.4-11.0)
[2021-05-11 18:23] LABS: AST(SGOT) 28 U/L (15-37); Alanine Aminotransfer ALT/SGPT 58 U/L (16-61); Alkaline Phosphatase 103 U/L (45-117); Bilirubin, Direct 0.14 mg/dL (0.00-0.30); Globulin 3.8 g/dL (2.2-4.2); Protein, Total 7.8 g/dL (6.4-8.2)
== END ==
PROVIDERS: PCP Family Medicine; Visit Provider Nurse Practitioner Family
DX: K57.92 Diverticulitis of intestine, part unspecified, without perforation or abscess without bleeding (principal)
CPT/HCPCS: 36415; 80076; 85025

== ENCOUNTER → 2021-05-11 15:18 | Outpatient (CLI) | payer MEDICARE, SELFPAY ==
[2021-03-17 14:16] VITALS: BMI 30.2
--- NOTE | 2021-05-11 15:20 | CT_ITS ---
INDICATION: DIVERTICULITIS EXAMINATION: CT Abdomen And Pelvis W/ Contrast Injection TECHNIQUE: Helically acquired images were obtained of the abdomen and pelvis after IV contrast. A radiation dose optimization technique was used for this scan. IV Contrast dosage and agent: Oral and amp; IV Gastrografin and amp; 100mL Isovue-370 Oral contrast: None. COMPARISON: 04/20/2018. FINDINGS: Visualized lung bases: Unremarkable Liver: Unremarkable Gallbladder: Unremarkable Spleen: Unremarkable Pancreas: Unremarkable Adrenal Glands: Unremarkable Kidneys: Scattered too small to characterize subcentimeter hypodensities bilaterally. Vasculature: Unremarkable GI Tract: Scattered colonic diverticula. Short segment wall thickening of the distal descending colon and proximal sigmoid colon with surrounding mesenteric fat stranding. No focal fluid collection or free air. Lymphadenopathy: None Peritoneum: No ascites. Bladder: Unremarkable Reproductive organs: The prostate is mildly enlarged. Bones/Soft tissues: No suspicious osseous or soft tissue lesions CT/Abdomen/Pelvis WITH Contrast IMPRESSION: Acute sigmoid and descending colon diverticulitis. No focal fluid collection or free air. Electronically Signed: Roe Flmeing MD at 17:58 EDT Tel , Service support ,
[2021-05-11 17:36] LABS: CREATININE FINGERSTICK 1.1 mg/dL (0.70-1.30); EGFR FINGERSTICK > 60.0000 mL/min (>60)
== END ==
PROVIDERS: PCP Family Medicine; Referring Provider Nurse Practitioner Family; Visit Provider Nurse Practitioner Family
DX: K57.32 Diverticulitis of large intestine without perforation or abscess without bleeding (principal)
CPT/HCPCS: 36415; 74177; 80076; 85025; Q9967

== ENCOUNTER → 2021-08-05 08:14 | Outpatient (CLI) | payer MEDICARE, SELFPAY ==
[2021-08-05 08:20] LABS: Bacteria 0 SEEN /hpf (None Seen); Mucous, Urine 0 SEEN /hpf (<or=2+); Red Blood Cells-Urine 0 SEEN /hpf (0-5); Squamous Epithelial Cells - UA 0 SEEN /hpf (0-5); White Blood Cells 0 SEEN /hpf (0-5)
[2021-08-05 10:11] LABS: Absolute Lymphocyte Count 1.97 X10^3/uL (0.83-4.51); Absolute Neutrophil Count 5.4 X10^3/uL (2.0-7.7); Basophil# 0.05 X10^3/uL; Basophil% 0.6 % (0-1); Eosinophils% 2.3 % (0-5); Hematocrit 41.5 % (40-54); Hemoglobin 14.2 g/dL (13.0-16.5); Lymphocyte # 1.97 X10^3/ul (0.83-4.51); Lymphocyte % 23.1 % (19-41); Mean Corp Hgb Conc 34.2 g/dL (32-36); Mean Corpuscular Hgb 33.5 pg (27.0-32.0); Mean Corpuscular Volume 97.9 fL (80-94); Mean Platelet Vol. 10.5 fl (6.2-12.0); Monocyte# 0.86 X10^3/uL; Monocyte% 10.1 % (0-10); NRBC Flagged by Analyzer 0 % (0-5); Neutrophil # 5.41 X10^3/uL (2.7-7.7); Neutrophil % 63.5 % (47-70); Platelet Count 186 K/mm3 (150-450); RBC Distribution Width CV 13.3 % (11.6-14.6); RBC Distribution Width SD 48.1 fl (35.1-43.9); Red Blood Count 4.24 M/mm3 (4.6-6.2); White Blood Count 8.5 K/mm3 (4.4-11.0)
[2021-08-05 10:13] LABS: Color, Urine Yellow (Yellow); Glucose, Dipstick Normal (Normal); Ketone-Dipstick Negative (Negative); Leukocyte Esterase-Dipstick Negative /ul (Negative); Nitrite-Dipstick Negative (Negative); Occult Blood-Urine Negative /ul (Negative); Protein-Dipstick 15 mg/dl (Negative); Specific Gravity, Urine 1.015 (1.002-1.030); Urine Bilirubin Dipstick Negative (Negative); Urine Clarity Clear (Clear); Urine Urobilinogen Normal (Normal)
[2021-08-05 10:25] LABS: Vitamin D,25 Hydroxy 58.6 ng/mL
[2021-08-05 10:38] LABS: ALB/GLOB Ratio 0.9 RATIO (0.9-2.4); AST(SGOT) 23 U/L (15-37); Alanine Aminotransfer ALT/SGPT 46 U/L (16-61); Albumin, Serum 3.6 g/dL (3.2-5.0); Alkaline Phosphatase 79 U/L (45-117); Anion Gap 9 (5-15); BUN 14 mg/dL (7-18); BUN/Creat Ratio 10.5 RATIO (10-20); Calcium,Total 9.6 mg/dL (8.5-10.1); Chloride 102 mmol/L (98-107); Creatinine, Serum 1.33 mg/dL (0.70-1.30); EST Glomerular Filtration Rate 56 mL/min (>60); Est Glom Filt Rate - Afr Amer 68 mL/min (>60); Globulin 4.2 g/dL (2.2-4.2); Glucose 182 mg/dL (74-106); Magnesium 1.9 mg/dL (1.6-2.6); Potassium 4.3 mmol/L (3.5-5.1); Protein, Total 7.8 g/dL (6.4-8.2); Sodium Level 134 mmol/L (136-145); Uric Acid 7.4 mg/dL (3.5-7.2)
== END ==
PROVIDERS: PCP Family Medicine; Referring Provider Family Medicine; Visit Provider Family Medicine
DX: I10 Essential (primary) hypertension (principal); I48.0 Paroxysmal atrial fibrillation; E55.9 Vitamin D deficiency, unspecified; E79.0 Hyperuricemia without signs of inflammatory arthritis and tophaceous disease
CPT/HCPCS: 36415; 80053; 81001; 82306; 83735; 84550; 85025

== ENCOUNTER 2021-12-07 08:15 | Outpatient (CLI) | payer MEDICARE, SELFPAY ==
[2021-12-07 08:19] LABS: Bacteria 0 SEEN /hpf (None Seen); Mucous, Urine 0 SEEN /hpf (<or=2+); Red Blood Cells-Urine 0 SEEN /hpf (0-5); Squamous Epithelial Cells - UA 0 SEEN /hpf (0-5); White Blood Cells 0 SEEN /hpf (0-5)
[2021-12-07 12:04] LABS: Absolute Neutrophil Count 3.4 X10^3/uL (2.0-7.7); Basophil# 0.03 X10^3/uL; Basophil% 0.5 % (0-1); Eosinophil# 0.18 X10^3/uL; Hematocrit 44.2 % (40-54); Lymphocyte % 28.6 % (19-41); Mean Corp Hgb Conc 33.9 g/dL (32-36); Mean Corpuscular Hgb 33.3 pg (27.0-32.0); Mean Corpuscular Volume 98.2 fL (80-94); Mean Platelet Vol. 10.5 fl (6.2-12.0); Monocyte% 10.1 % (0-10); NRBC Flagged by Analyzer 0 % (0-5); Neutrophil # 3.41 X10^3/uL (2.7-7.7); Neutrophil % 57.5 % (47-70); Platelet Count 176 K/mm3 (150-450); RBC Distribution Width CV 13.2 % (11.6-14.6); RBC Distribution Width SD 47.4 fl (35.1-43.9); White Blood Count 5.9 K/mm3 (4.4-11.0)
[2021-12-07 12:10] LABS: Color, Urine Yellow (Yellow); Glucose, Dipstick Normal (Normal); Ketone-Dipstick Negative (Negative); Leukocyte Esterase-Dipstick Negative /ul (Negative); Nitrite-Dipstick Negative (Negative); Occult Blood-Urine Negative /ul (Negative); Protein-Dipstick 15 mg/dl (Negative); Specific Gravity, Urine 1.015 (1.002-1.030); Urine Bilirubin Dipstick Negative (Negative); Urine Clarity Clear (Clear); Urine Urobilinogen Normal (Normal)
[2021-12-07 12:25] LABS: Vitamin D,25 Hydroxy 65.4 ng/mL
[2021-12-07 12:29] LABS: PTHIN 73.4 pg/mL (18.4-80.1)
[2021-12-07 12:46] LABS: Protein:Creat Ratio 147 mg/g CRE (0-200)
[2021-12-07 15:49] LABS: AST(SGOT) 76 U/L (15-37); Alanine Aminotransfer ALT/SGPT 86 U/L (16-61); Albumin, Serum 3.9 g/dL (3.2-5.0); Alkaline Phosphatase 85 U/L (45-117); Anion Gap 10 (5-15); BUN 16 mg/dL (7-18); BUN/Creat Ratio 12.6 RATIO (10-20); Calcium,Total 9.8 mg/dL (8.5-10.1); Chloride 100 mmol/L (98-107); Creatinine, Serum 1.27 mg/dL (0.70-1.30); EST Glomerular Filtration Rate 59 mL/min (>60); Est Glom Filt Rate - Afr Amer 72 mL/min (>60); Globulin 3.9 g/dL (2.2-4.2); Glucose 126 mg/dL (74-106); Phosphorus 1.9 mg/dL (2.5-4.9); Potassium 4.5 mmol/L (3.5-5.1); Protein, Total 7.8 g/dL (6.4-8.2); Sodium Level 135 mmol/L (136-145); Uric Acid 7.1 mg/dL (3.5-7.2)
[2021-12-08 11:44] LABS: Magnesium 2.3 mg/dL (1.6-2.6)
== END 2021-12-07 23:59 | disposition home or self-care (01) ==
LOC: MFPLAB 08:16
PROVIDERS: PCP Family Medicine; Visit Provider Family Medicine
DX: I12.9 Hypertensive chronic kidney disease with stage 1 through stage 4 chronic kidney disease, or unspecified chronic kidney disease (principal); I48.0 Paroxysmal atrial fibrillation; N18.30 Chronic kidney disease, stage 3 unspecified; M10.9 Gout, unspecified; E55.9 Vitamin D deficiency, unspecified
CPT/HCPCS: 36415; 80053; 81001; 82306; 82570; 83735; 83970; 84100; 84156; 84443; 84550; 85025

== ENCOUNTER → 2022-03-25 | Outpatient (CLI) | payer MEDICARE, SELFPAY ==
[2022-03-25 12:27] LABS: Absolute Neutrophil Count 3.1 X10^3/uL (2.0-7.7); Basophil# 0.03 X10^3/uL; Basophil% 0.5 % (0-1); Eosinophil# 0.16 X10^3/uL; Eosinophils% 2.7 % (0-5); Hematocrit 42.2 % (40-54); Hemoglobin 14.1 g/dL (13.0-16.5); Lymphocyte % 33.7 % (19-41); Mean Corp Hgb Conc 33.4 g/dL (32-36); Mean Corpuscular Hgb 32.8 pg (27.0-32.0); Mean Corpuscular Volume 98.1 fL (80-94); Mean Platelet Vol. 10.2 fl (6.2-12.0); Monocyte# 0.65 X10^3/uL; NRBC Flagged by Analyzer 0 % (0-5); Neutrophil # 3.07 X10^3/uL (2.7-7.7); Neutrophil % 51.8 % (47-70); Platelet Count 222 K/mm3 (150-450); RBC Distribution Width CV 13.4 % (11.6-14.6); RBC Distribution Width SD 48.9 fl (35.1-43.9); White Blood Count 5.9 K/mm3 (4.4-11.0)
[2022-03-25 12:57] LABS: AST(SGOT) 44 U/L (15-37); Alanine Aminotransfer ALT/SGPT 65 U/L (16-61); Albumin, Serum 3.8 g/dL (3.2-5.0); Alkaline Phosphatase 81 U/L (45-117); Anion Gap 4 (5-15); BUN 13 mg/dL (7-18); BUN/Creat Ratio 10.7 RATIO (10-20); Calcium,Total 10.4 mg/dL (8.5-10.1); Chloride 104 mmol/L (98-107); Creatinine, Serum 1.21 mg/dL (0.70-1.30); EST Glomerular Filtration Rate 63 mL/min (>60); Est Glom Filt Rate - Afr Amer 76 mL/min (>60); Globulin 3.7 g/dL (2.2-4.2); Glucose 154 mg/dL (74-106); Potassium 4.8 mmol/L (3.5-5.1); Protein, Total 7.5 g/dL (6.4-8.2); Sodium Level 137 mmol/L (136-145)
== END | disposition home or self-care (01) ==
LOC: MFPLAB 09:51
PROVIDERS: PCP Family Medicine; Visit Provider Family Medicine
DX: K57.92 Diverticulitis of intestine, part unspecified, without perforation or abscess without bleeding (principal)
CPT/HCPCS: 36415; 80053; 85025

== ENCOUNTER → 2022-03-25 | Outpatient (CLI) | payer MEDICARE, SELFPAY ==
--- NOTE | 2022-03-25 10:29 | CT_ITS ---
STUDY: CT ABDOMEN AND PELVIS WITH CONTRAST REASON FOR EXAM: Male, 71 years old. DIVERTICULITIS. Left lower quadrant pain. RADIATION DOSAGE (If Supplied By Facility): CTDIvol = ( 17.02 ) mGy, DLP = ( 1052.74 ) mGycm TECHNIQUE: Transaxial images were obtained from the dome of the diaphragm to the symphysis pubis with oral contrast. Oral and amp; IV Gastrografin and amp; 100mL Isovue-300 was administered. Sagittal and coronal images were reconstructed. Individualized dose optimization techniques were used for this CT. COMPARISON: Comparison is made with prior study dated 05/11/2021. FINDINGS: Stable calcified granuloma in the posterior medial segment of the right lower lobe. Coronary artery calcification. There is decreased attenuation of the liver consistent with steatosis. Normal gallbladder and extrahepatic biliary system. Normal spleen. Normal pancreas. Normal bilateral adrenal glands. Normal right kidney. Normal left kidney. There is a small hiatal hernia. Normal small intestine. There is diverticulosis, with thickening of the colon wall, and pericolonic inflammation changes consistent with acute diverticulitis. Mild degree of perisigmoid colonic inflammatory change. The appendix is visualized and appears normal. There is scattered atherosclerotic calcification of the abdominal aorta, without a demonstrated aneurysm. Normal inferior vena cava. Normal retroperitoneum. Normal urinary bladder. There is enlargement of the prostate gland. The prostate measures 4.1 cm x 4.3 cm. There is a left-sided inguinal hernia containing adipose tissue. There are degenerative changes of the visualized lumbar spine. CT/Abdomen/Pelvis WITH Contrast IMPRESSION: Mild degree of the sigmoid diverticulitis. No evidence of abscess or fluid collection. Electronically Signed: Alfredo Hale MD at 13:32 EDT ,
== END | disposition home or self-care (01) ==
LOC: CT 10:21
PROVIDERS: PCP Family Medicine; Visit Provider Family Medicine
DX: K57.32 Diverticulitis of large intestine without perforation or abscess without bleeding (principal)
CPT/HCPCS: 36415; 74177; 80053; 85025; Q9967

== ENCOUNTER → 2022-07-30 | Outpatient (CLI) | payer MEDICARE, SELFPAY ==
[2022-07-30 16:43] LABS: Mucous, Urine 0 SEEN /hpf (<or=2+); Red Blood Cells-Urine 0 SEEN /hpf (0-5)
[2022-07-30 17:45] LABS: Absolute Lymphocyte Count 2.87 X10^3/uL (0.83-4.51); Absolute Neutrophil Count 4.5 X10^3/uL (2.0-7.7); Basophil# 0.03 X10^3/uL; Basophil% 0.4 % (0-1); Eosinophil# 0.19 X10^3/uL; Eosinophils% 2.2 % (0-5); Hematocrit 43.1 % (40-54); Hemoglobin 14.7 g/dL (13.0-16.5); Lymphocyte # 2.87 X10^3/ul (0.83-4.51); Lymphocyte % 33.9 % (19-41); Mean Corp Hgb Conc 34.1 g/dL (32-36); Mean Corpuscular Hgb 32.3 pg (27.0-32.0); Mean Corpuscular Volume 94.7 fL (80-94); Monocyte# 0.82 X10^3/uL; Monocyte% 9.7 % (0-10); NRBC Flagged by Analyzer 0 % (0-5); Neutrophil # 4.53 X10^3/uL (2.7-7.7); Neutrophil % 53.4 % (47-70); Platelet Count 187 K/mm3 (150-450); RBC Distribution Width CV 13.2 % (11.6-14.6); RBC Distribution Width SD 45.3 fl (35.1-43.9); Red Blood Count 4.55 M/mm3 (4.6-6.2); White Blood Count 8.5 K/mm3 (4.4-11.0)
[2022-07-30 17:54] LABS: Color, Urine Yellow (Yellow); Glucose, Dipstick Normal (Normal); Ketone-Dipstick Negative (Negative); Leukocyte Esterase-Dipstick Negative /ul (Negative); Nitrite-Dipstick Negative (Negative); Occult Blood-Urine Negative /ul (Negative); Protein-Dipstick 15 mg/dl (Negative); Urine Bilirubin Dipstick Negative (Negative); Urine Clarity Clear (Clear); Urine Urobilinogen Normal (Normal)
[2022-07-30 18:11] LABS: PTHIN 57.5 pg/mL (18.4-80.1)
[2022-07-30 18:13] LABS: Protein:Creat Ratio 125 mg/g CRE (0-200)
[2022-07-30 18:21] LABS: Squamous Epithelial Cells - UA 0-5 SEEN /hpf (0-5); White Blood Cells 0-5 SEEN /hpf (0-5)
[2022-07-30 18:22] LABS: Bacteria RARE /hpf (None Seen)
[2022-07-30 18:48] LABS: ALB/GLOB Ratio 1.1 RATIO (0.9-2.4); AST(SGOT) 34 U/L (15-37); Alanine Aminotransfer ALT/SGPT 55 U/L (16-61); Albumin, Serum 3.9 g/dL (3.2-5.0); Alkaline Phosphatase 100 U/L (45-117); Anion Gap 9 (5-15); BUN 21 mg/dL (7-18); BUN/Creat Ratio 17.8 RATIO (10-20); Chloride 106 mmol/L (98-107); Cholesterol 188 mg/dL (200); Creatinine, Serum 1.18 mg/dL (0.70-1.30); EST Glomerular Filtration Rate 64 mL/min (>60); Est Glom Filt Rate - Afr Amer 78 mL/min (>60); Globulin 3.5 g/dL (2.2-4.2); Glucose 98 mg/dL (74-106); High Density Lipoprotein 41 mg/dL; Magnesium 1.9 mg/dL (1.6-2.6); Protein, Total 7.4 g/dL (6.4-8.2); Sodium Level 139 mmol/L (136-145); Thyroid Stim Hormone (TSH) 1.38 uIU/mL (0.358-3.74); Triglycerides 480 mg/dL; Uric Acid 6.3 mg/dL (3.5-7.2)
== END | disposition home or self-care (01) ==
LOC: MFPLAB 16:41
PROVIDERS: PCP Family Medicine; Referring Provider Family Medicine; Visit Provider Family Medicine
DX: I10 Essential (primary) hypertension (principal)
CPT/HCPCS: 36415; 80053; 80061; 81001; 82570; 83735; 83970; 84156; 84443; 84550; 85025

== ENCOUNTER → 2022-10-29 | Outpatient (CLI) | payer MEDICARE, SELFPAY ==
[2022-10-29 18:01] LABS: Anion Gap 7 (5-15); BUN 22 mg/dL (7-18); BUN/Creat Ratio 17.2 RATIO (10-20); Calcium,Total 10.1 mg/dL (8.5-10.1); Chloride 103 mmol/L (98-107); Creatinine, Serum 1.28 mg/dL (0.70-1.30); EST Glomerular Filtration Rate 59 mL/min (>60); Est Glom Filt Rate - Afr Amer 71 mL/min (>60); Glucose 87 mg/dL (74-106); Potassium 4.2 mmol/L (3.5-5.1); Sodium Level 139 mmol/L (136-145)
== END | disposition home or self-care (01) ==
LOC: MFPLAB 15:56
PROVIDERS: PCP Family Medicine; Visit Provider Family Medicine
DX: I10 Essential (primary) hypertension (principal)
CPT/HCPCS: 36415; 80048

== ENCOUNTER → 2022-11-05 | Outpatient (CLI) | payer MEDICARE, SELFPAY ==
[2022-11-05 18:28] LABS: Anion Gap 9 (5-15); BUN 21 mg/dL (7-18); BUN/Creat Ratio 17.9 RATIO (10-20); Calcium,Total 9.6 mg/dL (8.5-10.1); Chloride 101 mmol/L (98-107); Creatinine, Serum 1.17 mg/dL (0.70-1.30); EST Glomerular Filtration Rate 65 mL/min (>60); Est Glom Filt Rate - Afr Amer 79 mL/min (>60); Glucose 137 mg/dL (74-106); Potassium 3.9 mmol/L (3.5-5.1); Sodium Level 137 mmol/L (136-145)
== END | disposition home or self-care (01) ==
LOC: MFPLAB 16:28
PROVIDERS: PCP Family Medicine; Visit Provider Family Medicine
DX: I10 Essential (primary) hypertension (principal)
CPT/HCPCS: 36415; 80048

== ENCOUNTER → 2023-03-01 | Outpatient (CLI) | payer MEDICARE, SELFPAY ==
[2023-03-01 07:35] LABS: Bacteria 0 SEEN /hpf (None Seen); Mucous, Urine 0 SEEN /hpf (<or=2+); Red Blood Cells-Urine 0 SEEN /hpf (0-5); Squamous Epithelial Cells - UA 0 SEEN /hpf (0-5)
[2023-03-01 09:59] LABS: Absolute Lymphocyte Count 2.13 X10^3/uL (0.83-4.51); Absolute Neutrophil Count 2.6 X10^3/uL (2.0-7.7); Basophil# 0.04 X10^3/uL; Basophil% 0.7 % (0-1); Eosinophils% 3.6 % (0-5); Hemoglobin 14.3 g/dL (13.0-16.5); Lymphocyte # 2.13 X10^3/ul (0.83-4.51); Lymphocyte % 38.6 % (19-41); Mean Corp Hgb Conc 33.3 g/dL (32-36); Mean Corpuscular Hgb 32.7 pg (27.0-32.0); Mean Corpuscular Volume 98.4 fL (80-94); Mean Platelet Vol. 10.4 fl (6.2-12.0); Monocyte# 0.52 X10^3/uL; Monocyte% 9.4 % (0-10); NRBC Flagged by Analyzer 0 % (0-5); Neutrophil # 2.61 X10^3/uL (2.7-7.7); Neutrophil % 47.3 % (47-70); Platelet Count 171 K/mm3 (150-450); RBC Distribution Width CV 12.7 % (11.6-14.6); RBC Distribution Width SD 45.8 fl (35.1-43.9); Red Blood Count 4.37 M/mm3 (4.6-6.2); White Blood Count 5.5 K/mm3 (4.4-11.0)
[2023-03-01 10:01] LABS: Color, Urine Yellow (Yellow); Glucose, Dipstick Normal (Normal); Ketone-Dipstick Negative (Negative); Leukocyte Esterase-Dipstick 25 /ul (Negative); Nitrite-Dipstick Negative (Negative); Occult Blood-Urine Negative /ul (Negative); Protein-Dipstick 15 mg/dl (Negative); Urine Bilirubin Dipstick Negative (Negative); Urine Clarity Clear (Clear); Urine Urobilinogen Normal (Normal)
[2023-03-01 10:15] LABS: White Blood Cells 0-5 SEEN /hpf (0-5)
[2023-03-01 10:31] LABS: Vitamin D,25 Hydroxy 71.5 ng/mL
[2023-03-01 10:38] LABS: ALB/GLOB Ratio 1.1 RATIO (0.9-2.4); AST(SGOT) 55 U/L (15-37); Alanine Aminotransfer ALT/SGPT 77 U/L (16-61); Albumin, Serum 3.8 g/dL (3.2-5.0); Alkaline Phosphatase 73 U/L (45-117); Anion Gap 5 (5-15); BUN 19 mg/dL (7-18); BUN/Creat Ratio 13.8 RATIO (10-20); Calcium,Total 10.4 mg/dL (8.5-10.1); Chloride 106 mmol/L (98-107); Cholesterol 188 mg/dL (200); Creatinine, Serum 1.38 mg/dL (0.70-1.30); EST Glomerular Filtration Rate 54 mL/min (>60); Est Glom Filt Rate - Afr Amer 65 mL/min (>60); Globulin 3.5 g/dL (2.2-4.2); Glucose 151 mg/dL (74-106); High Density Lipoprotein 39 mg/dL; Magnesium 1.8 mg/dL (1.6-2.6); Potassium 4.7 mmol/L (3.5-5.1); Protein, Total 7.3 g/dL (6.4-8.2); Sodium Level 138 mmol/L (136-145); Thyroid Stim Hormone (TSH) 1.46 uIU/mL (0.358-3.74); Triglycerides 279 mg/dL; Uric Acid 7.6 mg/dL (3.5-7.2); Very Low Density Lipoprotein 56 mg/dL (5-40)
[2023-03-02 10:55] LABS: PTHIN 40.4 pg/mL (18.4-80.1)
== END | disposition home or self-care (01) ==
LOC: MTLAB 07:32
PROVIDERS: PCP Family Medicine; Referring Provider Family Medicine; Visit Provider Family Medicine
DX: E83.52 Hypercalcemia (principal); I48.0 Paroxysmal atrial fibrillation; I10 Essential (primary) hypertension; M10.9 Gout, unspecified; E55.9 Vitamin D deficiency, unspecified
CPT/HCPCS: 80053; 80061; 81001; 82306; 83735; 83970; 84443; 84550; 85025

== ENCOUNTER → 2023-03-03 | Outpatient (CLI) | payer MEDICARE, SELFPAY ==
[2023-03-03 18:57] LABS: PSA,Total - Annual Screen 1.19 ng/mL (0.00-4.00)
[2023-03-03 19:16] LABS: Hemoglobin A1c 5.2 % (3.8-5.6)
== END | disposition home or self-care (01) ==
LOC: MFPLAB 15:33
PROVIDERS: PCP Family Medicine; Visit Provider Family Medicine
DX: R73.09 Other abnormal glucose (principal); Z12.5 Encounter for screening for malignant neoplasm of prostate
CPT/HCPCS: 36415; 83036; 84153; G0103

== ENCOUNTER → 2023-06-24 | Outpatient (CLI) | payer MEDICARE, SELFPAY ==
[2023-06-24 08:29] LABS: Bacteria 0 SEEN /hpf (None Seen); Mucous, Urine 0 SEEN /hpf (<or=2+); Red Blood Cells-Urine 0 SEEN /hpf (0-5); Squamous Epithelial Cells - UA 0 SEEN /hpf (0-5)
[2023-06-24 10:06] LABS: Absolute Lymphocyte Count 2.05 X10^3/uL (0.83-4.51); Absolute Neutrophil Count 2.9 X10^3/uL (2.0-7.7); Basophil# 0.05 X10^3/uL; Basophil% 0.9 % (0-1); Eosinophil# 0.19 X10^3/uL; Eosinophils% 3.4 % (0-5); Hematocrit 43.5 % (40-54); Lymphocyte # 2.05 X10^3/ul (0.83-4.51); Lymphocyte % 36.2 % (19-41); Mean Corp Hgb Conc 34.5 g/dL (32-36); Mean Corpuscular Hgb 33.6 pg (27.0-32.0); Mean Corpuscular Volume 97.5 fL (80-94); Mean Platelet Vol. 9.5 fl (6.2-12.0); Monocyte# 0.52 X10^3/uL; Monocyte% 9.2 % (0-10); NRBC Flagged by Analyzer 0 % (0-5); Neutrophil # 2.85 X10^3/uL (2.7-7.7); Neutrophil % 50.1 % (47-70); Platelet Count 152 K/mm3 (150-450); RBC Distribution Width CV 13.2 % (11.6-14.6); RBC Distribution Width SD 46.5 fl (35.1-43.9); Red Blood Count 4.46 M/mm3 (4.6-6.2); White Blood Count 5.7 K/mm3 (4.4-11.0)
[2023-06-24 10:29] LABS: Color, Urine Yellow (Yellow); Glucose, Dipstick Normal (Normal); Ketone-Dipstick Negative (Negative); Leukocyte Esterase-Dipstick Negative /ul (Negative); Nitrite-Dipstick Negative (Negative); Occult Blood-Urine Negative /ul (Negative); Protein-Dipstick 30 mg/dl (Negative); Urine Bilirubin Dipstick Negative (Negative); Urine Clarity Clear (Clear); Urine Urobilinogen Normal (Normal); Urine pH 6.5 (5.0 - 8.0)
[2023-06-24 10:50] LABS: White Blood Cells 0-5 SEEN /hpf (0-5)
[2023-06-24 10:53] LABS: PTHIN 65.5 pg/mL (18.4-80.1)
[2023-06-24 11:06] LABS: ALB/GLOB Ratio 1.1 RATIO (0.9-2.4); AST(SGOT) 42 U/L (15-37); Alanine Aminotransfer ALT/SGPT 65 U/L (16-61); Albumin, Serum 3.9 g/dL (3.2-5.0); Alkaline Phosphatase 88 U/L (45-117); Anion Gap 7 (5-15); BUN 17 mg/dL (7-18); BUN/Creat Ratio 13.2 RATIO (10-20); Calcium,Total 9.9 mg/dL (8.5-10.1); Chloride 104 mmol/L (98-107); Cholesterol 192 mg/dL (200); Creatinine, Serum 1.29 mg/dL (0.70-1.30); EST Glomerular Filtration Rate 58 mL/min (>60); Est Glom Filt Rate - Afr Amer 70 mL/min (>60); Globulin 3.5 g/dL (2.2-4.2); Glucose 145 mg/dL (74-106); High Density Lipoprotein 45 mg/dL; Potassium 4.3 mmol/L (3.5-5.1); Protein, Total 7.4 g/dL (6.4-8.2); Sodium Level 137 mmol/L (136-145); Triglycerides 345 mg/dL; Very Low Density Lipoprotein 69 mg/dL (5-40)
[2023-06-24 12:05] LABS: Hemoglobin A1c 4.9 % (3.8-5.6)
[2023-06-24 14:07] LABS: Protein:Creat Ratio 197 mg/g CRE (0-200)
== END | disposition home or self-care (01) ==
LOC: MTLAB 08:01
PROVIDERS: PCP Family Medicine; Referring Provider Family Medicine; Visit Provider Family Medicine
DX: E83.52 Hypercalcemia (principal); N18.30 Chronic kidney disease, stage 3 unspecified; E78.1 Pure hyperglyceridemia; R73.09 Other abnormal glucose
CPT/HCPCS: 36415; 80053; 80061; 81001; 82570; 83036; 83735; 83970; 84156; 85025

== ENCOUNTER 2023-07-19 07:27 | Day surgery (SDC) | payer MEDICARE, SELFPAY ==
[2023-07-19] VITALS (8 sets, daily range): BP systolic 86–160; BP diastolic 48–90; PULSE 50–67; RESP 14–97; TEMP 36.1–36.8; O2SAT 16–99; BMI 30.4
[2023-07-19] MEDS: Lactated Ringers 1,000 ML 15 ML IV (07:49)
--- NOTE | 2023-07-19 08:19 | HP.PCM_ITS ---
HPI - General HPI Narrative VERNA VALE, is a 73 M who presents for surveillance colonoscopy. His last colonoscopy was 5 years ago and he had a polyp removed. He denies abdominal pain or blood in the stool. He has had diverticulitis in the past. He is on Eliquis for A-fib and has held it. [facility] Medical History (Updated 07/19/23 @ 08:[address] Saad Abdi MD) Alcohol use Arthritis Bilateral plantar fasciitis Cardiology follow-up encounter Complex renal cyst CPAP (continuous positive airway pressure) dependence Diverticulitis Essential hypertension Family hx of colon cancer Fatty liver Former smoker History of atrial fibrillation History of diverticulitis History of echocardiogram History of stress test GASPER (obstructive sleep apnea) Paroxysmal atrial fibrillation Personal history of colonic polyps Scalp cyst Screening for intestinal cancer Sleep apnea Syncope Umbilical hernia, incarcerated Wears contact lenses Home Medications cholecalciferol (vitamin D3) 25 mcg (1,000 unit) tablet 1,000 unit PO DAILY v itamin 06/06/18 [History Last Taken 07/31/19] glucosamine HCl 1,500 mg tablet 1,500 mg PO DAILY arthritis 06/06/18 [History Last Taken 07/31/19] multivitamin,om-zebv-uobewsla 27 mg-0.4 mg tablet 1 tab PO DAILY vitamin 06/06/18 [History Last Taken 07/31/19] metoprolol tartrate 50 mg tablet 50 mg PO BID 08/10/19 [History Last Taken 09/01/20] apixaban 5 mg tablet 5 mg PO BID #60 tabs 10/03/19 [Rx Last Taken Unknown] allopurinol 100 mg tablet 100 mg PO DAILY 03/17/21 [History Last Taken Unknown] losartan 50 mg tablet 50 mg PO DAILY 05/30/23 [History Last Taken Unknown] Allergy/AdvReac Type Severity Reaction Status Date / Time No Known Allergies Allergy Verified 07/19/23 07:46 Family History Mother Breast cancer Heart disease Thyroid disorder Atrial fibrillation Hypertension Father Hypertension Diabetes Cancer Lung Brother Heart disease Cancer Daughter Colon cancer Surgical History Aftercare following finger joint replacement surgery History of tonsillectomy Hx of colonoscopy Hx of umbilical hernia repair Social History Smoking Status: Former smoker alcohol intake: current alcohol intake frequency: a few times a month substance use type: does not use caffeine: Yes Type: coffee Number of servings: 2 what type of physical activity do you participate in: none frequency: does not exercise Past Medical/Surgical History Planned Operation Planned Operative Procedure/s: CSCOPE OA S.O.S: No Previous Hospitalizations/Surgeries HX Hospitalizations: No HX of Surgeries: L THUMB REATTATCHED LARRY THUMBS & FOREFINGER JOINT REPLACEMENT Any Problems With Anesthesia: No You/Your Family Experience Fever (Hyperthermia) With Anes: No Cholinesterase deficiency: No Cardiovascular Hx Chest Pain within Last 2 months: No Hx of Irregular Heartbeat and/or Afib: Yes (A-FIB, [facility], LAST VISIT 01/07/20) Hx Heart Attack: No Hx Congestive Heart Failure: No Hx Rheumatic Fever: No Hx Hypertension: Yes (CONTROLLED WITH MEDS) Hx Internal Defibrillator: No Hx Pacemaker: No Hx Cardiac Catheterization: No Hx Cardiac Surgery/Stents/Etc.: No Hx Stress Test: Yes ([facility] 2019, ECHO 2019) Hx Pain in Legs when Walking/Leg Cramps: No Respiratory Chronic Cough: No Hoarseness: No Hx Chronic Obstructive Pulmonary Disease (COPD): No Hx Asthma: No Hx Emphysema: No Hx Sleep Apnea: Yes CPAP: Yes BIPAP: No Hx Respiratory Tract Infection/Cold (presently): No Result (for STOP score): Positive Hx Smoking: Yes (QUIT YRS AGO) Smoking Status: Former smoker Gastrointestinal Hx Gastroesophageal Reflux: No Hx Gastrointestinal Disorders: Yes (HX DIVERTICULITIS) Hx Gastrointestinal Bleed: No Hx Ulcer: No Hx Hiatal Hernia: No Difficulty Chewing/Swallowing: No Special diet followed at home: No Hx Unplanned Weight Loss of 20#: No HX Unplanned Weight Gain of 20#: No Neurological Hx Seizures: No HX Syncope/Blackout Spells/Unconsciousness: No Hx Transient Ischemic Attacks (TIA): No Hx Multiple Sclerosis: No Hx Parkinson's Disease: No Hx Head/Neck Injury: No Hx Headaches: No Hx Back Injury/Pain: No Recent Onset of Speech Difficulty: No Restless Legs: No Does patient have nerve stimulator: No Blood Disorder Hx Leukemia: No Bleeding Tendencies: No Hx Deep Vein Thrombosis: No Hx High Cholesterol: Yes Blood Transmitted Disease: No Hx Hepatitis: No Hx Cirrhosis: No Hx Anemia: No Hx Blood Disorders: No Reproduction : No Genitourinary Hx Renal Disease: No Hx Dialysis: No Musculoskeletal Hx Arthritis: Yes Hx Rheumatoid Arthritis: No Hx Gout: No Recent Onset of an Orthopedic Problem: No Endocrine Hx Diabetes: No Thyroid Disease: No Hx Steroid Therapy: Yes (R FOOT INJ) Psycho/Social Hx Substance Use: No Hx Alcohol Use: Yes (SOCIAL) Hx Anxiety: No Hx Depression: No Mental Illness: No Hx Dementia: No Miscellaneous Hx Cancer: No Recent Exposure to Contagious Disease: No Hx of C-Diff: No Any Loose Teeth: No Allergies No Known Allergies Allergy (Verified 07/19/23 07:46) Paternal: Family History Mother Breast cancer Heart disease Thyroid disorder Atrial fibrillation Hypertension Father Hypertension Diabetes Cancer Brother Heart disease Cancer Daughter Colon cancer Cancer and - Discharge Is Pt Admitted From a Detention, or a Jail: No After D/C, Where Do you Plan to Go: Return Home From the PAT History Number of Risk Factors: 2 Vital Signs Vital Signs Vital Signs: 07/19/23 07:46 07/19/23 07:46 Temperature 98.0 F Temperature Source Temporal Pulse Rate 67 Respiratory Rate 16 Respiratory Pattern Normal Blood Pressure 160/90 H Blood Pressure Mean 113 Blood Pressure Source Monitor Blood Pressure Position Sitting Blood Pressure Location Left Arm Pulse Ox 99 Oxygen Delivery Method Room Air Weight Weight: 200 lb 9.93 oz Body Mass Index (BMI) 30.4 Physical Exam Const alert and oriented x3 HEENT normocephalic Eyes PERRL Resp normal respiratory effort and normal air movement Cardio regular rate and regular rhythm GI soft to palpation, non-tender and non-distended Extremity normal to inspection Assessment & Plan Assessment/Plan (1) Personal history of colonic polyps: PLAN: I explained endoscopy in detail to the patient. I explained the risks including but not limited to stroke or heart attack with anesthesia, perforation of the GI tract, bleeding, infection. I explained that any of these could necessitate further emergency surgery. The patient understands and all questions were answered sufficiently. The patient wishes to proceed with procedure. Saad Abdi MD Pager: [facility] [address] [place] [address], [address] [place] [address] Office: Surgery Risks - Colonoscopy Risks Include but are not Limited To: Risks include but are not limited to: Bleeding, perforation requiring further surgery, inability to complete colonoscopy requiring barium enema.
--- NOTE | 2023-07-19 08:54 | OP.CCLET_ITS ---
07/19/2023 Leonardo Kidd [address] [place] [address] Re : Colonoscopy procedure for Ayaan Kessleroughlin Dear Dr. Kidd This procedure was performed on Wednesday, July 19, 2023. My impressions and recommendations are as follows: Impressions : - The entire examined colon is normal on direct and retroflexion views. - No specimens collected. Recommendations : - Discharge patient to home. - Resume previous diet. - Continue present medications. - Resume Eliquis (apixaban) at prior dose tomorrow. - Repeat colonoscopy is not recommended due to current age (66 years or older) for screening purposes. My findings are described in the full procedure note, which is enclosed. If I can be of further assistance, please feel free to contact me at Doctor phone number(s): , Work: . Sincerely, Saad Abdi MD 07/19/2023 8:53:50 AM This report has been signed electronically.
--- NOTE | 2023-07-19 08:54 | OP.COLON_ITS ---
Patient Name: Ayaan Hoffman Procedure Date: 07/19/2023 8:21 AM Date of : 1950 Age: 73 Procedure: Colonoscopy Indications: High risk colon cancer surveillance: Personal history of colonic polyps Providers: Saad Abdi MD Referring MD: Leonardo Kidd Medicines: Monitored Anesthesia Care Patient Profile: This is a 73 year old male. Refer to note in patient chart for documentation of history and physical. Last Colonoscopy: 5 years ago. Complications: No immediate complications. Procedure: Pre-Anesthesia Assessment: - Prior to the procedure, a History and Physical was performed, and patient medications and allergies were reviewed. The patient's tolerance of previous anesthesia was also reviewed. The risks and benefits of the procedure and the sedation options and risks were discussed with the patient. All questions were answered, and informed consent was obtained. Prior Anticoagulants: The patient has taken Eliquis (apixaban), last dose was 3 days prior to procedure. ASA Grade Assessment: II - A patient with mild systemic disease. After reviewing the risks and benefits, the patient was deemed in satisfactory condition to undergo the procedure. After I obtained informed consent, the scope was passed under direct vision. Throughout the procedure, the patient's blood pressure, pulse, and oxygen saturations were monitored continuously. The pediatric colonoscope was introduced through the anus and advanced to the cecum, identified by appendiceal orifice and ileocecal valve. The colonoscopy was performed without difficulty. The patient tolerated the procedure well. The quality of the bowel preparation was good. The ileocecal valve, appendiceal orifice, and rectum were photographed. Scope In: 8:28:01 AM Scope Withdrawal Time 0 hours 3 minutes 39 seconds Scope Out: 8:36:55 AM Total Procedure Duration Time 0 hours 8 minutes 54 seconds Findings: The entire examined colon appeared normal on direct and retroflexion views. Impression: - The entire examined colon is normal on direct and retroflexion views. - No specimens collected. Recommendation: - Discharge patient to home. - Resume previous diet. - Continue present medications. - Resume Eliquis (apixaban) at prior dose tomorrow. - Repeat colonoscopy is not recommended due to current age (66 years or older) for screening purposes. Procedure Code(s): --- Professional --- 31006, Colonoscopy, flexible; diagnostic, including collection of specimen(s) by brushing or washing, when performed (separate procedure) Diagnosis Code(s): --- Professional --- Z86.010, Personal history of colonic polyps CPT copyright 2021 [employer]. All rights reserved. The codes documented in this report are preliminary and upon quality assurance coach review may be revised to meet current compliance requirements. Saad Abdi MD 07/19/2023 8:53:50 AM This report has been signed electronically. Number of Addenda: 0 Note Initiated On: 07/19/2023 8:21 AM
== END 2023-07-19 09:25 | disposition home or self-care (01) ==
LOC: EN 07:30 → AC 07:30
PROVIDERS: PCP Family Medicine; Referring Provider Family Medicine; Visit Provider Surgery
PROC: 0DJD8ZZ Inspection of Lower Intestinal Tract, Via Natural or Artificial Opening Endoscopic (ICD-10-PCS; CPT 45378; principal; 2023-07-19 08:25)
DX: Z12.11 Encounter for screening for malignant neoplasm of colon (principal); I48.0 Paroxysmal atrial fibrillation; I10 Essential (primary) hypertension; G47.33 Obstructive sleep apnea (adult) (pediatric); Z79.01 Long term (current) use of anticoagulants; Z79.899 Other long term (current) drug therapy; Z86.010 Personal history of colon polyps; Z87.891 Personal history of nicotine dependence; Z80.0 Family history of malignant neoplasm of digestive organs
CPT/HCPCS: 45378; J7120

== ENCOUNTER → 2023-11-03 | Outpatient (CLI) | payer MEDICARE, SELFPAY ==
--- OUTSIDE RECORDS SUMMARY | 2023-11-03 07:54 | XMS RPT_ITS | CCD ---
Author Name Unknown Address [address] [place] [address] Organization [facility] Care Team Providers Care Mechanical Engineering Technician Name Role Phone Karol Díaz Unavailable Zoie Mar Unavailable Unavailable Joaquin Mercer (Hist) Primary Care Provider Un available Medications Completed/Discontinued Medications Medication Drug Class(es) Dates Sig (Normalized) Sig (Original) allopurinol 300 mg oral tablet (1 source) Xanthine Oxidase Inhibitor Start: 05-12-2015 take 1 tablet by mouth once daily allopurinol (ZYLOPRIM) 300 mg tablet Take 1 tablet by mouth once daily. For gout. 90 tablet 3 05/12/2015 Active Problems Active Problems Problem Classification Problem Date Documented Date Episodic/Chronic Disorders of lipid metabolism (1 source) Hyperlipidemia; Translations: [Hyperlipidemia, unspecified] Onset: 07-25-2006 07-25-2006 Chronic Essential hypertension (1 source) Benign essential hypertension; Translations: [Essential (primary) hypertension] Onset: 07-25-2006 07-25-2006 Chronic Gout and other crystal arthropathies (1 source) Gout; Translations: [Gout, unspecified] Onset: 03-06-2008 03-06-2008 Chronic Immunizations and screening for infectious disease (2 sources) Contact with and (suspected) exposure to other viral communicable diseases; Translations: [Exposure to SARS virus] 08-25-2020 Episodic Other congenital anomalies (1 source) Congenital anomaly of skin; Translations: [Other specified congenital malformations of skin] Onset: 05-05-2009 05-05-2009 Chronic Other liver diseases (1 source) Chronic nonalcoholic liver disease; Translations: [Other specified diseases of liver] Onset: 07-25-2006 07-25-2006 Chronic Other nutritional; endocrine; and metabolic disorders (2 sources) Body mass index 30+ - obesity; Translations: [BMI 31.0-31.9,adult] 08-25-2020 Chronic Other nutritional; endocrine; and metabolic disorders (1 source) Obesity; Translations: [Obesity, unspecified] Onset: 07-25-2006 07-25-2006 Chronic Residual codes; unclassified (1 source) Sleep apnea; Translations: [Sleep apnea, unspecified] Onset: 03-06-2008 03-06-2008 Chronic Past or Other Problems Problem Classification Problem Date Documented Da te Episodic/Chronic Diabetes mellitus without complication (1 source) Impaired fasting glycemia; Translations: [Impaired fasting glucose] Onset: 03-06-2008 03-06-2008 Episodic Other skin disorders (1 source) Sebaceous cyst of skin; Translations: [Sebaceous cyst] Onset: 05-28-2009 05-28-2009 Episodic Residual codes; unclassified (1 source) Family history of prostate cancer; Translations: [Family history of malignant neoplasm of prostate] Onset: 07-25-2006 03-05-2008 Episodic Unclassified (4 sources) Non-smoker for medical reasons; Translations: [Non-smoker for medical reasons] 08-25-2020 Vital Signs Date Time Vital Sign Value Performing Clinician Faci lity 08-25-2020 10:13-0500 BMI (Body Mass Index) 31.93 kg/m2 Karol Moss Creative Project Manager al Medicine Work Phone: Encounters Encounter Date Encounter Type Care Provider Facility Start: 08-25-2020 End: 08-25-2020 Phone Encounter Karol Moss [employer] Start: 08-25-2020 End: 08-25-2020 Office outpatient new 20 minutes Karol Díaz [facility] Start: 04-12-2017 End: 04-12-2017 Telephone encounter Jus Alfaro MD Work Phone: General Surgery Procedures Date Procedure Procedure Detail Performing Clinician Start: 09-07-2007 Colonoscopy Jus moore MD Work Phone: Plan of Treatment Date Care Activity Detail Author Start: 2021 [facility] Start: 08-25-2020 Procedure Education Eprescribed prescriptions (G8553) [facility] Work Phone: Start: 08-25-2020 Iaadiadoo influenza 2019 Novel Coronavirus (COVID-19), [place]RIQUETA (51236) [facility] Work Phone: Start: 05-02-2019 LIPID SCREEN LIPID SCREEN [facility] Start: 03-18-2019 Urine microalbumin profile DTAP,TDAP,TD (2 - Td or Tdap) [facility] Start: 09-07-2017 Screening for malignant neoplasm of colon [facility] Start: 05-02-2017 DIABETES SCREEN DIABETES SCREEN [facility] Start: 2014 ADVANCE DIRECTIVE DISCUSSION ADVANCE DIRECTIVE DISCUSSION [facility] Start: 2014 PNEUMOVAX AGE 65 AND OVER WITH 5YR LOOKBACK (#1) PNEUMOVAX AGE 65 AND OVER WITH 5YR LOOKBACK (#1) [facility] Start: 09-21-2012 SHINGRIX VACCINE (2 of 3) SHINGRIX VACCINE (2 of 3) [facility] Start: 1999 Screening for malignant neoplasm of colon [facility] Start: 1961 Adult depression screening assessment DEPRESSION SCREENING [facility] Start: 1950 ABDOMINAL AORTIC ANEURYSM SCREENING ABDOMINAL AORTIC ANEURYSM SCREENING [facility] Immunizations Immunization Date Immunization Notes Care Provider Fa cility 08-31-2013 influenza virus vacc ine, unspecified formulation Jus Alfaro MD Work Phone: [facility] 07-27-2012 zoster vaccine, live Jus Alfaro MD Work Phone: [facility] 03-18-2009 tetanus toxoid, redu gisell diphtheria toxoid, and acellular pertussis vaccine, adsorbed Jus Alfaro MD Work Phone: [facility] Payers Date Payer Category Payer Unknown [facility] [id number] 2011-2019 [employer] [id number] Unknown [place] BC/BS Social History Date Type Detail Facility Start: 05-06-2014 Tobacco smoking stat us [facility] Former smoker [facility] End: 10-24-1995 History of tobacco use Current smoker [facility] Start: 05-06-2014 Tobacco use and exposure Never used [facility] Start: 05-06-2014 Alcohol intake Current drinke r of alcohol (finding) [facility] Start: 1950 Sex Assigned At Not on file [facility] Instructions Name Dates Details How to access health informa tion online Indication:Non-smoker for medical reasons Start:25-Aug-2020 Instruction Type:Patient Edu cation How to access health informa tion online - Detail Indication:Non-smoker for medical reasons Start:25-Aug-2020 Instruction Type:Patient Edu cation Patient Instructions Indication:Non-smoker for medical reasons Start:25-Aug-2020 Instruction Type:Provider Instructions for Treatment Name Dates Details How to access health informa tion online Indication:Non-smoker for medical reasons Start:25-Aug-2020 Instruction Type:Patient Edu cation How to access health informa tion online - Detail Indication:Non-smoker for medical reasons Start:25-Aug-2020 Instruction Type:Patient Edu cation Patient Instructions Indication:Non-smoker for medical reasons Start:25-Aug-2020 Instruction Type:Provider Instructions for Treatment Additional Source Comments Source Comments (unrecognize d section and content) In the event this informatio n is protected by the Federal Confidentiality of Alcohol and Drug Abuse Patient Records regulations: The Federal rules restrict any use of the information to criminally investigate or prosecute any alcohol or drug abuse patient.[facility] FOR RECORDS PERTAINING TO PATIENTS WHO ARE OR HAVE BEEN ENROLLED IN A CHEMICAL DEPENDENCY/SUBSTANCEABUSE PROGRAM, SOME INFORMATION MAY BE OMITTED. This clinical summary was aggregated from multiple sources. Caution should be exercised in using it in the provision of clinical care. This summary normalizes information from multiple sources, and as a consequence, information in this document may materially change the coding, format and clinical context of patient data. In addition, data may be omitted in some cases. CLINICAL DECISIONS SHOULD BE BASED ON THE PRIMARY CLINICAL RECORDS. [employer] [facility]. provides no warranty or guarantee of the accuracy or completeness of information in this document.
[2023-11-03 07:57] LABS: Bacteria 0 SEEN /hpf (None Seen); Mucous, Urine 0 SEEN /hpf (<or=2+); Red Blood Cells-Urine 0 SEEN /hpf (0-5); Squamous Epithelial Cells - UA 0 SEEN /hpf (0-5)
[2023-11-03 10:13] LABS: Color, Urine Yellow (Yellow); Glucose, Dipstick Normal (Normal); Ketone-Dipstick Negative (Negative); Leukocyte Esterase-Dipstick 25 /ul (Negative); Nitrite-Dipstick Negative (Negative); Occult Blood-Urine Negative /ul (Negative); Protein-Dipstick 30 mg/dl (Negative); Urine Bilirubin Dipstick Negative (Negative); Urine Clarity Clear (Clear); Urine Urobilinogen Normal (Normal)
[2023-11-03 10:15] LABS: Absolute Lymphocyte Count 2.46 X10^3/uL (0.83-4.51); Absolute Neutrophil Count 2.8 X10^3/uL (2.0-7.7); Basophil# 0.06 X10^3/uL; Eosinophil# 0.26 X10^3/uL; Eosinophils% 4.2 % (0-5); Hematocrit 43.3 % (40-54); Hemoglobin 14.8 g/dL (13.0-16.5); Lymphocyte # 2.46 X10^3/ul (0.83-4.51); Lymphocyte % 39.5 % (19-41); Mean Corp Hgb Conc 34.2 g/dL (32-36); Mean Corpuscular Volume 96.4 fL (80-94); Monocyte# 0.63 X10^3/uL; Monocyte% 10.1 % (0-10); NRBC Flagged by Analyzer 0 % (0-5); Neutrophil % 44.9 % (47-70); Platelet Count 176 K/mm3 (150-450); RBC Distribution Width CV 13.1 % (11.6-14.6); RBC Distribution Width SD 46.4 fl (35.1-43.9); Red Blood Count 4.49 M/mm3 (4.6-6.2); White Blood Count 6.2 K/mm3 (4.4-11.0)
[2023-11-03 10:24] LABS: White Blood Cells 0-5 SEEN /hpf (0-5)
[2023-11-03 10:52] LABS: AST(SGOT) 51 U/L (15-37); Alanine Aminotransfer ALT/SGPT 77 U/L (16-61); Albumin, Serum 3.8 g/dL (3.2-5.0); Alkaline Phosphatase 93 U/L (45-117); Anion Gap 6 (5-15); BUN 21 mg/dL (7-18); BUN/Creat Ratio 14.8 RATIO (10-20); Calcium,Total 9.9 mg/dL (8.5-10.1); Chloride 106 mmol/L (98-107); Creatinine, Serum 1.42 mg/dL (0.70-1.30); EST Glomerular Filtration Rate 52 mL/min (>60); Est Glom Filt Rate - Afr Amer 63 mL/min (>60); Globulin 3.7 g/dL (2.2-4.2); Glucose 166 mg/dL (74-106); Magnesium 2.1 mg/dL (1.6-2.6); Potassium 4.8 mmol/L (3.5-5.1); Protein, Total 7.5 g/dL (6.4-8.2); Sodium Level 137 mmol/L (136-145); Uric Acid 7.4 mg/dL (3.5-7.2)
[2023-11-03 11:02] LABS: Vitamin D,25 Hydroxy 52.5 ng/mL
[2023-11-03 11:07] LABS: Protein, Urine (Random) 27.2 mg/dL (<11.9); Protein:Creat Ratio 214 mg/g CRE (0-200)
== END | disposition home or self-care (01) ==
LOC: MTLAB 07:44
PROVIDERS: PCP Family Medicine; Referring Provider Family Medicine; Visit Provider Family Medicine
DX: I10 Essential (primary) hypertension (principal); I48.0 Paroxysmal atrial fibrillation; E55.9 Vitamin D deficiency, unspecified; E79.0 Hyperuricemia without signs of inflammatory arthritis and tophaceous disease
CPT/HCPCS: 36415; 80053; 81001; 82306; 82570; 83735; 84156; 84550; 85025

== ENCOUNTER → 2024-03-02 | Outpatient (CLI) | payer OTHER, SELFPAY ==
--- NOTE | 2024-03-02 08:07 | US_ITS ---
STUDY: ABDOMINAL ULTRASOUND - RIGHT UPPER QUADRANT; ELASTOGRAPHY REASON FOR VISIT: Male, 73 years old. Elevated AST. TECHNIQUE: Ultrasound evaluation of the right upper quadrant was performed with real-time and static borges-scale imaging. Point quantification shear wave elastography was performed (Nasseo). TECHNICAL QUALITY: Adequate. COMPARISON: Comparison is made with prior study dated April 08, 2020. FINDINGS: Liver: The liver is enlarged and measures 18.7 cm. There is increased echogenicity consistent with fatty infiltration. The bile ducts are within normal limits. There is hepatic color flow. The direction of portal flow is hepatopetal. There is no demonstrated mass lesion. Median liver stiffness measured 13.8 kPa. Gallbladder: Normal distended gallbladder. The gallbladder wall measures 1.8 mm. There is a negative sonographic Hoskins''s sign. There is no pericholecystic fluid. There are no gallstones. Small polyps are seen adherent to the gallbladder wall measuring between 4 and 7 mm. Common Bile Duct (C.B.D.): The common bile duct measures 6.1 mm. Pancreas: There is normal echogenicity of the visualized pancreas. There is no demonstrated pancreatic mass or cyst. Right Kidney: Normal size of the right kidney. The right kidney measures 11.8 cm x 4.8 cm x 5.6 cm. Normal renal cortex. The right cortex measures 1.9 cm. There is no demonstrated renal mass or cyst. There is no right hydronephrosis. US/ABD Limited w/ Elastography IMPRESSION: 1. Liver stiffness measures 13.8 kPa compatible with F3-F4 (Moderate to severe liver fibrosis) Metavir score. Electronically Signed: Alfredo Hale MD at 10:32 EDT ,
[2024-03-02 08:33] LABS: Bacteria 0 SEEN /hpf (None Seen); Mucous, Urine 0 SEEN /hpf (<or=2+); Red Blood Cells-Urine 0 SEEN /hpf (0-5); Squamous Epithelial Cells - UA 0 SEEN /hpf (0-5); White Blood Cells 0 SEEN /hpf (0-5)
[2024-03-02 10:25] LABS: Color, Urine Yellow (Yellow); Glucose, Dipstick Normal (Normal); Ketone-Dipstick Negative (Negative); Leukocyte Esterase-Dipstick Negative /ul (Negative); Nitrite-Dipstick Negative (Negative); Occult Blood-Urine Negative /ul (Negative); Protein-Dipstick 15 mg/dl (Negative); Urine Bilirubin Dipstick Negative (Negative); Urine Clarity Clear (Clear); Urine Urobilinogen Normal (Normal)
[2024-03-02 10:28] LABS: Absolute Neutrophil Count 3.6 X10^3/uL (2.0-7.7); Basophil# 0.05 X10^3/uL; Basophil% 0.7 % (0-1); Eosinophil# 0.23 X10^3/uL; Eosinophils% 3.4 % (0-5); Hematocrit 42.6 % (40-54); Hemoglobin 14.4 g/dL (13.0-16.5); Mean Corp Hgb Conc 33.8 g/dL (32-36); Mean Corpuscular Hgb 32.7 pg (27.0-32.0); Mean Corpuscular Volume 96.8 fL (80-94); Mean Platelet Vol. 10.2 fl (6.2-12.0); Monocyte# 0.56 X10^3/uL; Monocyte% 8.3 % (0-10); NRBC Flagged by Analyzer 0 % (0-5); Neutrophil % 53.3 % (47-70); Platelet Count 211 K/mm3 (150-450); RBC Distribution Width CV 12.2 % (11.6-14.6); RBC Distribution Width SD 43.6 fl (35.1-43.9); White Blood Count 6.8 K/mm3 (4.4-11.0)
[2024-03-02 11:10] LABS: Vitamin D,25 Hydroxy 52.1 ng/mL
[2024-03-02 11:11] LABS: PTHIN 49.1 pg/mL (18.4-80.1)
[2024-03-02 11:16] LABS: ALB/GLOB Ratio 1.1 RATIO (0.9-2.4); AST(SGOT) 42 U/L (15-37); Alanine Aminotransfer ALT/SGPT 66 U/L (16-61); Alkaline Phosphatase 84 U/L (45-117); Anion Gap 7 (5-15); BUN 17 mg/dL (7-18); Calcium,Total 10.4 mg/dL (8.5-10.1); Chloride 107 mmol/L (98-107); Cholesterol 179 mg/dL (200); Creatinine, Serum 1.21 mg/dL (0.70-1.30); EST Glomerular Filtration Rate 62 mL/min (>60); Est Glom Filt Rate - Afr Amer 75 mL/min (>60); Globulin 3.8 g/dL (2.2-4.2); Glucose 140 mg/dL (74-106); High Density Lipoprotein 43 mg/dL; Magnesium 1.9 mg/dL (1.6-2.6); Phosphorus 3.1 mg/dL (2.5-4.9); Potassium 4.6 mmol/L (3.5-5.1); Protein, Total 7.8 g/dL (6.4-8.2); Sodium Level 138 mmol/L (136-145); Triglycerides 279 mg/dL; Uric Acid 6.9 mg/dL (3.5-7.2); Very Low Density Lipoprotein 56 mg/dL (5-40)
[2024-03-02 16:43] LABS: Protein, Urine (Random) 24.7 mg/dL (<11.9); Protein:Creat Ratio 202 mg/g CRE (0-200)
== END | disposition home or self-care (01) ==
PROVIDERS: PCP Family Medicine
DX: R74.01 Elevation of levels of liver transaminase levels (principal); N18.30 Chronic kidney disease, stage 3 unspecified; I12.9 Hypertensive chronic kidney disease with stage 1 through stage 4 chronic kidney disease, or unspecified chronic kidney disease; E79.0 Hyperuricemia without signs of inflammatory arthritis and tophaceous disease; E55.9 Vitamin D deficiency, unspecified
CPT/HCPCS: 36415; 76705; 76981; 80053; 80061; 81001; 82306; 82570; 83735; 83970; 84100; 84156; 84550; 85025

== ENCOUNTER → 2024-07-12 | Outpatient (CLI) | payer MEDICARE, SELFPAY ==
[2024-07-12 10:17] LABS: Absolute Lymphocyte Count 1.84 X10^3/uL (0.83-4.51); Absolute Neutrophil Count 3.5 X10^3/uL (2.0-7.7); Basophil# 0.04 X10^3/uL; Basophil% 0.7 % (0-1); Eosinophils% 3.3 % (0-5); Hemoglobin 14.2 g/dL (13.0-16.5); Lymphocyte # 1.84 X10^3/ul (0.83-4.51); Lymphocyte % 30.6 % (19-41); Mean Corp Hgb Conc 33.8 g/dL (32-36); Mean Corpuscular Hgb 32.4 pg (27.0-32.0); Mean Corpuscular Volume 95.9 fL (80-94); Mean Platelet Vol. 10.1 fl (6.2-12.0); Monocyte# 0.38 X10^3/uL; Monocyte% 6.3 % (0-10); NRBC Flagged by Analyzer 0 % (0-5); Neutrophil # 3.53 X10^3/uL (2.7-7.7); Neutrophil % 58.8 % (47-70); Platelet Count 179 K/mm3 (150-450); RBC Distribution Width CV 13.1 % (11.6-14.6); RBC Distribution Width SD 46.1 fl (35.1-43.9); Red Blood Count 4.38 M/mm3 (4.6-6.2)
[2024-07-12 10:48] LABS: PTHIN 79.4 pg/mL (18.4-80.1)
[2024-07-12 11:15] LABS: AST(SGOT) 36 U/L (15-37); Alanine Aminotransfer ALT/SGPT 55 U/L (16-61); Albumin, Serum 3.7 g/dL (3.2-5.0); Alkaline Phosphatase 86 U/L (45-117); Anion Gap 10 (5-15); BUN 14 mg/dL (7-18); BUN/Creat Ratio 9.9 RATIO (10-20); Calcium,Total 9.8 mg/dL (8.5-10.1); Chloride 106 mmol/L (98-107); Cholesterol 196 mg/dL (200); Creatinine, Serum 1.41 mg/dL (0.70-1.30); EST Glomerular Filtration Rate 52 mL/min (>60); Est Glom Filt Rate - Afr Amer 63 mL/min (>60); Globulin 3.7 g/dL (2.2-4.2); Glucose 218 mg/dL (74-106); High Density Lipoprotein 46 mg/dL; Magnesium 2.3 mg/dL (1.6-2.6); PSA,Total - Annual Screen 1.19 ng/mL (0.00-4.00); Protein, Total 7.4 g/dL (6.4-8.2); Sodium Level 138 mmol/L (136-145); Triglycerides 480 mg/dL; Uric Acid 6.6 mg/dL (3.5-7.2)
== END | disposition home or self-care (01) ==
LOC: MFPLAB 09:04
PROVIDERS: PCP Family Medicine; Visit Provider Family Medicine
DX: I12.9 Hypertensive chronic kidney disease with stage 1 through stage 4 chronic kidney disease, or unspecified chronic kidney disease (principal); N18.30 Chronic kidney disease, stage 3 unspecified; E55.9 Vitamin D deficiency, unspecified; Z12.5 Encounter for screening for malignant neoplasm of prostate
CPT/HCPCS: 36415; 80053; 80061; 82306; 83735; 83970; 84153; 84443; 84550; 85025; G0103

== ENCOUNTER → 2024-09-28 | Outpatient (CLI) | payer MEDICARE, SELFPAY ==
[2024-09-28 10:00] LABS: Absolute Lymphocyte Count 1.97 X10^3/uL (0.83-4.51); Absolute Neutrophil Count 3.2 X10^3/uL (2.0-7.7); Basophil# 0.04 X10^3/uL; Basophil% 0.7 % (0-1); Eosinophil# 0.19 X10^3/uL; Eosinophils% 3.2 % (0-5); Hematocrit 43.5 % (40-54); Hemoglobin 15.2 g/dL (13.0-16.5); Lymphocyte # 1.97 X10^3/ul (0.83-4.51); Lymphocyte % 33.1 % (19-41); Mean Corp Hgb Conc 34.9 g/dL (32-36); Mean Corpuscular Hgb 33.3 pg (27.0-32.0); Mean Corpuscular Volume 95.2 fL (80-94); Mean Platelet Vol. 10.3 fl (6.2-12.0); Monocyte# 0.48 X10^3/uL; Monocyte% 8.1 % (0-10); NRBC Flagged by Analyzer 0 % (0-5); Neutrophil # 3.24 X10^3/uL (2.7-7.7); Neutrophil % 54.2 % (47-70); Platelet Count 208 K/mm3 (150-450); RBC Distribution Width CV 12.7 % (11.6-14.6); RBC Distribution Width SD 44.3 fl (35.1-43.9); Red Blood Count 4.57 M/mm3 (4.6-6.2)
[2024-09-28 10:10] LABS: International Normalized Ratio 1.2; Prothrombin Time (Protime)PT. 15.3 SECONDS (11.7-14.9)
[2024-09-28 10:38] LABS: ALB/GLOB Ratio 1.2 RATIO (0.9-2.4); AST(SGOT) 39 U/L (15-37); Alanine Aminotransfer ALT/SGPT 58 U/L (16-61); Albumin, Serum 4.3 g/dL (3.2-5.0); Alkaline Phosphatase 79 U/L (45-117); Anion Gap 7 (5-15); BUN 19 mg/dL (7-18); BUN/Creat Ratio 13.3 RATIO (10-20); CRP < 2.90 mg/L (0.0-3.0); Calcium,Total 10.1 mg/dL (8.5-10.1); Chloride 105 mmol/L (98-107); Cholesterol 223 mg/dL (200); Creatinine, Serum 1.43 mg/dL (0.70-1.30); EST Glomerular Filtration Rate 51 mL/min (>60); Est Glom Filt Rate - Afr Amer 62 mL/min (>60); Ferritin 584 ng/mL (26-388); Globulin 3.6 g/dL (2.2-4.2); Glucose 152 mg/dL (74-106); High Density Lipoprotein 38 mg/dL; Potassium 4.2 mmol/L (3.5-5.1); Protein, Total 7.9 g/dL (6.4-8.2); Sodium Level 137 mmol/L (136-145); Triglycerides 427 mg/dL
[2024-09-28 12:26] LABS: Hemoglobin A1c 5.2 % (3.8-5.6)
[2024-09-28 14:19] LABS: HIV - WCH Non-Reactive (Nonreactive); Hepatitis B Surface Antibody Non-Reactive; Vitamin B12 680 pg/mL (211-911)
[2024-09-29 15:07] LABS: ANTINUCLEAR ANTIBODIES DIRECT Negative (Negative); Anti-Mitochondrial AB <20.0 Units (0.0-20.0)
[2024-10-03 09:08] LABS: AFP, Tumor Marker 6.3 ng/mL (0.0-8.4); Albumin 3.9 g/dL (2.9-4.4); Alpha-1-Globulins 0.2 g/dL (0.0-0.4); Anti-Smooth Muscle ABS 7 Units (0-19); CMV by PCR Negative (Negative); Ceruloplasmin 25.2 mg/dL (16.0-31.0); Copper, Serum or Plasma 98 ug/dL (69-132); Cytoplasmic Ab (C-ANCA) <1:20 titer (Neg:<1:20); Endomysial Antibody IgA Negative (Negative); Gamma Globulin 1.2 g/dL (0.4-1.8); Immunoglobulin A 219 mg/dL (61-437); Immunoglobulin E 21 IU/mL (6-495); Immunoglobulin G 1037 mg/dL (603-1613); Immunoglobulin M 48 mg/dL (15-143); PROEL- TOTAL PROTEIN 7.5 g/dL (6.0-8.5); Perinuclear Ab (P-ANCA) <1:20 titer (Neg:<1:20); t-Transglutaminase IgA <2 U/mL (0-3)
== END | disposition home or self-care (01) ==
PROVIDERS: PCP Family Medicine; Referring Provider Internal Medicine; Visit Provider Internal Medicine
DX: R94.5 Abnormal results of liver function studies (principal); I12.9 Hypertensive chronic kidney disease with stage 1 through stage 4 chronic kidney disease, or unspecified chronic kidney disease; N18.9 Chronic kidney disease, unspecified; R20.0 Anesthesia of skin; R20.2 Paresthesia of skin
CPT/HCPCS: 36415; 80053; 80061; 82105; 82390; 82525; 82607; 82728; 82746; 82784; 82785; 83036; 83516; 84165; 84443; 85025; 85610; 86037; 86038; 86140; 86225; 86235; 86255; 86334; 86703; 86706; 87496

== ENCOUNTER 2024-11-01 10:37 | Emergency (ER) | payer MEDICARE, SELFPAY ==
[2024-11-01 10:39] VITALS: BP 128/96; PULSE 47; RESP 18; TEMP 36.3; O2SAT 92; BMI 32.1
--- NOTE | 2024-11-01 10:49 | CT_ITS ---
EXAM: CT ABDOMEN AND PELVIS WITH INTRAVENOUS CONTRAST CLINICAL INDICATION: Left lower quadrant abdominal pain with peritoneal TECHNIQUE: Helically acquired images were obtained of the abdomen and pelvis with intravenous contrast. This CT exam was performed using one or more of the following dose reduction techniques: automated exposure control, adjustment of the mA and/or kV according to patient size, and/or use of iterative reconstruction technique. CONTRAST: IV 100mL Isovue-300 RADIATION DOSE: CTDIvol = 17.22 mGy, DLP = 1144.39 mGy-cm COMPARISON: CT abdomen and pelvis with contrast 04/24/2022. FINDINGS: LOWER THORAX: Band atelectasis in the posterior lung bases. No cardiomegaly. No significant pericardial effusion. ABDOMEN: LIVER: Mild diffuse fatty infiltration of the liver. GALLBLADDER AND BILE DUCTS: Unremarkable. No calcified gallstones. No gallbladder distention or wall edema. No intra- or extrahepatic biliary ductal dilation. PANCREAS: Unremarkable. No focal cystic or solid mass. SPLEEN: Unremarkable. Normal size without focal cystic or solid mass. ADRENALS: Unremarkable. No nodules. KIDNEYS AND URETERS: Unremarkable. Normal renal size and position. No hydronephrosis. STOMACH AND BOWEL: Intramural thickening with diverticula and haziness of the pericolic fat consistent with acute diverticulitis of the sigmoid colon. No diverticular abscess. No stomach or bowel distention. PELVIS: APPENDIX: Normal. BLADDER: Unremarkable. REPRODUCTIVE: Unremarkable as visualized. No mass. ABDOMEN and PELVIS: INTRAPERITONEAL SPACE: Unremarkable. No ascites or other fluid collection. No free air. BONES/JOINTS: L5-S1 degenerative disc space height narrowing with degenerative vacuum phenomenon. No suspicious lytic or blastic abnormality. SOFT TISSUES: Unremarkable. No discrete abdominal or pelvic wall hernia. VASCULATURE: Calcified plaques along the abdominal aorta and iliac arteries. Abdominal aorta is non-dilated. LYMPH NODES: Unremarkable. No enlarged lymph nodes. CT/Abdomen/Pelvis W IV Cont ONLY IMPRESSION: 1. Acute diverticulitis of the sigmoid colon. 2. Mild diffuse hepatic steatosis. 3. No other additional findings or changes when compared to 03/25/2022. Electronically Signed: Kyle Winslow MD at 12:07 EST ,
--- NOTE | 2024-11-01 10:51 | EDS_ITS ---
HPI History of Present Illness Chief Complaint: Abd Pain Detail of Chief Complaint: Left lower quadrant abdominal pain that started yesterday. Informant: patient Onset/Context/Timing Onset: Yesterday Context: Sudden Onset Timing: Continuous Quality: Pain Location: Left lower quadrant Current Severity: Mild Maximum Severity: Severe Worsened by: Walking, laughing, deep palpation Relieved by: Nothing Associated Symptoms Associated Symptoms: No constitutional symptoms. No GI symptoms other than pain and no urologic Narrative Narrative: Patient is a 74-year-old male. He presents with left lower quadrant abdominal pain that started yesterday. He does have a history of diverticulosis/diverticulitis. Is not had left lower quadrant pain for some time. He denies fever or chills. He denies nausea, vomiting or diarrhea. He denies constipation. He is still fluctuating. He denies dysuria, frequency, urgency or hematuria. He denies scrotal pain. Patient denies cardiac or respiratory symptoms. Patient does have history of paroxysmal atrial fibrillation on Eliquis. His last visit for acute diverticulitis was April 20, 2018. Prior similar symptoms: Yes Recent Illness/Hospitalization: No PFSH PFSH Medical History Wears contact lenses Alcohol use History of diverticulitis Former smoker CPAP (continuous positive airway pressure) dependence History of echocardiogram History of stress test Cardiology follow-up encounter History of atrial fibrillation Personal history of colonic polyps Umbilical hernia, incarcerated Family hx of colon cancer Sleep apnea Scalp cyst Paroxysmal atrial fibrillation Complex renal cyst Bilateral plantar fasciitis Fatty liver GASPER (obstructive sleep apnea) Essential hypertension Syncope Screening for intestinal cancer Arthritis Diverticulitis Home Medications ?Medication ?Instructions ?Recorded ?Last Taken ?Type cholecalciferol (vitamin D3) 25 1,000 unit PO DAILY vitamin 06/06/18 07/31/19 History mcg (1,000 unit) tablet glucosamine HCl 1,500 mg tablet 1,500 mg PO DAILY arthritis 06/06/18 07/31/19 History multivitamin,au-pura-ywdiozap 27 1 tab PO DAILY vitamin 06/06/18 07/31/19 History mg-0.4 mg tablet metoprolol tartrate 50 mg tablet 50 mg PO BID 08/10/19 09/01/20 History apixaban 5 mg tablet 5 mg PO BID #60 tabs 10/03/19 Unknown Rx allopurinol 100 mg tablet 100 mg PO DAILY 03/17/21 Unknown History losartan 50 mg tablet 100 mg PO DAILY 03/16/24 Unknown History sildenafil 100 mg tablet (Viagra) 100 mg PO DAILY PRN sexual activity 03/16/24 Unknown History fenofibrate nanocrystallized 48 mg 48 mg PO QHS 1 month #30 tabs 10/02/24 Unknown Rx tablet metformin 500 mg tablet 500 mg PO BID 90 days #180 tabs 10/02/24 Unknown Rx rosuvastatin 10 mg tablet 10 mg PO QHS 1 month #30 tabs 10/02/24 Unknown Rx amoxicillin 875 mg-potassium 875 mg PO Q12H #20 TABLETS 11/01/24 Unknown Rx clavulanate 125 mg tablet Allergy/AdvReac Type Severity Reaction Status Date / Time No Known Allergies Allergy Verified 11/01/24 10:39 Family History Mother Breast cancer Heart disease Thyroid disorder Atrial fibrillation Hypertension Father Hypertension Diabetes Cancer Lung Brother Heart disease Cancer Daughter Colon cancer Surgical History Hx of umbilical hernia repair Hx of colonoscopy History of tonsillectomy Aftercare following finger joint replacement surgery Social History household members: spouse housing: house Smoking Status: Former smoker how long ago did patient quit smokin alcohol intake: current alcohol intake frequency: a few times a month substance use type: does not use caffeine: Yes Type: coffee Number of servings: 2 what type of physical activity do you participate in: none frequency: does not exercise ROS ROS ED Constitutional Constitutional ED: Denies chills, fever(s), subjective, sweats or weight loss Eyes Eyes: Denies blurry vision, change in vision or diplopia ENT ENT ED: Denies ear pain, rhinorrhea or sore throat Cardiovascular Cardiovascular: Denies chest pain, palpitations or racing heartbeat Respiratory/Chest Respiratory/Chest: Denies cough, dyspnea or dyspnea on exertion Gastrointestinal Gastrointestinal: Reports abdominal pain; Denies constipation, diarrhea, melena, nausea or vomiting Genitourinary Genitourinary ED: Denies dysuria, hematuria or urinary frequency Musculoskeletal Musculoskeletal: Denies back pain Integumentary Denies rash Hematologic/Lymphatic Hematologic/Lymphatic: Reports systems reviewed and no addt'l complaints, except as documented EXAM Physical Exam Const Vital Signs: 11/01/24 10:39 Temperature 97.4 F L Temperature Source Temporal Pulse Rate 47 L Respiratory Rate 18 Blood Pressure 128/96 H Blood Pressure Mean 106 Pulse Ox 92 Triage heart rate was noted. Patient is a normal sinus rhythm narrow complex with a rate in the 60 range. Positive well nourished Constitutional Narrative: BMI is 32.1. General Appearance ED: NAD; Negative for cyanotic, diaphoretic or pallor HEENT Reports moist mucous membranes HEENT Narrative: Patient has alopecia. Scalp is unremarkable. Ears normal. Nares patent. Mucosa is moist. Eyes PERRL and EOMs intact bilaterally General Eye ED: Negative for pale conjunctiva or scleral icterus Neck supple and no JVD Resp normal respiratory effort and clear to auscultation bilaterally Cardio regular rate, regular rhythm, S1 normal heart sound, S2 normal heart sound and no murmurs GI non-distended and no masses; Negative for non-tender or hepatosplenomegaly Auscultation: hyperactive bowel sounds Palpation: soft, tender LLQ, guarding LLQ and rebound tenderness present other (Left lower quadrant); Negative for splenomegaly or mass Back/Spine no CVA tenderness Extremity normal to inspection General Extremety ED: Negative for edema or tenderness General Extremity: Negative for edema Neuro oriented x3 and CN's II-XII intact bilaterally Sensorium / Orientation: alert Psych mental status grossly normal Skin no rashes or lesions noted, no wounds and skin turgor normal General Skin Exam: elasticity normal; Negative for jaundice or pallor MDM MDM MDM Narrative Medical decision making narrative: Differential diagnosis would include acute diverticulitis, diverticulitis with abscess, concern for perforated diverticulum since patient has peritoneal findings. This could represent atypical presentation for urologic pathology, patient was started on Zosyn since he has peritoneal findings. Appropriate blood work was obtained to risk ratified for inpatient versus outpatient treatment CT of the abdomen pelvis with IV contrast was ordered. History & Record Review Additional record(s) reviewed:: Prior outpatient record (Note of third by Dr. Ferrer August 11 for hypertension. H&P and colonoscopy for screening intestinal cancer outpatient outside facility May 2018. Office visits for hypertension July 2019), Prior ED visit (ER visit for laceration,.) and Other (History and physical authored by Dr. Gillespie follow-up of colonic polyps.) Lab Data Attestation: I reviewed the patient's lab results. Lab results narrative: CBC is unremarkable. MCV and MCH are slightly elevated otherwise normal. There is no shift. There is increased monocytes noted. Competence of metabolic panel is marked for a BUN of 17 with a creatinine of 1.46. Creatinine is at his baseline. Dilute dual bili is slight elevated 1.50. Comprehensive metabolic panel otherwise unremarkable. Labs: Laboratory Results - last 24 hr 11/01/24 11:01 WBC 9.9 RBC 4.40 L Hgb 14.3 Hct 42.5 MCV 96.6 H MCH 32.5 H MCHC 33.6 RDW Std Deviation 47.5 H RDW Coeff of Chanel 13.2 Plt Count 178 MPV 9.6 Immature Gran % (Auto) 0.400 Neut % (Auto) 60.0 Lymph % (Auto) 25.9 [place] % (Auto) 11.7 H Eos % (Auto) 1.7 Baso % (Auto) 0.3 Absolute Neuts (auto) 5.9 Absolute Lymphs (auto) 2.56 Nucleated RBC % 0 Sodium 138 Potassium 4.2 Chloride 107 Carbon Dioxide 26.0 Anion Gap 5 BUN 17 Creatinine 1.46 H Estim Creat Clear Calc 49.08 Est GFR (MDRD) Af Amer 61 Est GFR (MDRD) Non-Af 50 L BUN/Creatinine Ratio 11.6 Glucose 125 H Calcium 9.7 Total Bilirubin 1.50 H AST 25 ALT 50 Alkaline Phosphatase 77 Total Protein 7.6 Albumin 3.8 Globulin 3.8 Albumin/Globulin Ratio 1.0 Radiography Diagnostic Testing: Clinical Impression(s) from Imaging Studies Abdomen/Pelvis CT 11/01/24 10:49 IMPRESSION: 1. Acute diverticulitis of the sigmoid colon. 2. Mild diffuse hepatic steatosis. 3. No other additional findings or changes when compared to 03/25/2022. Electronically Signed: Kyle Winslow MD at 12:07 EST , CT of the abdomen and pelvis with IV contrast was reviewed by me at 10/25/2000. There is evidence of diverticulitis with inflammatory changes no left lower quadrant slides 72 through 79. Question of microperforation. Awaiting formal read by radiologist. Management Discussion w/another healthcare provider: PCP (Spoke with Dr. Leonardo Kidd patient's PCP. He was made aware of patient's history physical. Treatment plan. Patient to follow-up in 2 days for reevaluation.) Treatment and Re-Evaluation :: Patient was reexamined. Does have tenderness that is significant in the left lower quadrant with guarding. He has no percussion tenderness. There is referred pain to the left lower quadrant with palpation of the right lower quadrant. Since patient has a normal temperature, normal white count and is not hemodynamic unstable explained that he is potentially a candidate for outpatient therapy. Patient understands he may get worse and if so to return. Discharge Plan Triage Chief Complaint: Abd Pain ED Provider: Thierry Singh Dx/Rx/DC Orders Clinical Impression: Diverticulitis of sigmoid colon, CKD (chronic kidney disease), stage III, Metabolic dysfunction-associated steatotic liver disease (MASLD), Essential hypertension, Anticoagulant long-term use Instructions: ED Diverticulitis Prescriptions: New amoxicillin-pot clavulanate 875-125 mg tablet 875 mg PO Q12H Qty: 20 0RF No Action metoprolol tartrate 50 mg tablet 50 mg PO BID apixaban 5 mg tablet 5 mg PO BID Qty: 60 6RF allopurinol 100 mg tablet 100 mg PO DAILY losartan 50 mg tablet 100 mg PO DAILY sildenafil [Viagra] 100 mg tablet 100 mg PO DAILY PRN (Reason: sexual activity) Rx Instructions: administer 30 minutes to 4 hours before activity fenofibrate nanocrystallized 48 mg tablet 48 mg PO QHS 30 Days Qty: 30 4RF metformin 500 mg tablet 500 mg PO BID 90 Days Qty: 180 1RF rosuvastatin 10 mg tablet 10 mg PO QHS 30 Days Qty: 30 4RF multivitamin,nf-osmr-emjeehbh 1 TABLET tablet 1 tab PO DAILY cholecalciferol (vitamin D3) 1,000 UNIT tablet 1,000 unit PO DAILY glucosamine HCl 1,500 MG tablet 1,500 mg PO DAILY Primary Care Provider: Leonardo Kidd Referrals: Leonardo Kidd MD [Primary Care Provider] - 2 Days Print Language: American Disposition Disposition: Home, Self Care
[2024-11-01] MEDS: Piperacil/Tazobactam 4.5 GM in 0.9% Normal Saline (100mL MB+) 100 ML IV (11:10)
[2024-11-01 11:18] LABS: Absolute Lymphocyte Count 2.56 X10^3/uL (0.83-4.51); Absolute Neutrophil Count 5.9 X10^3/uL (2.0-7.7); Basophil# 0.03 X10^3/uL; Basophil% 0.3 % (0-1); Eosinophil# 0.17 X10^3/uL; Eosinophils% 1.7 % (0-5); Hematocrit 42.5 % (40-54); Hemoglobin 14.3 g/dL (13.0-16.5); Lymphocyte # 2.56 X10^3/ul (0.83-4.51); Lymphocyte % 25.9 % (19-41); Mean Corp Hgb Conc 33.6 g/dL (32-36); Mean Corpuscular Hgb 32.5 pg (27.0-32.0); Mean Corpuscular Volume 96.6 fL (80-94); Mean Platelet Vol. 9.6 fl (6.2-12.0); Monocyte# 1.15 X10^3/uL; Monocyte% 11.7 % (0-10); NRBC Flagged by Analyzer 0 % (0-5); Neutrophil # 5.92 X10^3/uL (2.7-7.7); Platelet Count 178 K/mm3 (150-450); RBC Distribution Width CV 13.2 % (11.6-14.6); RBC Distribution Width SD 47.5 fl (35.1-43.9); White Blood Count 9.9 K/mm3 (4.4-11.0)
[2024-11-01 11:40] LABS: AST(SGOT) 25 U/L (15-37); Alanine Aminotransfer ALT/SGPT 50 U/L (16-61); Albumin, Serum 3.8 g/dL (3.2-5.0); Alkaline Phosphatase 77 U/L (45-117); Anion Gap 5 (5-15); BUN 17 mg/dL (7-18); BUN/Creat Ratio 11.6 RATIO (10-20); Calcium,Total 9.7 mg/dL (8.5-10.1); Chloride 107 mmol/L (98-107); Creatinine, Serum 1.46 mg/dL (0.70-1.30); EST Glomerular Filtration Rate 50 mL/min (>60); Est Glom Filt Rate - Afr Amer 61 mL/min (>60); Estimated Creatinine Clearance 49.08 ml/min; Globulin 3.8 g/dL (2.2-4.2); Glucose 125 mg/dL (74-106); Potassium 4.2 mmol/L (3.5-5.1); Protein, Total 7.6 g/dL (6.4-8.2); Sodium Level 138 mmol/L (136-145)
[2024-11-01 12:00] VITALS: BP 114/67; PULSE 56; RESP 19
[2024-11-01 12:31] VITALS: BP 114/67; PULSE 56; RESP 19; TEMP 36.8; O2SAT 100
== END 2024-11-01 12:48 | disposition home or self-care (01) ==
PROVIDERS: Emergency Provider Emergency Medicine; PCP Family Medicine; Visit Provider Emergency Medicine
DX: K57.32 Diverticulitis of large intestine without perforation or abscess without bleeding (principal); I48.0 Paroxysmal atrial fibrillation; N18.30 Chronic kidney disease, stage 3 unspecified; K76.0 Fatty (change of) liver, not elsewhere classified; I12.9 Hypertensive chronic kidney disease with stage 1 through stage 4 chronic kidney disease, or unspecified chronic kidney disease; Z79.01 Long term (current) use of anticoagulants; Z79.899 Other long term (current) drug therapy; Z86.0100 Personal history of colon polyps, unspecified; Z87.891 Personal history of nicotine dependence; Z80.0 Family history of malignant neoplasm of digestive organs
CPT/HCPCS: 74177; 80053; 85025; 96365; 99283; Q9967; A4216

== ENCOUNTER → 2024-12-11 | Outpatient (CLI) | payer MEDICARE, SELFPAY ==
[2024-12-11 16:15] LABS: Bacteria 0 SEEN /hpf (None Seen); Mucous, Urine 0 SEEN /hpf (<or=2+); Squamous Epithelial Cells - UA 0 SEEN /hpf (0-5)
[2024-12-11 18:03] LABS: Color, Urine Yellow (Yellow); Glucose, Dipstick Normal (Normal); Ketone-Dipstick Negative (Negative); Leukocyte Esterase-Dipstick Negative /ul (Negative); Nitrite-Dipstick Negative (Negative); Occult Blood-Urine Negative /ul (Negative); Protein-Dipstick 15 mg/dl (Negative); Urine Bilirubin Dipstick Negative (Negative); Urine Clarity Clear (Clear); Urine Urobilinogen Normal (Normal)
[2024-12-11 18:09] LABS: Protein, Urine (Random) 8.6 mg/dL (<11.9); Protein:Creat Ratio 169 mg/g CRE (0-200)
[2024-12-11 18:18] LABS: Absolute Lymphocyte Count 3.24 X10^3/uL (0.83-4.51); Absolute Neutrophil Count 4.7 X10^3/uL (2.0-7.7); Basophil# 0.05 X10^3/uL; Basophil% 0.6 % (0-1); Eosinophil# 0.23 X10^3/uL; Eosinophils% 2.5 % (0-5); Hematocrit 44.1 % (40-54); Hemoglobin 14.7 g/dL (13.0-16.5); Lymphocyte # 3.24 X10^3/ul (0.83-4.51); Lymphocyte % 35.6 % (19-41); Mean Corp Hgb Conc 33.3 g/dL (32-36); Mean Corpuscular Hgb 31.5 pg (27.0-32.0); Mean Corpuscular Volume 94.6 fL (80-94); Mean Platelet Vol. 10.4 fl (6.2-12.0); Monocyte# 0.85 X10^3/uL; Monocyte% 9.4 % (0-10); NRBC Flagged by Analyzer 0 % (0-5); Neutrophil # 4.69 X10^3/uL (2.7-7.7); Neutrophil % 51.6 % (47-70); Platelet Count 196 K/mm3 (150-450); RBC Distribution Width CV 13.8 % (11.6-14.6); RBC Distribution Width SD 47.8 fl (35.1-43.9); Red Blood Count 4.66 M/mm3 (4.6-6.2); White Blood Count 9.1 K/mm3 (4.4-11.0)
[2024-12-11 18:19] LABS: PTHIN 48.6 pg/mL (18.4-80.1)
[2024-12-11 18:21] LABS: AST(SGOT) 32 U/L (15-37); Alanine Aminotransfer ALT/SGPT 47 U/L (16-61); Albumin, Serum 4.1 g/dL (3.2-5.0); Alkaline Phosphatase 87 U/L (45-117); Anion Gap 11 (5-15); BUN 21 mg/dL (7-18); BUN/Creat Ratio 17.8 RATIO (10-20); Calcium,Total 10.7 mg/dL (8.5-10.1); Chloride 101 mmol/L (98-107); Creatinine, Serum 1.18 mg/dL (0.70-1.30); EST Glomerular Filtration Rate 64 mL/min (>60); Est Glom Filt Rate - Afr Amer 77 mL/min (>60); Glucose 103 mg/dL (74-106); Magnesium 1.8 mg/dL (1.6-2.6); Phosphorus 4.1 mg/dL (2.5-4.9); Potassium 4.1 mmol/L (3.5-5.1); Protein, Total 8.1 g/dL (6.4-8.2); Sodium Level 135 mmol/L (136-145); Uric Acid 6.3 mg/dL (3.5-7.2)
[2024-12-11 19:29] LABS: Hyaline Cast 0-5 SEEN /lpf (0-5); Red Blood Cells-Urine 0-5 SEEN /hpf (0-5); White Blood Cells 0-5 SEEN /hpf (0-5)
[2024-12-13 14:45] LABS: Vitamin D,25 Hydroxy 48.5 ng/mL
== END | disposition home or self-care (01) ==
LOC: MFPLAB 16:12
PROVIDERS: PCP Family Medicine; Referring Provider Family Medicine; Visit Provider Family Medicine
DX: I12.9 Hypertensive chronic kidney disease with stage 1 through stage 4 chronic kidney disease, or unspecified chronic kidney disease (principal); I48.0 Paroxysmal atrial fibrillation; N18.30 Chronic kidney disease, stage 3 unspecified; E79.0 Hyperuricemia without signs of inflammatory arthritis and tophaceous disease; E55.9 Vitamin D deficiency, unspecified
CPT/HCPCS: 36415; 80053; 81001; 82306; 82570; 83735; 83970; 84100; 84156; 84550; 85025

== ENCOUNTER → 2025-01-15 | Outpatient (CLI) | payer MEDICARE, SELFPAY ==
--- NOTE | 2025-01-15 09:06 | NM_ITS ---
PROCEDURE: PARATHYROID SCAN REASON FOR EXAM: 74-year-old male, elevated serum calcium (10.7 mg/dL) TECHNIQUE: Nuclear medicine parathyroid imaging performed following intravenous technetium- 99m sestamibi administration. Anterior imaging of the neck through 2 hours. RADIOPHARMACEUTICAL: 26.8 mCi of 99 technetium sestamibi COMPARISON: None. FINDINGS: There is prompt asymmetric uptake in the early phase within the lower left thyroid region, which remains active during the late phase. NM/Parathyroid Scan IMPRESSION: Probable left parathyroid adenoma. Correlation with ultrasound recommended. Reading Location: [id number]
== END | disposition home or self-care (01) ==
LOC: NM 09:03
PROVIDERS: PCP Family Medicine; Referring Provider Family Medicine; Visit Provider Family Medicine
DX: E83.52 Hypercalcemia (principal)
CPT/HCPCS: 78070; A9500

== ENCOUNTER → 2025-04-10 | Outpatient (CLI) | payer MEDICARE, SELFPAY ==
[2025-04-10 08:35] LABS: Mucous, Urine 0 SEEN /hpf (<or=2+); Red Blood Cells-Urine 0 SEEN /hpf (0-5)
[2025-04-10 10:49] LABS: Absolute Lymphocyte Count 1.72 X10^3/uL (0.83-4.51); Absolute Neutrophil Count 2.2 X10^3/uL (2.0-7.7); Basophil# 0.04 X10^3/uL; Basophil% 0.9 % (0-1); Eosinophil# 0.19 X10^3/uL; Eosinophils% 4.2 % (0-5); Hemoglobin 13.8 g/dL (13.0-16.5); Lymphocyte # 1.72 X10^3/ul (0.83-4.51); Lymphocyte % 37.7 % (19-41); Mean Corp Hgb Conc 34.5 g/dL (32-36); Mean Corpuscular Hgb 33.4 pg (27.0-32.0); Mean Corpuscular Volume 96.9 fL (80-94); Mean Platelet Vol. 10.1 fl (6.2-12.0); Monocyte# 0.37 X10^3/uL; Monocyte% 8.1 % (0-10); NRBC Flagged by Analyzer 0 % (0-5); Neutrophil # 2.23 X10^3/uL (2.7-7.7); Neutrophil % 48.9 % (47-70); Platelet Count 147 K/mm3 (150-450); RBC Distribution Width CV 13.2 % (11.6-14.6); RBC Distribution Width SD 47.1 fl (35.1-43.9); Red Blood Count 4.13 M/mm3 (4.6-6.2); White Blood Count 4.6 K/mm3 (4.4-11.0)
[2025-04-10 11:19] LABS: Protein:Creat Ratio 146 mg/g CRE (0-200)
[2025-04-10 11:19] LABS: PTHIN 44 pg/mL (11-61)
[2025-04-10 11:22] LABS: ALB/GLOB Ratio 1.7 RATIO (0.9-2.4); AST(SGOT) 39 U/L (<=37); Alanine Aminotransfer ALT/SGPT 54 U/L (<=46); Albumin, Serum 4.3 g/dL (3.4-4.8); Alkaline Phosphatase 80 U/L (40-129); Anion Gap 10 (5-15); BUN 17 mg/dL (4-19); BUN/Creat Ratio 13.6 RATIO (10-20); Calcium,Total 10.1 mg/dL (7.6-11.0); Carbon Dioxide 25.1 mmol/L (21.0-32.0); Chloride 103 mmol/L (98-108); Cholesterol 192 mg/dL (<=200); Creatinine, Serum 1.23 mg/dL (0.70-1.20); EST Glomerular Filtration Rate 61 (>60); Globulin 2.6 g/dL (2.2-4.2); Glucose 212 mg/dL (70-99); High Density Lipoprotein 39 mg/dL; Low Density Lipoprotein Calc. 88 mg/dL; Magnesium 1.9 mg/dL (1.5-2.2); Phosphorus 2.2 mg/dL (2.7-4.5); Potassium 4.5 mmol/L (3.3-5.1); Protein, Total 6.9 g/dL (5.9-8.4); Sodium Level 138 mmol/L (133-145); Total Bilirubin 0.61 mg/dL (0.00-1.30); Triglycerides 326 mg/dL; Uric Acid 7.5 mg/dL (3.5-7.2); Very Low Density Lipoprotein 65 mg/dL (5-40); cholesterol:hdl ratio screen 4.95
[2025-04-10 12:55] LABS: Color, Urine Yellow (Yellow); Glucose, Dipstick 100 mg/dl (Normal); Ketone-Dipstick Negative (Negative); Leukocyte Esterase-Dipstick Negative /ul (Negative); Nitrite-Dipstick Negative (Negative); Occult Blood-Urine Negative /ul (Negative); Protein-Dipstick 30 mg/dl (Negative); Specific Gravity, Urine 1.015 (1.002-1.030); Urine Bilirubin Dipstick Negative (Negative); Urine Clarity Clear (Clear); Urine Urobilinogen Normal (Normal)
[2025-04-10 13:11] LABS: Bacteria RARE /hpf (None Seen); Squamous Epithelial Cells - UA 0-5 SEEN /hpf (0-5); White Blood Cells 0-5 SEEN /hpf (0-5)
== END | disposition home or self-care (01) ==
LOC: MFPLAB 08:24
PROVIDERS: PCP Family Medicine; Visit Provider Family Medicine
DX: I12.9 Hypertensive chronic kidney disease with stage 1 through stage 4 chronic kidney disease, or unspecified chronic kidney disease (principal); I48.0 Paroxysmal atrial fibrillation; N18.30 Chronic kidney disease, stage 3 unspecified; D35.1 Benign neoplasm of parathyroid gland; E55.9 Vitamin D deficiency, unspecified; E79.0 Hyperuricemia without signs of inflammatory arthritis and tophaceous disease
CPT/HCPCS: 36415; 80053; 80061; 81001; 82306; 82570; 83735; 83970; 84100; 84156; 84550; 85025